=== PATIENT | female | born 1945 | race Caucasian/White ===

== ENCOUNTER → 2016-06-28 | Outpatient (CLI) | payer OTHER ==
[~2016-06-28] MED LIST: ASPI-482 PO; BENA20TA2 PO; CHLO1CAP50 PO; CRESTOR40 MG PO; DEXL60CA PO; METO25TA9 PO; RANI150T6 PO
--- NOTE | 2016-06-28 14:16 | CARD ---
APPROVED REPORT EXAM: Two-dimensional and M-mode echocardiogram with Doppler and color Doppler. Other Information Quality : Good INDICATION Aortic Valve Disease Dyspnea Hypertension/HCVD Murmur 2D DIMENSIONS RVDd3.1 (2.9-3.5cm)Left Atrium(2D)3.7 (1.6-4.0cm) IVSd1.1 (0.7-1.1cm)Aortic Root(2D)3.0 (2.0-3.7cm) LVDd4.4 (3.9-5.9cm)LVOT Diameter2.2 (1.8-2.4cm) PWd1.1 (0.7-1.1cm)LVDs2.8 (2.5-4.0cm) FS (%) 30.0 %SV59.7 ml LVEF(%)60.0 (>50%) M-Mode DIMENSIONS Aortic Cusp Exc1.03 (1.5-2.0cm) Aortic Valve AoV Peak Aubrey.278.8cm/sAoV VTI77.9cm AO Peak GR.31.1mmHgLVOT Peak Aubrey.82.1cm/s LVOT VTI 23.23cmAO Mean GR.17mmHg ELI (VMAX)1.67xc9MNK (VTI)1.16cm2 AI P 1/2 Vfwa925wc Mitral Valve MV E Ahuubywp741.7cm/sMV DECEL OSYY923ww MV A Auylhldh57.1cm/sMV FQL30fw E/A Ratio1.2MVA (PHT)4.08cm2 TDI E/Lateral E'11.9E/Medial E'12.0 Tricuspid Valve TR P. Cqupsoox163pc/sRAP ZUEGGHIG3mpSo TR Peak Gr.01auIcBZIF28gwVp Pulmonary Vein S1 Aiphhkft50.0cm/sD2 Rkjdsmiu27.8cm/s LEFT VENTRICLE The left ventricle is normal size. There is mild concentric left ventricular hypertrophy present The left ventricular systolic function is normal and the ejection fraction is within normal range. The Ej ection Fraction is 60%. There is normal LV segmental wall motion. RIGHT VENTRICLE The right ventricle is normal size. The right ventricular systolic function is normal. ATRIA The left atrium size is mildly dilated The right atrium size is normal. The interatrial septum is int act with no evidence for an atrial septal defect or patent foramen ovale as noted on 2-D or Doppler i maging. AORTIC VALVE The aortic valve is calcified and displays decreased opening. Doppler and Color Flow revealed mild to moderate aortic regurgitation. Calculated aortic valve area is 1.1 cm2 with maximum pressure gradien t of 33 mmHg and mean pressure gradient of 18 mmHg. Doppler and color-flow analysis revealed moderate aortic stenosis. MITRAL VALVE The mitral valve is normal in structure There is no evidence of mitral valve prolapse. There is no mi tral valve stenosis. Doppler and Color-flow revealed mild mitral regurgitation. TRICUSPID VALVE The tricuspid valve is normal in structure Doppler and Color Flow revealed physiological tricuspid re gurgitation. The PA pressure was estimated at 21 mmHg. There is no tricuspid valve stenosis. PULMONIC VALVE The pulmonary valve is normal in structure Doppler and Color Flow revealed trace to mild pulmonic katherine vular regurgitation. There is no pulmonic valvular stenosis. GREAT VESSELS The aortic root is normal in size. The ascending aorta is normal in size. The IVC is normal in size a nd collapses >50% with inspiration. PERICARDIAL EFFUSION There is no evidence of significant pericardial effusion. Critical Notification Critical Value: No <Conclusion> The left ventricular systolic function is normal and the ejection fraction is within normal range. The Ejection Fraction is 60%. There is mild concentric left ventricular hypertrophy present The left atrium size is mildly dilated The right atrium size is normal. The aortic valve is calcified and displays decreased opening. Doppler and Color Flow revealed mild to moderate aortic regurgitation. Calculated aortic valve area is 1.1 cm2 with maximum pressure gradient of 33 mmHg and mean pressure g radient of 18 mmHg. Doppler and color-flow analysis revealed moderate aortic stenosis. Doppler and Color-flow revealed mild mitral regurgitation. Doppler and Color Flow revealed physiological tricuspid regurgitation. The PA pressure was estimated at 21 mmHg. Doppler and Color Flow revealed trace to mild pulmonic valvular regurgitation. There is no evidence of significant pericardial effusion.
== END | disposition home or self-care (01) ==
LOC: ECHO 09:31
PROVIDERS: ATTEND Internal Medicine Cardiovascular Disease
DX: I08.3 Combined rheumatic disorders of mitral, aortic and tricuspid valves (principal); R06.02 Shortness of breath; R01.1 Cardiac murmur, unspecified
CPT/HCPCS: 93306

== ENCOUNTER 2016-08-24 08:13 | Emergency (ER) | payer OTHER ==
[~2016-08-24] VITALS: Ht 162.6 cm; Wt 67.6 kg
[~2016-08-24 08:13] MED LIST changes: -DEXL60CA PO; +DEXL60CA2 PO
--- NOTE | 2016-08-24 08:21 | PHYS DOC ---
Adult General Chief Complaint Chief Complaint: ABDOMINAL PAIN HPI HPI Patient is a 70 year old female presenting to the emergency department for evaluation of nausea vomiting. Symptoms started last night after eating some blueberries and she is concerned that she set off her diverticulitis although she denies any abdominal pain to me that she says that she has had no abdominal pain with prior flares of her diverticulitis. Patient denies any fevers chills chest pain shortness of breath diarrhea dysuria or hematuria. It appears that her emesis is nonbloody nonbilious and looks like some chunks of chicken. Review of Systems Review of Systems Constitutional: Denies fever or chills [] Eyes: Denies change in visual acuity, redness, or eye pain [] HENT: Denies nasal congestion or sore throat [] Respiratory: Denies cough or shortness of breath [] Cardiovascular: No additional information not addressed in HPI [] GI: Denies abdominal pain. + nausea, vomiting. No diarrhea [] : Denies dysuria or hematuria [] Musculoskeletal: Denies back pain or joint pain [] Integument: Denies rash or skin lesions [] Neurologic: Denies headache, focal weakness or sensory changes [] Current Medications Current Medications Current Medications Medications (Trade) Dose Ordered Sig/[place] Start Time Stop Time Status Last Admin Dose Admin Famotidine (Pepcid) 20 mg 1X ONCE 08/24/16 08:45 08/24/16 08:46 DC 08/24/16 08:52 20 MG Fentanyl Citrate (Fentanyl 2ml Vial) 50 mcg 1X ONCE 08/24/16 08:30 08/24/16 08:31 DC Iohexol (Omnipaque 300 Mg/ml) 75 ml 1X ONCE 08/24/16 09:15 08/24/16 09:16 DC 08/24/16 09:53 75 ML Multi-Ingredient Mouthwash/Gargle (Gi Cocktail Single Dose) 15 ml 1X ONCE 08/24/16 08:45 08/24/16 08:46 DC 08/24/16 08:52 15 ML Ondansetron HCl (Zofran) 8 mg 1X ONCE 08/24/16 08:30 08/24/16 08:31 DC Sodium Chloride 1,000 ml @ 1,000 mls/hr 1X ONCE 08/24/16 08:30 08/24/16 09:29 DC 08/24/16 08:31 1,000 MLS/HR Allergies Allergies Allergies Coded Allergies Type Severity Reaction Last Updated Verified ciprofloxacin Adverse Reaction Intermediate Nausea 04/27/15 Yes codeine Adverse Reaction Intermediate Nausea 04/27/15 Yes sulfamethoxazole Adverse Reaction Intermediate Nausea 04/27/15 Yes trimethoprim Adverse Reaction Intermediate Nausea 04/27/15 Yes ondansetron Adverse Reaction Unknown nausea, vomiting 08/24/16 Yes promethazine Adverse Reaction Unknown nausea, vomiting 08/24/16 Yes Physical Exam Physical Exam Constitutional: Well developed, well nourished, no acute distress, non-toxic appearance. [] HENT: Normocephalic, atraumatic, bilateral external ears normal, oropharynx moist, no oral exudates, nose normal. [] Eyes: PERRLA, EOMI, conjunctiva normal, no discharge. [] Neck: Normal range of motion, no tenderness, supple, no stridor. [] Cardiovascular:Heart rate regular rhythm, no murmur [] Lungs & Thorax: Bilateral breath sounds clear to auscultation [] Abdomen: Bowel sounds normal, soft, no tenderness, no masses, no pulsatile masses. [] Skin: Warm, dry, no erythema, no rash. [] Back: No tenderness, no CVA tenderness. [] Extremities: No tenderness, no cyanosis, no clubbing, ROM intact, no edema. [] Neurologic: Alert and oriented X 3, normal motor function, normal sensory function, no focal deficits noted. [] Current Patient Data Vital Signs Vital Signs Date Time Temp Pulse Resp B/P (MAP) Pulse Ox O2 Delivery O2 Flow Rate FiO2 08/24/16 10:37 100 33 172/73 (106) 95 08/24/16 08:19 98.4 Room Air 98.4 Lab Values Laboratory Tests Test 08/24/16 09:00 08/24/16 09:10 White Blood Count 7.0 x10^3/uL (4.0-11.0) Red Blood Count 4.73 x10^6/uL (3.50-5.40) Hemoglobin 12.3 g/dL (12.0-15.5) Hematocrit 37.1 % (36.0-47.0) Mean Corpuscular Volume 78 fL (79-100) L Mean Corpuscular Hemoglobin 26 pg (25-35) Mean Corpuscular Hemoglobin Concent 33 g/dL (31-37) Red Cell Distribution Width 15.2 % (11.5-14.5) H Platelet Count 126 x10^3/uL (140-400) L Neutrophils (%) (Auto) 88 % (31-73) H Lymphocytes (%) (Auto) 7 % (24-48) L Monocytes (%) (Auto) 5 % (0-9) Eosinophils (%) (Auto) 0 % (0-3) Basophils (%) (Auto) 0 % (0-3) Neutrophils # (Auto) 6.2 x10^3uL (1.8-7.7) Lymphocytes # (Auto) 0.5 x10^3/uL (1.0-4.8) L Monocytes # (Auto) 0.3 x10^3/uL (0.0-1.1) Eosinophils # (Auto) 0.0 x10^3/uL (0.0-0.7) Basophils # (Auto) 0.0 x10^3/uL (0.0-0.2) Prothrombin Time 13.2 SEC (11.7-14.0) Prothrombin Time INR 1.1 (0.8-1.1) PTT 22 SEC (24-38) L Sodium Level 144 mmol/L (136-145) Potassium Level 4.1 mmol/L (3.5-5.1) Chloride Level 107 mmol/L (98-107) Carbon Dioxide Level 28 mmol/L (21-32) Anion Gap 9 (6-14) Blood Urea Nitrogen 20 mg/dL (7-20) Creatinine 0.7 mg/dL (0.6-1.0) Estimated GFR (Cockcroft-Gault) 82.3 BUN/Creatinine Ratio 29 (6-20) H Glucose Level 140 mg/dL (70-99) H Calcium Level 8.1 mg/dL (8.5-10.1) L Magnesium Level 1.8 mg/dL (1.8-2.4) Total Bilirubin 0.9 mg/dL (0.2-1.0) Aspartate Amino Transferase (AST) 19 U/L (15-37) Alanine Aminotransferase (ALT) 19 U/L (14-59) Alkaline Phosphatase 95 U/L (46-116) Creatine Kinase 112 U/L (26-192) Troponin I Quantitative < 0.017 ng/mL (0.000-0.055) Total Protein 6.6 g/dL (6.4-8.2) Albumin 3.6 g/dL (3.4-5.0) Albumin/Globulin Ratio 1.2 (1.0-1.7) Lipase 127 U/L (73-393) Urine Collection Type Unknown Urine Color Yellow Urine Clarity Clear Urine pH 7.5 Urine Specific [place] 1.015 Urine Protein Negative mg/dL (NEG-TRACE) Urine Glucose (UA) Negative mg/dL (NEG) Urine Ketones (Stick) Negative mg/dL (NEG) Urine Blood Negative (NEG) Urine Nitrite Negative (NEG) Urine Bilirubin Negative (NEG) Urine Urobilinogen Dipstick 1.0 mg/dL (0.2 mg/dL) Urine Leukocyte Esterase Negative (NEG) Urine RBC 0 /HPF (0-2) Urine WBC 0 /HPF (0-4) Urine Squamous Epithelial Cells Few /LPF Urine Bacteria 0 /HPF (0-FEW) Laboratory Tests 08/24/16 09:00 Laboratory Tests 08/24/16 09:00 EKG EKG Normal sinus rhythm at 87 bpm with normal axis no obvious ST elevation or depression and normal T waves. Radiology/Procedures Radiology/Procedures Examination: CT of the abdomen pelvis without contrast History: History of nausea, vomiting, lower abdominal pain Comparison: None available Technique: Axial CT images of the abdomen pelvis were performed without contrast. Coronal and sagittal reformats are performed PQRS Compliance Statement: One or more of the following individualized dose reduction techniques were utilized for this examination: 1. Automated exposure control 2. Adjustment of the mA and/or kV according to patient size 3. Use of iterative reconstruction technique reduction Findings: Linear patchy airspace opacities identified in the right middle lobe the lung likely pneumonia or atelectasis. No evidence of free air identified in the abdomen. The evaluation of solid organs is limited due to lack of IV contrast. The evaluation of the bowel is limited due to lack of oral contrast. The visualized noncontrasted liver, spleen, adrenals grossly appears unremarkable. The gallbladder is not identified likely prior cholecystectomy changes. The common bile duct appears prominent measuring 1.6 cm likely postcholecystectomy changes. The visualized pancreas grossly unremarkable. Small hiatal hernia. The stomach is mildly distended. The small bowel is nondilated. The appendix is not identified. Feces and gas noted in the colon. Multiple sigmoid colon diverticulosis identified. The transverse colon, descending colon are collapsed. The urinary bladder is mildly distended. Tiny 2 mm cortical calcification or hyperdense cyst identified in the right kidney. No evidence of hydronephrosis. Moderate aortic atherosclerosis. Mild degenerative changes lumbar spine. Impression: 1. No acute intra-abdominal findings. 2. Sigmoid colon diverticulosis. 3. Patchy airspace opacities identified in the right middle lobe of the lung likely pneumonia or atelectasis. DICTATED and SIGNED BY: KIMMY MATHIAS MD DATE: 08/24/16 1016 Course & Med Decision Making Course & Med Decision Making Patient refused basically every medication I offered and ordered including Zofran and fentanyl GI cocktail and Pepcid. She was willing to have IV fluids and after 2 hours of observation the emergency department she is feeling asymptomatic and was drinking several glasses of water with no difficulty. Her repeat abdominal exam is benign and her repeat vital signs are normal as well so she'll be discharged in stable condition with instructions to follow with her primary care provider and come back to the ER sooner with any worsening pain fevers vomiting or other general concerns. Dragon Disclaimer Dragon Disclaimer This electronic medical record was generated, in whole or in part, using a voice recognition dictation system. Departure Departure Impression: Primary Impression: Nausea & vomiting Disposition: 01 HOME, SELF-CARE Condition: GOOD Referrals: CURTIS BARNES MD (PCP) Patient Instructions: Gastritis, Adult Problem Qualifiers Primary Impression: Nausea & vomiting Vomiting type: unspecified Vomiting Intractability: intractable Qualified Codes: R11.2 - Nausea with vomiting, unspecified FLY CASTILLO DO Aug 24, 2016 08:21
[2016-08-24] MEDS ORDERED: ONDANSETRON PF 4 MG/2 ML VIAL. ONE (08:26)
[2016-08-24] MEDS: ONDANSETRON PF 4 MG/2 ML VIAL. IV ONE ×2 (08:30→08:31)
[2016-08-24] MEDS ORDERED: fentaNYL PF VIAL 100 MCG/2 ML VIAL IV ONE (08:30)
[2016-08-24] MEDS ORDERED: IV NORMAL SALINE 1000ML BAG 1,000 ML IV ONE (08:30)
[2016-08-24] MEDS ORDERED: LIDO:MAALOX:DONNATAL 1:1:1 15 ML SINGLE DOSE SWSW ONE (08:45)
[2016-08-24] MEDS ORDERED: FAMOTIDINE 20 MG TABLET. PO ONE (08:45)
[2016-08-24] MEDS ORDERED: IOHEXOL 300 MG/ML 75 ML VIAL IV ONE (09:15)
[2016-08-24 09:25] LABS: BASO % 0 % (0-3); EOS % 0 % (0-3); HEMATOCRIT 37.1 % (36.0-47.0); HEMOGLOBIN 12.3 g/dL (12.0-15.5); LYMPH # 0.5 x10^3/uL (1.0-4.8); LYMPH % 7 % (24-48); MEAN CORPUSCULAR HEMOGLOBIN 26 pg (25-35); MEAN CORPUSCULAR HGB CONC 33 g/dL (31-37); MEAN CORPUSCULAR VOLUME 78 fL (79-100); MONO % 5 % (0-9); NEUT % 88 % (31-73); PLATELET COUNT 126 x10^3/uL (140-400); RED BLOOD COUNT 4.73 x10^6/uL (3.50-5.40); RED CELL DISTRIBUTION WIDTH 15.2 % (11.5-14.5)
[2016-08-24 09:36] LABS: BILIRUBIN,URINE NEGATIVE (NEG); GLUCOSE,URINE NEGATIVE (NEG); NITRITE,URINE NEGATIVE (NEG); PH,URINE 7.5; PROTEIN,URINE NEGATIVE (NEG-TRACE)
[2016-08-24 09:39] LABS: CALCIUM 8.1 mg/dL (8.5-10.1); CREATININE 0.7 mg/dL (0.6-1.0); GFR 82.3; POTASSIUM 4.1 mmol/L (3.5-5.1)
[2016-08-24 09:42] LABS: INR 1.1 (0.8-1.1); PROTHROMBIN TIME PATIENT 13.2 SEC (11.7-14.0)
[2016-08-24 09:45] LABS: ALBUMIN 3.6 g/dL (3.4-5.0); ALBUMIN/GLOBULIN RATIO 1.2 (1.0-1.7); MAGNESIUM 1.8 mg/dL (1.8-2.4); TOTAL BILIRUBIN 0.9 mg/dL (0.2-1.0); TOTAL PROTEIN 6.6 g/dL (6.4-8.2)
[2016-08-24 09:49] LABS: BACTERIA,URINE 0 /HPF (0-FEW); RBC,URINE 0 /HPF (0-2); SQUAMOUS EPITHELIAL CELL,UR FEW /LPF; WBC,URINE 0 /HPF (0-4)
--- NOTE | 2016-08-24 10:26 | RAD ---
Examination: CT of the abdomen pelvis without contrast History: History of nausea, vomiting, lower abdominal pain Comparison: None available Technique: Axial CT images of the abdomen pelvis were performed without contrast. Coronal and sagittal reformats are performed RS Compliance Statement: One or more of the following individualized dose reduction techniques were utilized for this examination: 1. Automated exposure control 2. Adjustment of the mA and/or kV according to patient size 3. Use of iterative reconstruction technique reduction Findings: Linear patchy airspace opacities identified in the right middle lobe the lung likely pneumonia or atelectasis. No evidence of free air identified in the abdomen. The evaluation of solid organs is limited due to lack of IV contrast. The evaluation of the bowel is limited due to lack of oral contrast. The visualized noncontrasted liver, spleen, adrenals grossly appears unremarkable. The gallbladder is not identified likely prior cholecystectomy changes. The common bile duct appears prominent measuring 1.6 cm likely postcholecystectomy changes. The visualized pancreas grossly unremarkable. Small hiatal hernia. The stomach is mildly distended. The small bowel is nondilated. The appendix is not identified. Feces and gas noted in the colon. Multiple sigmoid colon diverticulosis identified. The transverse colon, descending colon are collapsed. The urinary bladder is mildly distended. Tiny 2 mm cortical calcification or hyperdense cyst identified in the right kidney. No evidence of hydronephrosis. Moderate aortic atherosclerosis. Mild degenerative changes lumbar spine. Impression: 1. No acute intra-abdominal findings. 2. Sigmoid colon diverticulosis. 3. Patchy airspace opacities identified in the right middle lobe of the lung likely pneumonia or atelectasis.
[2016-08-24 10:37] VITALS: BP 172/73
--- NOTE | 2016-08-24 11:55 | EKG ---
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
== END 2016-08-24 10:58 | disposition home or self-care (01) ==
LOC: ER 08:13
DX: R11.2 Nausea with vomiting, unspecified (principal); Z88.1 Allergy status to other antibiotic agents; Z88.5 Allergy status to narcotic agent; Z88.2 Allergy status to sulfonamides; Z88.8 Allergy status to other drugs, medicaments and biological substances
CPT/HCPCS: 36415; 74177; 80053; 81001; 82550; 83690; 83735; 84484; 85027; 85610; 85730; 93005; 96360; 99285; J7030; Q9967; J2405

== ENCOUNTER → 2018-03-09 | Outpatient (CLI) | payer BC, MEDICARE ==
[2018-02-01 09:20] VITALS: BP 146/69
[~2018-03-09] MED LIST changes: +AMLO5TAB7 PO; +APIX5TAB PO; +ASPI81TA50 PO; -BENA20TA2 PO; +BENA20TA4 PO; +CHOL500016 PO; +DILTIAZEM HCL PO; +HYOS0.1264 PO; +METO-239 PO; -METO25TA9 PO; +RANI150T21 PO; -RANI150T6 PO; +REGADENOSON 0.4 MG/5 ML DISP.SYRIN. IV ONE
--- NOTE | 2018-03-09 13:14 | RAD ---
MR#: [id number] Date of Study: 03/09/2018 Ordering Physician: CHRISTOPHER MARCELINO, Referring Physician: JUNO BOYKIN Tech: RT Sariah (R) (N) APPROVED REPORT Test Type: Pharmacological Stress Nurse/Tech: Savannah Vann RN Test Indications: A. Fib Cardiac History: A.fib, , Hypertension, stroke (1 yr ago), on blood thiner (Eliquis) Medications: See Electronic Medical Record, See Electronic Medical Record Medical History: See Electronic Medical Record Resting ECG: SR, mild PAC on Lead V 4 to V6 and lead II Resting Heart Rate: 68 bpm Resting Blood Pressure: 158/63mmHg Pretest Chest Pain: None Nurse/Tech Notes Murmur, clear LS Consent: The procedure was explained to the patient in lay terms. Informed consent was witnessed. Bryce eout was entered into [employer]. History and Stress Test performed by Savannah Vann RN Pharm. Details Pharmacologic stress testing was performed using 0.4mg per 5ml of regadenoson given intravenously ove r 7-10 seconds. Stress Symptoms Flushing, Nausea POST EXERCISE Reason for Termination: Infusion complete Max HR: 106 bpm Max Blood Pressure: 156/67mmHg Chest Pain: No. Arrhythmia: Yes. Occasional Arrythmia on lead II, PAC, PVCS ST Change: No. INTERPRETATION Stress EKG Conclusion: No evidence of stress induced ischemic changes. Imaging Protocol IMAGE PROTOCOL: Rest Tc-99m/stress Tc-99m 1 day Rest: Stress: Viability: Radiopharm.Tc99m JiayawonlZt32v Sestamibi Dose10.6mCi 33mCi Duration 13min. 13min. Img Date 03/09/2018 03/09/2018 Inj-Img Lqgp66pup. 60min. Rest Admin Site:IV - Right AntecubitalAdministrator:ERICKA Ratliff Stress Admin Site: IV - Right AntecubitalAdministrator: ERICKA Ratliff STRESS DATA End Diast. Vol.76.0mlLVEDV index BSA42.0ml End Syst. Vol.27.0mlLVESV index BSA15.0ml Myocardial Wbuq271.0gEject. Vuafqfob33.0% Stress Scores Regional WT1.00Summed WT7.00 Regional WM0.00Summed WM6.00 The rest and stress images show normal perfusion, normal contraction and thickening. LV Perf. Quant 17 Seg. SSS0.00 17 Seg. SRS3.00 17 Seg. SDS0.00 Stress Defect Extent (% LAD)0.00Rest Defect Extent (% LAD)3.80Rev. Defect Extent (% LAD)0.00 Stress Defect Extent (% LCX) 0.00Rest Defect Extent (% LCX)0.00Rev. Defect Extent (% LCX)0.00 Stress Defect Extent (% RCA)0.00Rest Defect Extent (% RCA)28.90Rev. Defect Extent (% RCA)0.00 Stress Defect Extent (% ANKIT)0.00Rest Defect Extent (% ANKIT)10.20Rev. Defect Extent (% ANKIT)0.00 Other Information Quality:Good Risk Assessment: Low Risk Conclusion 1. No evidence of EKG changes with stress testing. 2. Normal perfusion at stress/rest. 3. Low risk study. 4. EF > 60%. Signed by : Alex Begum, Electronically Approved : 03/09/2018 13:12:31
== END | disposition home or self-care (01) ==
LOC: NM 09:17
PROVIDERS: ATTEND Internal Medicine Cardiovascular Disease
DX: I48.91 Unspecified atrial fibrillation (principal); I10 Essential (primary) hypertension; Z86.73 Personal history of transient ischemic attack (TIA), and cerebral infarction without residual deficits
CPT/HCPCS: 78452; 93017; 96374; A9500; J2785

== ENCOUNTER → 2018-07-01 | Outpatient (CLI) | payer BC, MEDICARE ==
[2018-02-01 09:20] VITALS: BP 146/69
[~2018-07-01] MED LIST changes: +AMLO5TAB10 PO; -AMLO5TAB7 PO; +RANI-376 PO; -RANI150T21 PO; -REGADENOSON 0.4 MG/5 ML DISP.SYRIN. IV ONE
--- NOTE | 2018-07-01 14:42 | KCIC ---
Three-view right shoulder dated 07/01/2018. No comparison available. Clinical data indication: Pain and decreased range of motion. Findings 3 views right shoulder show normal bony alignment. No displaced fracture. Mild hypertrophic change of the AC joint. No acute osseous or articular abnormality. IMPRESSION: No acute radiographic abnormality. Electronically signed by: Felipe Fulton MD (07/01/2018 2:39 PM) [id number]
== END | disposition home or self-care (01) ==
LOC: KCIC 14:01
PROVIDERS: ATTEND Nurse Practitioner Family
DX: M89.311 Hypertrophy of bone, right shoulder (principal)
CPT/HCPCS: 73030

== ENCOUNTER → 2019-01-04 | Outpatient (CLI) | payer BC ==
[2018-02-01 09:20] VITALS: BP 146/69
[~2019-01-04] MED LIST changes: +DILT240C33 PO; +LACT1CAP6 PO; +LUBI8CAP4 PO; +METO50TA4 PO; +domperidone PO
[2019-01-04 09:34] LABS: BASO # 0.1 x10^3/uL (0.0-0.2); BASO % 1 % (0-3); EOS # 0.1 x10^3/uL (0.0-0.7); EOS % 2 % (0-3); HEMATOCRIT 33.3 % (36.0-47.0); HEMOGLOBIN 10.6 g/dL (12.0-15.5); LYMPH # 0.9 x10^3/uL (1.0-4.8); LYMPH % 13 % (24-48); MEAN CORPUSCULAR HEMOGLOBIN 23 pg (25-35); MEAN CORPUSCULAR HGB CONC 32 g/dL (31-37); MEAN CORPUSCULAR VOLUME 73 fL (79-100); MONO # 0.6 x10^3/uL (0.0-1.1); MONO % 9 % (0-9); NEUT # 5.4 x10^3/uL (1.8-7.7); NEUT % 76 % (31-73); PLATELET COUNT 171 x10^3/uL (140-400); RED BLOOD COUNT 4.59 x10^6/uL (3.50-5.40); RED CELL DISTRIBUTION WIDTH 16.9 % (11.5-14.5); WHITE BLOOD COUNT 7.2 x10^3/uL (4.0-11.0)
[2019-01-04 09:46] LABS: PROTHROMBIN TIME PATIENT 14.8 SEC (11.7-14.0)
[2019-01-04 09:48] LABS: ALBUMIN 3.5 g/dL (3.4-5.0); CALCIUM 9.1 mg/dL (8.5-10.1); CREATININE 0.9 mg/dL (0.6-1.0); POTASSIUM 4.1 mmol/L (3.5-5.1)
[2019-01-04 12:38] LABS: BILIRUBIN,URINE NEGATIVE (NEG); CLARITY,URINE CLEAR; COLOR,URINE YELLOW; NITRITE,URINE NEGATIVE (NEG); PROTEIN,URINE NEGATIVE (NEG-TRACE)
--- NOTE | 2019-01-04 12:42 | EKG ---
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
[2019-01-04 13:01] LABS: SQUAMOUS EPITHELIAL CELL,UR FEW /LPF
[2019-01-04 13:02] LABS: HYALINE CASTS, URINE OCCASIONAL /HPF; RBC,URINE 0 /HPF (0-2)
--- NOTE | 2019-01-04 14:05 | RAD ---
AP and Lateral Views of the Chest 01/04/2019 9:06 AM Indication: Preoperative Comparison: None . Findings: Projects over the left upper lobe. There is no other focal consolidation or infiltrate identified. The cardiomediastinal silhouette is within normal limits. There is no evidence of pneumothorax or pleural effusion. No acute osseous abnormalities are identified. Impression: No evidence of acute cardiopulmonary process. Electronically signed by: Hansel Hooks MD (01/04/2019 2:01 PM) [id number]
[2019-01-04 15:53] LABS: BACTERIA,URINE FEW /HPF (0-FEW)
== END | disposition home or self-care (01) ==
LOC: SURGPAT 13:21
PROVIDERS: ATTEND Orthopaedic Surgery
DX: Z01.818 Encounter for other preprocedural examination (principal); M17.12 Unilateral primary osteoarthritis, left knee; Z88.8 Allergy status to other drugs, medicaments and biological substances
CPT/HCPCS: 36415; 71046; 80048; 81001; 82040; 82306; 85025; 85610; 85651; 85730; 87086; 87641; 93005

== ENCOUNTER 2019-01-26 08:20 | Inpatient (IN) | payer BC, MEDICARE ==
[2019-01-26] VITALS (8 sets, daily range): BP systolic 124–143; BP diastolic 62–70
[~2019-01-26] VITALS: Ht 162.6 cm; Wt 80.7 kg
[~2019-01-26 08:20] MED LIST changes: +ACETAMINOPHEN 500 MG TABLET PO PRN; +CLINDAMYCIN 900MG PREMIX 50 ML IV PRN; +IV RINGERS,LACTATED 1000ML 1,000 ML IV SCH; +KETOROLAC 30MG VIAL 30 MG, ROPIVacaine 0.5% PF 60 ML, EPINEPHrine 0.5 MG in IV NORMAL S... INJ ONE; +SCOPOLAMINE 1.5MG PATCH. TD SCH; +TOBRAMYCIN POWDER 1.2 GM VIAL. ONE; +TRANEXAMIC ACID 1,000 MG in IV NS 50ML -- 1ST BAG INJ ONE; +TRANEXAMIC ACID 1,000 MG in IV NS 50ML -- 2ND BAG INJ ONE; +VANCOMYCIN 1 GM VIAL. ONE; +fentaNYL PF VIAL 100 MCG/2 ML VIAL IV PRN
--- NOTE | 2019-01-26 08:28 | PDOC1 ---
History and Physical Date of Admission Date of Admission DATE: 01/26/19 TIME: 08:22 Identification/Chief Complaint Chief Complaint left knee pain Source Source: Chart review, Patient History of Present Illness History of Present Illness Ms. Lu is a 73-year-old woman who presents with chronic bilateral knee pain, here for left total knee arthroplasty. She notes pain "with every step" in her left knee that impacts her daily activities. She has a history of left knee scope with me a long time ago. She has been getting injections periodically which used to help but are not helping enough anymore. History of atrial fibrillation, aortic stenosis, and breast cancer. History of stroke many years ago as well, which she now takes eliquis for. Denies any prior use of narcotics, smoking, or metal/nickel allergy. Severe nausea and vomiting after anesthesia. Past Medical History Past Medical History Heart murmur. Chronic insomnia. Anxiety. IBS. GERD. Hyperlipidemia. Hypertension. Atrial fibrillation. CVA. Breast cancer. Stroke 2015?. 03/27/2015 colonoscopy-Dr. Sykes-internal hemorrhoids and diverticulosis. Cardiovascular: AFIB, HTN Pulmonary: No pertinent hx CENTRAL NERVOUS SYSTEM: TIA GI: Other Heme/Onc: Cancer Hepatobiliary: No pertinent hx Psych: No pertinent hx Rheumatologic: No pertinent hx Infectious disease: No pertinent hx Renal/: No pertinent hx Endocrine: No pertinent hx Past Surgical History Past Surgical History Cholecystectomy Cyst on ovary Bone spur right foot Knee surgery Partial hysterectomy Past Surgical History: Appendectomy, Hysterectomy Family History Family History: No Significant Family History: Other Social History Smoke: No ALCOHOL: none Drugs: None Current Medications Current Medications Current Medications Ketorolac Tromethamine 30 mg/Ropivacaine 60 ml/Epinephrine HCl 0.5 mg/Sodium Chloride 99.5 ml @ 99.5 mls/hr 1X ONCE INJ ; Start 01/26/19 at 06:00; Stop 01/26/19 at 06:59; Status DC Fentanyl Citrate (Fentanyl 2ml Vial) 25 mcg PRN Q5MIN PRN IV MILD PAIN 1-3; Start 01/26/19 at 07:00; Stop 01/27/19 at 06:59 Fentanyl Citrate (Fentanyl 2ml Vial) 50 mcg PRN Q5MIN PRN IV MODERATE TO SEVERE PAIN; Start 01/26/19 at 07:00; Stop 01/27/19 at 06:59 Ringer's Solution 1,000 ml @ 30 mls/hr Q24H IV ; Start 01/26/19 at 07:00; Stop 01/26/19 at 18:59 Scopolamine (Transderm-Scop) 1 patch Q3DAYS TD ; Start 01/26/19 at 07:00 Acetaminophen (Tylenol) 1,000 mg 1X PREOP PRN PO PRIOR TO PROCEDURE; Start 01/26/19 at 06:00; Stop 01/26/19 at 18:00 Clindamycin Phosphate 50 ml @ 100 mls/hr 1X PREOP PRN IV PRIOR TO PROCEDURE; Start 01/26/19 at 06:00; Stop 01/26/19 at 18:00 Tranexamic Acid 1000 mg/Sodium Chloride 60 ml @ 60 mls/hr 1X PERIOP ONCE INJ ; Start 01/26/19 at 06:00; Stop 01/26/19 at 06:59; Status DC Tranexamic Acid 1000 mg/Sodium Chloride 60 ml @ 60 mls/hr 1X PERIOP ONCE INJ ; Start 01/26/19 at 08:00; Stop 01/26/19 at 08:59 Vancomycin HCl (Vancomycin) 1 gm STK-MED ONCE .ROUTE ; Start 01/26/19 at 07:23; Stop 01/26/19 at 07:24; Status DC Tobramycin Sulfate (Tobramycin Powder) 1.2 gm STK-MED ONCE .ROUTE ; Start 01/26/19 at 07:24; Stop 01/26/19 at 07:24; Status DC Vancomycin HCl (Vancomycin) 1 gm STK-MED ONCE .ROUTE ; Start 01/26/19 at 07:24; Stop 01/26/19 at 07:24; Status DC Active Scripts Active Eliquis (Apixaban) 5 Mg Tablet 5 Mg PO BID 30 Days Reported Amitiza (Lubiprostone) 8 Mcg Capsule 8 Mcg PO DAILY Toprol XL (Metoprolol Succinate) 50 Mg Tab.er.24h 25 Mg PO DAILY Probiotic (Lactobacillus Acidophilus) 1 Each Capsule 1 Each PO DAILY [domperidone] 10 Mg PO BID Diltiazem 24Hr Cd (Diltiazem HCl) 240 Mg Cap.er.24h 240 Mg PO DAILY Vitamin D3 (Cholecalciferol (Vitamin D3)) 5,000 Unit Tablet 5,000 Unit PO DAILY Aspir-Low (Aspirin) 81 Mg Tablet.dr 81 Mg PO DAILY Benazepril Hcl 20 Mg Tablet 20 Mg PO DAILY PRN Crestor (Rosuvastatin Calcium) 40 Mg Tablet 20 Mg PO HS Dexilant (Dexlansoprazole) 60 Mg mp 60 Mg PO DAILY Allergies Allergies: Coded Allergies: adhesive tape (Verified Allergy, Severe, BANDAIDS - TEARS OFF SKIN, 01/06/19) adhesive (Verified Adverse Reaction, Severe, 01/06/19) tears off skin amoxicillin (Verified Adverse Reaction, Intermediate, Nausea and Vomiting, 01/06/19) ciprofloxacin (Verified Adverse Reaction, Intermediate, Nausea, 04/27/15) codeine (Verified Adverse Reaction, Intermediate, Nausea, 04/27/15) sulfamethoxazole (Verified Adverse Reaction, Intermediate, Nausea, 04/27/15) trimethoprim (Verified Adverse Reaction, Intermediate, Nausea, 04/27/15) ondansetron (Verified Adverse Reaction, Unknown, nausea, vomiting, 08/24/16) promethazine (Verified Adverse Reaction, Unknown, nausea, vomiting, 08/24/16) ROS Review of System Skin Problems Denies. Night Sweats Denies. Aggitation Denies. Excessive Thirst Denies. Weight or Appetite Change Denies. Edema or Swelling Denies. Chest Pain Denies. Irregular Heart Beats or Palpitations Denies. Shortness of Breath Denies. Frequent Cough Denies. Joint Pain, Swelling, or Stiffness See HPI. Weakness or Fatigue Denies. Abdominal Pain Denies. Nausea or Vomiting Denies. Diarrhea or Constipation Denies. Blood in Stools or Urine Denies. Fever Denies. Problems with Urination Denies. Mood problems Denies. Headaches Denies. Dizziness or Balance Problems Denies. Upper respiratory symptoms Denies. Physical Exam General: Alert, Cooperative HEENT: Atraumatic Heart: RRR Extremities: No clubbing, No cyanosis, Other (The LEFT knee shows a mildly antalgic gait. There is varus alignment. No masses. No detectable effusion. Tenderness on the joint lines. Range of motion is 5-115 degrees. There is crepitus with range of motion, and pain at the extremes of motion. The knee is stable to varus and valgus stress without subluxation or laxity. Muscle strength is slightly weak for the quadriceps 4+/5 which may be due to pain or avoidance, and does not seem neurogenic, and the muscle tone and bulk is slightly decreased. The hamstring strength is 5/5. The skin is normal with no scars, rashes, lesions or ulcers. Light touch sensation is intact. No edema and no varicosities. Dorsalis pedis pulse is intact and capillary refill is normal.) Skin: No significant lesion Neuro: Normal speech, Sensation intact Psych/Mental Status: Mental status NL, Mood NL Images [facility] [address] [place] [address] IMAGING REPORT Signed PATIENT: RADHA LU ACCOUNT: [id number] : 1945 LOCATION: [facility] AGE: 72 SEX: F EXAM STATUS: PRE CLI ORD. PHYSICIAN: ABRIL DIXON MD REASON: PROCEDURE: KNEE BILAT 3V EXAM: Bilateral knees, 3 views. HISTORY: Pain. COMPARISON: None. FINDINGS: 3 views of both knees are obtained. There is bilateral medial compartment joint space narrowing and subchondral sclerosis. There is mild bilateral medial compartment predominant tricompartmental spurring. There is small bilateral knee effusions. There are gastric calcifications. IMPRESSION: 1. Mild to moderate medial compartment and mild lateral and patellofemoral compartment osteoarthritis of both knees. 2. Small bilateral knee effusions. Electronically signed by: Jody Escobedo MD (04/20/2018 10:38 AM) [facility] DICTATED and SIGNED BY: JODY ESCOBEDO MD DATE: 04/20/18 1038 VTE Prophylaxis Ordered VTE Prophylaxis Devices: Yes VTE Pharmacological Prophylaxi: Yes Assessment/Plan Assessment/Plan The patient has osteoarthritis of her left knee. I believe she has used nonoper ative treatment but is no longer sufficient, and I recommended total knee replacement. We discussed the potential risks of infection, neurovascular injury, bleeding, blood clots, malalignment, need for revision surgery, or other potential surgical or anesthetic complications that could result from her history of atrial fibrillation and aortic stenosis. We also discussed postoperative treatment and expectations. I explained that total knee replacement may not completely help with her trouble walking as I also believe that she has some hip pathology. All of her questions were answered and she desires to proceed with surgery. She is here today for elective left total knee arthroplasty, robotic assisted. ABRIL DIXON MD Jan 26, 2019 08:28
[2019-01-26] MEDS ORDERED: fentaNYL PF VIAL 100 MCG/2 ML VIAL ONE ×2 (09:11→11:56)
[2019-01-26] MEDS ORDERED: ROCURONIUM 50 MG/5 ML VIAL. ONE (09:11)
[2019-01-26] MEDS ORDERED: ONDANSETRON PF 4 MG/2 ML VIAL. ONE (09:11)
[2019-01-26] MEDS ORDERED: DEXAMETHASONE SOD PHOS 20 MG/5 ML VIAL. ONE (09:11)
[2019-01-26] MEDS ORDERED: PROPOFOL 20 ML IV ONE (09:11)
[2019-01-26] MEDS ORDERED: LIDOCAINE 2% PF 5 ML VIAL. ONE (09:11)
[2019-01-26] MEDS ORDERED: FAMOTIDINE 20 MG/2 ML VIAL ONE (09:11)
[2019-01-26] MEDS ORDERED: SCOPOLAMINE 1.5MG PATCH. TD ONE ×2 (09:15→09:30)
[2019-01-26] MEDS ORDERED: diphenhydrAMINE 50 MG/ML VIAL ONE (09:53)
[2019-01-26] MEDS ORDERED: PHENYLEPHRINE in 0.9% NACL PF 1 MG/10 ML SYRINGE. IV ONE (09:59)
[2019-01-26] MEDS ORDERED: ePHEDrine PF IN SALINE 50 MG/10 ML SYRINGE. IV ONE (10:12)
[2019-01-26] MEDS ORDERED: GLYCOPYRROLATE 1 MG/5 ML VIAL. ONE (11:25)
[2019-01-26] MEDS ORDERED: DESFLURANE > 120 MINUTES IH ONE (11:25)
[2019-01-26] MEDS ORDERED: NEOSTIGMINE METHYLSULFATE 5 MG/5 ML SYRINGE. ONE (11:25)
[2019-01-26] MEDS ORDERED: fentaNYL PF VIAL 100 MCG/2 ML VIAL IV PRN (12:00)
[2019-01-26] MEDS ORDERED: ZOLPIDEM 5 MG TABLET. PO PRN (12:00)
[2019-01-26] MEDS ORDERED: PROCHLORPERAZINE 5 MG TABLET. PO PRN (12:00)
[2019-01-26] MEDS ORDERED: DEXTROSE 50% 25 GM / 50ML DISP.SYRIN. IV PRN (12:00)
[2019-01-26] MEDS ORDERED: METOCLOPRAMIDE HCL 10 MG/2 ML VIAL. IV PRN (12:00)
[2019-01-26] MEDS ORDERED: MORPHINE SULFATE 2 MG/ML VIAL. IV PRN (12:00)
[2019-01-26] MEDS ORDERED: diphenhydrAMINE 50 MG/ML VIAL IV PRN (12:00)
[2019-01-26] MEDS: MULTIVITAMIN with MINERAL TABLET. PO SCH (12:00)
[2019-01-26] MEDS ORDERED: oxyCODONE/APAP 5/325 1 TAB TABLET PO PRN ×2 (12:00→12:30)
[2019-01-26] MEDS ORDERED: 0.9 % SODIUM CHLORIDE 10 ML DISP.SYRIN. IV PRN (12:00)
--- NOTE | 2019-01-26 12:00 | PDOC4 ---
Operative Note Operative Note Date of Procedure: January 26, 2019 Pre-Op Diagnosis: Unilateral primary osteoarthritis, left knee. M17.12 Post-Op Diagnosis: same Procedure: left total knee arthroplasty with patella resurfacing, robotic assisted, CPT 34714 Surgeon: Abril Vazquez MD Ski Lift Operator: PATRICIO Kirk Anesthesia: General EBL: 100 mL Specimens Obtained: left knee bone and soft tissue Complications: none Drains: Hemovac plus pain catheter Tourniquet time: 69 Minutes Tourniquet Pressure: 300 mm Hg Indications for Procedure: Knee arthritis pain, affecting quality of life, u nrelieved by nonoperative management Findings: Severe osteoarthritis with bone on bone contact medially with full thickness cartilage loss in the patellofemoral and lateral compartments Implants: Buitrago & Nephew Journey II Total Knee System, Size 4 left bicruciate stabilized Journey II BCS cobalt chrome femoral component, size 4 left Journey nonporous tibial baseplate, size 3-4 11 mm left Journey II BCS XLPE articular insert, 32 mm oval Hina II resurfacing patellar component Procedure in Detail: The patient was identified in the preoperative holding area, and the correct left lower extremity was marked by me. The patient was taken to the operating room where the patient was anesthetized by the Department of Anesthesia. Preoperative antibiotics were given intravenously. Tranexamic acid 1 g was given intravenously for intraoperative hemostasis. A "time-out" procedure was perfor med. The patient was positioned supine on the operative table with a tourniquet on the upper left thigh. A lateral thigh brace and heel bump were attached to the operating table for later intraoperative positioning. The left lower limb was thoroughly scrubbed, then sterile Chloraprep solution was applied, and the limb was draped in sterile fashion. An impervious stockinet and an adhesive drape were used such that the skin was entirely covered. The operating team wore personal exhaust-ventilated hoods. The limb was exsanguinated with an Esmarch bandage, and the tourniquet was inflated. A midline skin incision was made with a scalpel using the patella and tibial tubercle as landmarks. Electrocautery was used for hemostasis. My medical claims assistant used rake retractors. A medial parapatellar arthrotomy incision was used with extension into the distal quadriceps tendon. The patella was retracted laterally and Hohmann retractors were now used by my medical claims assistant. Excess synovium, the menisci, and the cruciate ligaments were resected sharply. A periarticular multimodal ropivacaine anesthetic injection was used in the suprapatellar pouch and distal quadriceps muscle. The patella was everted and exposed. The patella thickness was measured with a caliper, and then cut freehand with a saw, using caliper measurements to assess the resection. The lateral retinaculum was partially released from the lateral patella using electrocautery. Rongeurs were used to make sure there were no remaining exposed patellar osteophytes medially or laterally. The patella was sized, and then drilled for an oval three-peg patella component. The tibial tracker array for the NAVIO system was applied to the tibial crest four finger breadths below the tibial tubercle, using percutaneous incisions and bicortical pins. The femoral tracker array was applied through the original incision, using bicortical pins. Checkpoint verification pins were applied to the femur and tibia. Using the point probe, the medial and lateral malleoli were localized and the l ocations were stored. The center of the tibia was noted at the anterior cruciate ligament insertion and stored. The center of the femur was marked at the intersection of Whitesidess line with the transepicondylar axis. The hip center calculation was performed with range of motion of the hip. The femur neutral position was identified, and simulated weightbearing was performed with axial compression on the foot. Range of motion without stress was performed and the data collected. Range of motion with valgus stress, and range of motion with varus stress data collection was also performed. Rotational references include the Whitesidess line, and the trans-epicondylar axis. The femoral articular surface was now mapped in 3 dimensions using the point probe and digital data collected. The tibial condyle articular surfaces and cortical edges were mapped in 3 dimensions using the point probe including the medial and lateral tibial plateau. Implant planning was now performed on-screen with manipulation of the implant sizes, cut thicknesses and gaps, component rotation, component flexion/extension and component varus/valgus until satisfactory ligament balance, alignment and stability of the knee was expected throughout the range of motion. My medical claims assistant held Hohmann retractors and an [facility] retractor to protect the medial and lateral collateral ligaments, the patellar tendon, the skin and the other soft tissues. The point probe was used to confirm the location of the checkpoint verification pins. The distal femoral surface was now prepared using the Anspach nash with footpedal, and the NAVIO handpiece for bone removal to the previously planned distal femoral resection. The crosshairs at the pin locations were marked by using a mallet and the point probe for definitive location. A 5-in-1 Journey II cutting guide was then applied and the position was checked with the virtual joycelyn wing from the NAVIO to ensure proper placement as the pins were applied. The posterior, anterior, and all chamfer cuts were made with the oscillating saw. Excess bone was removed with an osteotome and rongeurs. The tibial cutting guide was applied, positioned using the virtual joycelyn wing, and secured to the upper tibia using three pins at the previously planned location. The virtual joycelyn wing was used to confirm the resection depth, slope and coronal alignment. The upper tibia was cut made with an oscillating saw. My medical claims assistant held Hohmann retractors and a posterior cruciate ligament retractor to protect the medial and lateral collateral ligaments, the patellar tendon, the skin, the peroneal nerve and the other soft tissues. The upper tibia was sized with a trial baseplate. The posterior compartment was cleared of osteophytes and loose bodies. The periarticular anesthetic injection was used in the posterior compartment. The box cut for a posterior stabilized component was made. A preliminary reduction was performed with a trial femur, trial tibial baseplate and trial polyethylene. The NAVIO system was used to confirm range of motion, and postoperative stressed gap assessment. No additional releases were required. The stability was assessed using different thicknesses of tibial articular surface to find satisfactory stability and good range of motion. The rotation of the tibial component was marked on the upper tibia. Final trial reduction was now performed verifying patella tracking and tibiofemoral stability and alignment. The bone pins and tracker arrays were removed, and the checkpoint verification pins were removed. The tibia preparation was completed with a drill, saw, and fin punch at the previously noted rotation. The final implants were verified and opened. Outer gloves were changed by the operating team. Betadine lavage was used. The bone cuts were irrigated with saline using the Atticous InterPulse device and then dried with suction and laparotomy sponges. Two packages of Buitrago + Nephew Rally HV bone cement were mixed in powdered form with Vancomycin 1gm and Tobramycin 1.2 gm, and then vacuum-mixed with the monomer, and placed into a cement gun. The cut surfaces of the bone were thoroughly dried with suction and with laparotomy sponges for cement i nterdigitation. The final components were cemented into place. The knee was kept at full extension while the cement hardened, and excess cement was removed. A Betadine lavage was used throughout the surgical exposure, and allowed to sit in contact with the exposed joint surfaces for three minutes while the cement hardened. Tranexamic acid 1 g was redosed intravenously for additional intraoperative hemostasis. The tourniquet was released, and electrocautery was used for hemostasis. A final periarticular anesthetic injection was used for pain relief. The bone pin sites on the tibial crest were closed with #3-0 Nylon sutures. A final check of [id number] and stability was made, and the polyethylene implant final size was chosen. The polyethylene implant was secured to the tibial baseplate, and the knee was reduced a final time and range of motion and stability was confirmed. Thorough irrigation was used. A pain catheter, and a 15 Fr Hemovac were inserted. Topical Vancomycin 1 gm was used during the closure. The arthrotomy was closed with interrupted [id number] #1 PDS suture. The arthrotomy incision was then run with #1 STRATAFIX Symmetric PDS Plus Knotless suture. The subcutaneous tissues were approximated initially with 2-0 PDS inverted interrupted sutures by my medical claims assistant. Next the subcuticular layer was approximated in a running fashion with #3-0 STRATAFIX suture by my medical claims assistant. The skin incision was then covered and reinforced by my medical claims assistant with Acticoat, followed by a GIFTY single use negative pressure wound therapy dressing Soft roll and an Donald wrap were applied. Needle and sponge counts were correct. There were no apparent complications. The patient returned to the recovery room in stable condition. ABRIL VAZQUEZ MD Jan 26, 2019 12:00
[2019-01-26] MEDS ORDERED: CLINDAMYCIN 900MG PREMIX 50 ML IV SCH (12:15)
[2019-01-26] MEDS: CHOLECALCIFEROL (VITAMIN D3) 5,000 UNIT CAPSULE PO SCH (13:00)
[2019-01-26] MEDS: LACTOBACILLUS RHAMNOSUS GG 1 CAPSULE. PO SCH (13:00)
[2019-01-26] MEDS: SENNOSIDES/DOCUSATE 8.6/50MG TABLET. PO SCH (13:00)
[2019-01-26] MEDS: METOPROLOL SUCC 24HR ER 50 MG TAB.ER.24H. PO SCH (13:00)
--- NOTE | 2019-01-26 13:17 | RAD ---
2 view left knee study Clinical indications: Postoperative exam FINDINGS: Total left knee arthroplasty is evident which is well aligned. No acute fracture or lytic process is seen. IMPRESSION: Total left knee arthroplasty. Electronically signed by: Moris Brown MD (01/26/2019 1:14 PM) [facility] [place]
--- NOTE | 2019-01-26 14:36 | NUR ---
arrived to the floor at 1330. Eddi at bedside. she is denying pain and nausea. both states that she is unable to take pain pills. because of gastroparesis; they do not work. it is not unusual for her throw them up 8-12 hrs later. reviewed and consulted Elissa our window framer regarding this. will try elixir to see if this works at this time
[2019-01-26] MEDS ORDERED: ANTI-COAG MONITOR BY PHARMACY. MC PRN (14:45)
[2019-01-26] MEDS: LISINOPRIL 20 MG TABLET PO SCH (15:01)
[2019-01-26] MEDS: CALCIUM CARBONATE 500 MG TAB.CHEW PO PRN (15:06)
[2019-01-26] MEDS: PANTOPRAZOLE 40 MG TABLET.DR. PO SCH (16:49)
[2019-01-26] MEDS: CLINDAMYCIN 900MG PREMIX 50 ML IV SCH ×2 (16:50→21:59)
[2019-01-26] MEDS: KETOROLAC 30MG VIAL 30 MG, BUPIVACAINE MPF 0.25% 20 ML, EPINEPHrine 0.5 MG in TOTAL VOL... INT ART SCH (18:24)
[2019-01-26] MEDS: IV NORMAL SALINE 1000ML BAG 1,000 ML IV SCH (18:25)
[2019-01-26] MEDS ORDERED: SALIVA STIMULANT AGENT 44ML SPRAY BOTTLE. PO PRN (18:30)
[2019-01-26] MEDS: ATORVASTATIN CALCIUM 40 MG TABLET. PO SCH (21:00)
[2019-01-27 03:00] VITALS: BP 141/73
[2019-01-27] MEDS: CLINDAMYCIN 900MG PREMIX 50 ML IV SCH (04:31)
[2019-01-27 05:08] LABS: HEMATOCRIT 28.8 % (36.0-47.0); HEMOGLOBIN 8.9 g/dL (12.0-15.5); RED CELL DISTRIBUTION WIDTH 18.3 % (11.5-14.5); WHITE BLOOD COUNT 12.2 x10^3/uL (4.0-11.0)
--- NOTE | 2019-01-27 05:24 | NUR ---
Voids frequently. Brief on. No c/o pain related to surgery.
[2019-01-27] MEDS ORDERED: MAGNESIUM HYDROXIDE 2,400 MG/30 ML ORAL.SUSP. PO PRN (06:00)
[2019-01-27] MEDS: KETOROLAC 30MG VIAL 30 MG, BUPIVACAINE MPF 0.25% 20 ML, EPINEPHrine 0.5 MG in TOTAL VOL... INT ART SCH (06:00)
[2019-01-27 07:08] VITALS: BP 132/64
--- NOTE | 2019-01-27 07:10 | NUR ---
IAC occluded. No c/o knee pain. C/o "sore throat"- popsicle given.
--- NOTE | 2019-01-27 07:50 | PDOC ---
ORTHO PROGRESS NOTES Subjective Patient states pain is mild at this time with no new complaints. Post-op Day: 1 Procedure L TKA Vitals Vital Signs Date Time Temp Pulse Resp B/P (MAP) Pulse Ox O2 Delivery O2 Flow Rate FiO2 01/27/19 07:08 98.5 87 20 132/64 (86) 94 Room Air 98.5 01/26/19 12:35 10 Labs Laboratory Tests Test 01/27/19 04:05 White Blood Count 12.2 x10^3/uL (4.0-11.0) Red Blood Count 4.00 x10^6/uL (3.50-5.40) Hemoglobin 8.9 g/dL (12.0-15.5) Hematocrit 28.8 % (36.0-47.0) Mean Corpuscular Volume 72 fL (79-100) Mean Corpuscular Hemoglobin 22 pg (25-35) Mean Corpuscular Hemoglobin Concent 31 g/dL (31-37) Red Cell Distribution Width 18.3 % (11.5-14.5) Platelet Count 171 x10^3/uL (140-400) Laboratory Tests Test 01/27/19 04:05 White Blood Count 12.2 x10^3/uL (4.0-11.0) Red Blood Count 4.00 x10^6/uL (3.50-5.40) Hemoglobin 8.9 g/dL (12.0-15.5) Hematocrit 28.8 % (36.0-47.0) Mean Corpuscular Volume 72 fL (79-100) Mean Corpuscular Hemoglobin 22 pg (25-35) Mean Corpuscular Hemoglobin Concent 31 g/dL (31-37) Red Cell Distribution Width 18.3 % (11.5-14.5) Platelet Count 171 x10^3/uL (140-400) Notes Awake and alert sitting up in chair at bedside eating breakfast. Assessment and Plan POD 3 1 S/P L TKA motor and sensation intact distally dressing dry and intact Patient accidentally pullled drain when getting out of bed. IAC not patent PT/OT today RYAN JULIAN APRN Jan 27, 2019 07:50
[2019-01-27] MEDS: LUBIPROSTONE 24 MCG CAPSULE PO SCH (08:30)
[2019-01-27] MEDS: CHOLECALCIFEROL (VITAMIN D3) 5,000 UNIT CAPSULE PO SCH (08:31)
[2019-01-27] MEDS: LACTOBACILLUS RHAMNOSUS GG 1 CAPSULE. PO SCH (08:31)
[2019-01-27] MEDS: SENNOSIDES/DOCUSATE 8.6/50MG TABLET. PO SCH (08:32)
[2019-01-27] MEDS: MULTIVITAMIN with MINERAL TABLET. PO SCH (08:32)
[2019-01-27] MEDS: ASPIRIN ENTERIC COATED 81 MG TABLET.DR. PO SCH (08:33)
[2019-01-27] MEDS: PANTOPRAZOLE 40 MG TABLET.DR. PO SCH ×2 (08:33→19:27)
[2019-01-27] MEDS: METOPROLOL SUCC 24HR ER 50 MG TAB.ER.24H. PO SCH (08:37)
[2019-01-27] MEDS: LISINOPRIL 20 MG TABLET PO SCH (08:38)
[2019-01-27] MEDS ORDERED: MELOXICAM 7.5 MG TABLET PO SCH (09:00)
[2019-01-27] MEDS: CALCIUM CARBONATE 500 MG TAB.CHEW PO PRN (09:30)
[2019-01-27] MEDS: IV NORMAL SALINE 1000ML BAG 1,000 ML IV SCH (10:59)
[2019-01-27] MEDS ORDERED: BISACODYL 10 MG SUPP.RECT. PR PRN (16:00)
[2019-01-27] MEDS ORDERED: ACETAMINOPHEN 500 MG TABLET PO PRN (16:00)
[2019-01-27 18:20] VITALS: BP 132/63
--- NOTE | 2019-01-27 18:35 | PDOC ---
PROGRESS NOTES Subjective Subjective Pain controlled. No major complaints. Objective Vital Signs Vital Signs Date Time Temp Pulse Resp B/P (MAP) Pulse Ox O2 Delivery O2 Flow Rate FiO2 01/27/19 18:20 98.0 73 18 132/63 (86) 98 Room Air 98.0 01/26/19 12:35 10 Physical Exam GIFTY dressing intact. Pain catheter and drain have been removed. Calf soft and nontender. Good AROM of ankle. Minimal erythema/warmth. Labs Laboratory Tests Test 01/27/19 04:05 White Blood Count 12.2 x10^3/uL (4.0-11.0) Red Blood Count 4.00 x10^6/uL (3.50-5.40) Hemoglobin 8.9 g/dL (12.0-15.5) Hematocrit 28.8 % (36.0-47.0) Mean Corpuscular Volume 72 fL (79-100) Mean Corpuscular Hemoglobin 22 pg (25-35) Mean Corpuscular Hemoglobin Concent 31 g/dL (31-37) Red Cell Distribution Width 18.3 % (11.5-14.5) Platelet Count 171 x10^3/uL (140-400) Laboratory Tests Test 01/27/19 04:05 White Blood Count 12.2 x10^3/uL (4.0-11.0) Red Blood Count 4.00 x10^6/uL (3.50-5.40) Hemoglobin 8.9 g/dL (12.0-15.5) Hematocrit 28.8 % (36.0-47.0) Mean Corpuscular Volume 72 fL (79-100) Mean Corpuscular Hemoglobin 22 pg (25-35) Mean Corpuscular Hemoglobin Concent 31 g/dL (31-37) Red Cell Distribution Width 18.3 % (11.5-14.5) Platelet Count 171 x10^3/uL (140-400) Imaging Postoperative x-rays and report reviewed by me and show satisfactory alignment and no apparent complications. Assessment Assessment POD 1 TKA Plan Plan of Care Continue POC ABRIL DIXON MD Jan 27, 2019 18:35
[2019-01-27] MEDS: HYDROcodon/APAP 7.5/325MG ORAL 15 ML SOLUTION PO PRN (19:27)
[2019-01-27] MEDS: ATORVASTATIN CALCIUM 40 MG TABLET. PO SCH (21:02)
[2019-01-27] MEDS: APIXABAN 5 MG TABLET. PO SCH (21:02)
[2019-01-28] MEDS: HYDROcodon/APAP 7.5/325MG ORAL 15 ML SOLUTION PO PRN ×6 (01:37→20:57)
[2019-01-28 05:32] LABS: HEMATOCRIT 27.8 % (36.0-47.0); HEMOGLOBIN 8.7 g/dL (12.0-15.5)
[2019-01-28 06:00] VITALS: BP 106/57
[2019-01-28 06:06] LABS: CREATININE 0.8 mg/dL (0.6-1.0); GFR 69.9
--- NOTE | 2019-01-28 06:36 | NUR ---
MOM given last noc w/ no results yet. Taking Lortab elixir w/ good results. Has ambulated in the hallway x 2.
[2019-01-28] MEDS: PANTOPRAZOLE 40 MG TABLET.DR. PO SCH ×2 (07:09→07:59)
[2019-01-28] MEDS: ASPIRIN ENTERIC COATED 81 MG TABLET.DR. PO SCH (07:56)
[2019-01-28] MEDS: MULTIVITAMIN with MINERAL TABLET. PO SCH (07:56)
[2019-01-28] MEDS: CHOLECALCIFEROL (VITAMIN D3) 5,000 UNIT CAPSULE PO SCH (07:56)
[2019-01-28] MEDS: LUBIPROSTONE 24 MCG CAPSULE PO SCH (07:56)
[2019-01-28] MEDS: LACTOBACILLUS RHAMNOSUS GG 1 CAPSULE. PO SCH (07:59)
[2019-01-28] MEDS: APIXABAN 5 MG TABLET. PO SCH ×2 (07:59→20:56)
[2019-01-28] MEDS: SENNOSIDES/DOCUSATE 8.6/50MG TABLET. PO SCH (07:59)
[2019-01-28] MEDS: LISINOPRIL 20 MG TABLET PO SCH (08:03)
[2019-01-28] MEDS: METOPROLOL SUCC 24HR ER 50 MG TAB.ER.24H. PO SCH (08:04)
[2019-01-28] MEDS ORDERED: KETOROLAC 30 MG/ML VIAL. IVP ONE (09:00)
--- NOTE | 2019-01-28 09:26 | NUR ---
Patient is refusing her IV toradol at this time. States she does not know why she needs more medicine for pain/inflammation. Education given on what the medication is used for and why it was ordered. Patient stated she felt nauseated and DID NOT want anything else. Told the patient is was ordered to be given IV incase she was nauseated and she still refused. Will continue to monitor.
--- NOTE | 2019-01-28 13:00 | PDOC ---
ORTHO PROGRESS NOTES Subjective LEFT knee pain increased, patient reports rough night with pain. Tells me she accidentally pulled her drain out yesterday. Tearful. Post-op Day: 2 Procedure LEFT knee TKA Vitals Vital Signs Date Time Temp Pulse Resp B/P (MAP) Pulse Ox O2 Delivery O2 Flow Rate FiO2 01/28/19 12:05 95 Room Air 01/28/19 08:04 78 157/81 01/28/19 07:09 20 01/28/19 06:00 97.9 97.9 Labs Laboratory Tests Test 01/27/19 04:05 01/28/19 05:01 White Blood Count 12.2 x10^3/uL (4.0-11.0) Red Blood Count 4.00 x10^6/uL (3.50-5.40) Hemoglobin 8.9 g/dL (12.0-15.5) 8.7 g/dL (12.0-15.5) Hematocrit 28.8 % (36.0-47.0) 27.8 % (36.0-47.0) Mean Corpuscular Volume 72 fL (79-100) Mean Corpuscular Hemoglobin 22 pg (25-35) Mean Corpuscular Hemoglobin Concent 31 g/dL (31-37) 31 g/dL (31-37) Red Cell Distribution Width 18.3 % (11.5-14.5) Platelet Count 171 x10^3/uL (140-400) Creatinine 0.8 mg/dL (0.6-1.0) Estimated GFR (Cockcroft-Gault) 69.9 Laboratory Tests Test 01/28/19 05:01 Hemoglobin 8.7 g/dL (12.0-15.5) Hematocrit 27.8 % (36.0-47.0) Mean Corpuscular Hemoglobin Concent 31 g/dL (31-37) Creatinine 0.8 mg/dL (0.6-1.0) Estimated GFR (Cockcroft-Gault) 69.9 Notes Patient sitting, finished eating. Tearful, indicates no change in her knee since yesterday but continued pain. States no pain walking, just sitting or at rest. Breathing comfortably, no calf tenderness bilaterally, minimal knee tenderness. Dressing appropriate, not saturated or leaking. Neg Nino's bilaterally. A&O x 3. Problems: (1) S/P total knee arthroplasty (2) Aftercare following left knee joint replacement surgery Assessment and Plan POD 2 1 S/P L TKA motor and sensation intact distally dressing dry and intact IAC not patent PT/OT today Problem Qualifiers (1) S/P total knee arthroplasty: Laterality: left Qualified Codes: Z96.652 - Presence of left artificial knee joint RYAN WALLER Jr. PAC Jan 28, 2019 12:59 pm
--- NOTE | 2019-01-28 16:06 | PATHOLOGY ---
[facility] Accession Number: [id number] . 01 Material submitted: . knee - LEFT KNEE BONE AND TISSUE. Modifiers: left . 01 Clinical history: . None provided . 02 Diagnosis: "Left knee bone and tissue", removal: - Degenerative osteoarthritis. 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 02 Electronically signed: . Chandu Encarnacion MD, Pathologist NPI- [id number] . 01 Gross description: . Received in formalin labeled "Peg Lu, left knee bone and tissue," are multiple segments of bone, including tibial plateau, measuring 13.8 x 10.3 x 2.3 cm in aggregate dimensions. Soft tissue and meniscus are present. The specimen displays focal eburnation of the articular surfaces. 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 (DAC; 01/27/2019) XDC/XDC 01/27/2019 0757 Local . 02 Pathologist provided ICD-10: M17.12 . 02 CPT . 142549, [id number] Specimen Comment: A courtesy copy of this report has been sent to [phone] Specimen Comment: Report sent to Performed at: 01 [facility] [address], [place], [place] [id number] MD Jimmy Neville MD Phone: [phone] Performed at: 02 [facility] [address] [place], [place] [id number] MD Supa Arriola MD Phone: [phone]
[2019-01-28 18:28] VITALS: BP 129/50
[2019-01-28] MEDS: ATORVASTATIN CALCIUM 40 MG TABLET. PO SCH (20:56)
[2019-01-29] MEDS: PANTOPRAZOLE 40 MG TABLET.DR. PO SCH (05:55)
[2019-01-29] MEDS: HYDROcodon/APAP 7.5/325MG ORAL 15 ML SOLUTION PO PRN ×3 (05:56→14:15)
[2019-01-29 06:03] VITALS: BP 144/77
[2019-01-29 07:08] LABS: HEMATOCRIT 31.1 % (36.0-47.0); HEMOGLOBIN 9.7 g/dL (12.0-15.5)
[2019-01-29] MEDS: APIXABAN 5 MG TABLET. PO SCH (08:09)
[2019-01-29] MEDS: METOPROLOL SUCC 24HR ER 50 MG TAB.ER.24H. PO SCH (08:09)
[2019-01-29] MEDS: SENNOSIDES/DOCUSATE 8.6/50MG TABLET. PO SCH (08:10)
[2019-01-29] MEDS: ASPIRIN ENTERIC COATED 81 MG TABLET.DR. PO SCH (08:10)
[2019-01-29] MEDS: CHOLECALCIFEROL (VITAMIN D3) 5,000 UNIT CAPSULE PO SCH (08:10)
[2019-01-29] MEDS: LACTOBACILLUS RHAMNOSUS GG 1 CAPSULE. PO SCH (08:10)
[2019-01-29] MEDS: LISINOPRIL 20 MG TABLET PO SCH (08:10)
[2019-01-29] MEDS: MULTIVITAMIN with MINERAL TABLET. PO SCH (08:10)
[2019-01-29 08:11] VITALS: BP 144/77
[2019-01-29] MEDS: LUBIPROSTONE 24 MCG CAPSULE PO SCH (08:11)
--- NOTE | 2019-01-29 16:37 | PDOC ---
PROGRESS NOTES Subjective Subjective No complaints. Planning on discharge today to home. Objective Vital Signs Vital Signs Date Time Temp Pulse Resp B/P (MAP) Pulse Ox O2 Delivery O2 Flow Rate FiO2 01/29/19 15:15 97 Room Air 01/29/19 10:06 10.0 01/29/19 08:11 81 144/77 01/29/19 06:03 98.8 20 98.8 Physical Exam GIFTY intact and dry. Good AROM ankle. Calf soft and nontender. Minimal warmth or erythema. Labs Laboratory Tests Test 01/28/19 05:01 01/29/19 06:06 Hemoglobin 8.7 g/dL (12.0-15.5) 9.7 g/dL (12.0-15.5) Hematocrit 27.8 % (36.0-47.0) 31.1 % (36.0-47.0) Mean Corpuscular Hemoglobin Concent 31 g/dL (31-37) 31 g/dL (31-37) Creatinine 0.8 mg/dL (0.6-1.0) Estimated GFR (Cockcroft-Gault) 69.9 Laboratory Tests Test 01/29/19 06:06 Hemoglobin 9.7 g/dL (12.0-15.5) Hematocrit 31.1 % (36.0-47.0) Mean Corpuscular Hemoglobin Concent 31 g/dL (31-37) Assessment Assessment POD #3 TKA Plan Plan of Care Discharge planning for today. Continue PT and DVT prophylaxis. F/U 10-14 days in office. ABRIL DIXON MD Jan 29, 2019 16:37
[2019-01-29] MEDS ORDERED: HYDR15SO6 PO (16:42)
--- NOTE | 2019-01-29 16:43 | PDOC3 ---
Discharge Summary Visit Information Date of Admission: Jan 26, 2019 Date of Discharge: Jan 29, 2019 Admitting Diagnosis: osteoarthritis left knee. Aftercare L TKA Brief Hospital Course Allergies Allergies Coded Allergies Type Severity Reaction Last Updated Verified adhesive tape Allergy Severe BANDAIDS - TEARS OFF SKIN 01/26/19 Yes adhesive Adverse Reaction Severe 01/26/19 Yes amoxicillin Adverse Reaction Intermediate Nausea and Vomiting 01/26/19 Yes ciprofloxacin Adverse Reaction Intermediate Nausea 01/26/19 Yes codeine Adverse Reaction Intermediate Nausea 01/26/19 Yes sulfamethoxazole Adverse Reaction Intermediate Nausea 01/26/19 Yes trimethoprim Adverse Reaction Intermediate Nausea 01/26/19 Yes ondansetron Adverse Reaction Mild nausea, vomiting 01/26/19 Yes promethazine Adverse Reaction Mild nausea, vomiting 01/26/19 Yes Vital Signs Vital Signs Date Time Temp Pulse Resp B/P (MAP) Pulse Ox O2 Delivery O2 Flow Rate FiO2 01/29/19 15:15 97 Room Air 01/29/19 10:06 10.0 01/29/19 08:11 81 144/77 01/29/19 06:03 98.8 20 98.8 Lab Results Laboratory Tests Test 01/28/19 05:01 01/29/19 06:06 Hemoglobin 8.7 g/dL (12.0-15.5) 9.7 g/dL (12.0-15.5) Hematocrit 27.8 % (36.0-47.0) 31.1 % (36.0-47.0) Mean Corpuscular Hemoglobin Concent 31 g/dL (31-37) 31 g/dL (31-37) Creatinine 0.8 mg/dL (0.6-1.0) Estimated GFR (Cockcroft-Gault) 69.9 Laboratory Tests Test 01/29/19 06:06 Hemoglobin 9.7 g/dL (12.0-15.5) Hematocrit 31.1 % (36.0-47.0) Mean Corpuscular Hemoglobin Concent 31 g/dL (31-37) Brief Hospital Course 73 year old who presented with knee osteoarthritis, for elective total knee arthroplasty. The patient underwent total knee arthroplasty under general anesthesia the day of admission. Perioperative antibiotics and DVT prophylaxis were used. Postoperatively physical therapy and case management were consulted. The patient progressed and is stable for discharge. Discharge Information Condition at Discharge: Stable Disposition/Orders: D/C to Home w/ HH Scheduled Apixaban (Eliquis), 5 MG PO BID Aspirin (Aspir-Low), 81 MG PO DAILY, (Reported) Cholecalciferol (Vitamin D3) (Vitamin D3), 5,000 UNIT PO DAILY, (Reported) Dexlansoprazole (Dexilant), 60 MG PO DAILY, (Reported) Diltiazem HCl (Diltiazem 24Hr Cd), 240 MG PO DAILY, (Reported) Lactobacillus Acidophilus (Probiotic), 1 EACH PO DAILY, (Reported) Lubiprostone (Amitiza), 8 MCG PO DAILY, (Reported) Metoprolol Succinate (Toprol XL), 25 MG PO DAILY, (Reported) Rosuvastatin Calcium (Crestor), 20 MG PO HS, (Reported) [domperidone], 10 MG PO BID, (Reported) Scheduled PRN Benazepril Hcl (Benazepril Hcl), 20 MG PO DAILY PRN for HTN, (Reported) Hydrocodone Bit/Acetaminophen (Hydrocodone-Apap 7.5-325/15 Soln ), 30 ML PO PRN Q4HRS PRN for PAIN Patient Instructions Patient Instructions Continue to weight bearing as tolerated with walker. Keep GIFTY dressing intact and dry. Cut off GIFTY "tail" and throw away battery pack on the 7th day after surgery. Tape down GIFTY tail Leave GIFTY dressing intact otherwise. Follow up with Dr. Vazquez's office in 10-14 days. Call for appointment unless already scheduled. Continue enteric coated aspirin 325 mg by mouth twice a day for 30 days to prevent blood clots. ABRIL VAZQUEZ MD Jan 29, 2019 16:43
--- NOTE | 2019-01-29 16:46 | SNU/HH DC ---
DISCHARGE WITH HOME HEALTH DISCHARGE INFORMATION: Discharge Date: Jan 29, 2019 Final Diagnosis: osteoarthritis left knee. aftercare after left total knee arthroplasty Condition on Discharge: Stable HOME HEALTH: Face to Face: I certify this patient is under my care and that I, or a nurse practitioner or physician's office assistant working with me, had a face to face encounter that meets the physician face to face encounter requirements with this patient on 01/29/2019 Medical Complications: S/P Joint Replacement RN For Eval/Treatment: No Physical Therapy For: Evalulation/Treatment Occupational Therapy For: Evaluation/Treatment Pt Meets Homebound Status: Poor coordination w/ amb., Limited distance walking POST DISCHARGE ORDERS: Activity Instructions for Disc: Activity as tolerated, Avoid exertion Weight Bearing Status after Di: Full weight bearing, As tolerated Bathing Instructions: Shower-keep dressing dry, No Tub Bath until see Wound/Incision Care: Ice to area for comfort, Keep wound/cast CDI, Do not change dressing Other wound/incision instructi: DO NOT change GIFTY dressing. It is to remain in place for two weeks. FOLLOW-UP: Follow Up With: Dr Vazquez in 2 weeks Additional Instructions: Continue to weight bearing as tolerated with walker. Keep GIFTY dressing intact and dry. Cut off GIFTY "tail" and throw away battery pack on the 7th day after surgery. Tape down GIFTY tail Leave GIFTY dressing intact otherwise. Follow up with Dr. Vazquez's office in 10-14 days. Call for appointment unless already scheduled. TREATMENT/EQUIPMENT ORDERS: Adaptive Equipment Issued: None, Front wheeled walker CERTIFICATION STATEMENT: Certification Statement: Certification Statement: Based on the above finding, I certify that this patient is confined to the home and needs intermittent fci care, physical therapy and/or speech therapy, or continues to need occupational therapy.~ This patient is under my care, and I have initiated the establishment of the plan of care.~ This patient will be followed by myself or a community physician who will periodically review the plan of care. Home Meds Active Scripts Hydrocodone Bit/Acetaminophen (HYDROCODONE-APAP 7.5-325/15 SOLN ) 15 Ml Solution, 30 ML PO PRN Q4HRS PRN for PAIN for 14 Days, #946 ML Take 15-30 mL by mouth every 4 hours as needed for pain. Prov:ABRIL VAZQUEZ MD 01/29/19 Apixaban (ELIQUIS) 5 Mg Tablet, 5 MG PO BID for Atrial fibrillation for 30 Days, #60 TAB 11 Refills Prov:MELVA ZUNIGA MD 02/01/18 Reported Medications Lubiprostone (AMITIZA) 8 Mcg Capsule, 8 MCG PO DAILY for treat constipation, CAP 01/06/19 Metoprolol Succinate (Toprol XL) 50 Mg Tab.er.24h, 25 MG PO DAILY for FOR HYPERTENSION, TAB.SR 01/06/19 Lactobacillus Acidophilus (PROBIOTIC) 1 Each Capsule, 1 EACH PO DAILY for colon health, CAP 01/06/19 [domperidone] No Conflict Check, 10 MG PO BID for nausea/stomach upset 01/06/19 Diltiazem HCl (Diltiazem 24Hr Cd) 240 Mg Cap.er.24h, 240 MG PO DAILY for blood pressure control, CAP.SR 01/06/19 Cholecalciferol (Vitamin D3) (VITAMIN D3) 5,000 Unit Tablet, 5000 UNIT PO DAILY for low vit D level, TAB 01/30/18 Aspirin (ASPIR-LOW) 81 Mg Tablet.dr, 81 MG PO DAILY for TIA 01/26/18 Benazepril Hcl (BENAZEPRIL HCL) 20 Mg Tablet, 20 MG PO DAILY PRN for HTN 01/26/18 Rosuvastatin Calcium (CRESTOR) 40 Mg Tablet, 20 MG PO HS for HLD 04/27/15 Dexlansoprazole (DEXILANT) 60 Mg Cap.mp, 60 MG PO DAILY for Gerd 04/27/15 ABRIL VAZQUEZ MD Jan 29, 2019 16:46
--- NOTE | 2019-01-29 17:30 | NUR ---
Patient discharged with her around 1710. IV discontinued. Discharge instructions given by this nurse, therapy, and her doctor prior to dismissal. GIFTY dressing instructions addressed prior to discharge. She was instructed to take only 81mg aspirin along with her eliquis and not to increase it to the 325mg. Script given for lortab solution to patient. No concerns noted upon discharge.
== END 2019-01-29 17:40 | disposition home health service (06) | DRG 470 ==
LOC: OPSVCIP 08:20 → 4 SOUTHEST 13:30
PROVIDERS: ADMIT Orthopaedic Surgery; ATTEND Orthopaedic Surgery
PROC: 8E0Y0CZ Robotic Assisted Procedure of Lower Extremity, Open Approach (ICD-10-PCS; 2019-01-26)
PROC: 0SRD0J9 Replacement of Left Knee Joint with Synthetic Substitute, Cemented, Open Approach (ICD-10-PCS; principal; 2019-01-26 10:00)
DX: M17.0 Bilateral primary osteoarthritis of knee (principal); E78.5 Hyperlipidemia, unspecified; G89.29 Other chronic pain; I10 Essential (primary) hypertension; I48.91 Unspecified atrial fibrillation; Z79.82 Long term (current) use of aspirin; Z85.3 Personal history of malignant neoplasm of breast; Z86.73 Personal history of transient ischemic attack (TIA), and cerebral infarction without residual deficits; Z90.711 Acquired absence of uterus with remaining cervical stump; F41.9 Anxiety disorder, unspecified; K21.9 Gastro-esophageal reflux disease without esophagitis; K57.90 Diverticulosis of intestine, part unspecified, without perforation or abscess without bleeding; Z88.2 Allergy status to sulfonamides; Z88.8 Allergy status to other drugs, medicaments and biological substances
CPT/HCPCS: 36415; 73560; 82565; 85014; 85018; 85027; 86850; 86900; 86901; 88304; 88311; A7015; C1713; J0171; J1100; J1200; J1885; J2001; J2370; J2405; J2704; J2710; J2795; J3010; J3260; J3370; J3490; J7030; J7120; Q0164; 97116; 97150; 97530; 97535; A4461; C1769; G0378

== ENCOUNTER → 2019-11-15 | Outpatient (CLI) | payer BC, MEDICARE ==
[~2019-11-15] MED LIST changes: -ACETAMINOPHEN 500 MG TABLET PO PRN; +BARIUM SULFATE 340 GM SUSPENSION. PO ONE; +BARIUM SULFATE 60% 355 ML SUSP PO ONE; -CLINDAMYCIN 900MG PREMIX 50 ML IV PRN; +HYDR15SO6 PO; -IV RINGERS,LACTATED 1000ML 1,000 ML IV SCH; -KETOROLAC 30MG VIAL 30 MG, ROPIVacaine 0.5% PF 60 ML, EPINEPHrine 0.5 MG in IV NORMAL S... INJ ONE; -SCOPOLAMINE 1.5MG PATCH. TD SCH; -TOBRAMYCIN POWDER 1.2 GM VIAL. ONE; -TRANEXAMIC ACID 1,000 MG in IV NS 50ML -- 1ST BAG INJ ONE; -TRANEXAMIC ACID 1,000 MG in IV NS 50ML -- 2ND BAG INJ ONE; -VANCOMYCIN 1 GM VIAL. ONE; -fentaNYL PF VIAL 100 MCG/2 ML VIAL IV PRN
--- NOTE | 2019-11-15 18:40 | KCIC ---
Double contrast upper GI study 11/15/2019 CLINICAL HISTORY: Abdominal pain. Heartburn. TECHNIQUE: A double contrast upper GI study was performed under fluoroscopic control. The total fluoroscopic time is 2 minutes 33 seconds. 14 digital spot radiographs were obtained. FINDINGS: The mucosal pattern of the esophagus, stomach and duodenum is within normal limits. No area of ulceration is seen. Tertiary contractions of the esophagus are seen consistent with mild esophageal dysmotility. There is a small sliding hiatal hernia. Severe gastroesophageal reflux to the upper thoracic esophagus is noted. IMPRESSION: 1. Mild esophageal dysmotility. 2. Small hiatal hernia. Severe gastroesophageal reflux. Electronically signed by: Manuelito Pepper MD (11/15/2019 6:37 PM) [id number]
== END | disposition home or self-care (01) ==
LOC: KCIC 07:52
PROVIDERS: ATTEND Internal Medicine Gastroenterology
DX: K44.9 Diaphragmatic hernia without obstruction or gangrene (principal); K21.9 Gastro-esophageal reflux disease without esophagitis; R12 Heartburn
CPT/HCPCS: 74240

== ENCOUNTER 2019-11-27 14:24 | Emergency (ER) | payer BC, MEDICARE ==
[~2019-11-27] VITALS: Ht 162.6 cm; Wt 75.0 kg
[~2019-11-27 14:24] MED LIST changes: +AMLO-186 PO; -AMLO5TAB10 PO; -BARIUM SULFATE 340 GM SUSPENSION. PO ONE; -BARIUM SULFATE 60% 355 ML SUSP PO ONE
[2019-11-27] MEDS ORDERED: IBUPROFEN 200 MG TABLET. PO ONE (15:00)
--- NOTE | 2019-11-27 15:02 | PHYS DOC ---
Past Medical History Past Medical History: Cancer, CVA, Diverticulitis, Diverticulosis, GERD, High Cholesterol, Hypertension, Other Additional Past Medical Histor: BREAST & EAR CA, AORTIC STENOSIS Past Surgical History: Appendectomy, Cancer Surgery, Cholecystectomy, Hysterectomy, Other Additional Past Surgical Histo: BREAST LUMPECTOMY, EAR CA REMOVAL, EXP LAP, LEFT KNEE AND LEFT FOOT REPAIR Smoking Status: Never Smoker Alcohol Use: None Drug Use: None General Adult EDM: Chief Complaint: LOWER EXT PAIN HPI: HPI: History obtained with the patient and daughter. Patient is a 74-year-old female past medical history notable for atrial fibrillation, aortic stenosis, high cholesterol, chronic knee pain who presents with chief complaint of right knee pain. Patient states she has been evaluated to have her right knee replaced. She notes a history of left knee replacement. She states her knee has been hurting since yesterday. States the pain is aching in nature. States the pain seems to start in her knee and radiates down the anterior portion of her right lower leg and posterior portion. She also notes the pain seems to radiate slightly upwards to her thigh. Nuys any increased swelling. Denies any increased warmth. Is able to ambulate although it makes the pain more sign ificant. Did try Tylenol at home with minimal relief. Denies any falls or trauma. States she was on her feet all day yesterday working in the yard, but states this is not unusual for her. Denies history of blood clots. Takes Eliquis daily for atrial fibrillation. Has not missed any doses. No other complaints. Review of Systems: Review of Systems: Constitutional: Denies fever or chills. [] Eyes: Denies change in visual acuity. [] HENT: Denies nasal congestion or sore throat. [] Respiratory: Denies cough or shortness of breath. [] Cardiovascular: Denies chest pain or edema. [] GI: Denies abdominal pain, nausea, vomiting, bloody stools or diarrhea. [] : Denies dysuria. [] Musculoskeletal: Positive for knee pain Integument: Denies rash. [] Neurologic: Denies headache, focal weakness or sensory changes. [] Endocrine: Denies polyuria or polydipsia. [] Lymphatic: Denies swollen glands. [] Psychiatric: Denies depression or anxiety. [] Heart Score: Risk Factors: Risk Factors: DM, Current or recent (<one month) smoker, HTN, HLP, family history of CAD, obesity. Risk Scores: Score 0 - 3: 2.5% MACE over next 6 weeks - Discharge Home Score 4 - 6: 20.3% MACE over next 6 weeks - Admit for Clinical Observation Score 7 - 10: 72.7% MACE over next 6 weeks - Early Invasive Strategies Allergies: Allergies: Allergies Coded Allergies Type Severity Reaction Last Updated Verified adhesive tape Allergy Severe BANDAIDS - TEARS OFF SKIN 01/26/19 Yes adhesive Adverse Reaction Severe 01/26/19 Yes amoxicillin Adverse Reaction Intermediate Nausea and Vomiting 01/26/19 Yes ciprofloxacin Adverse Reaction Intermediate Nausea 01/26/19 Yes codeine Adverse Reaction Intermediate Nausea 01/26/19 Yes sulfamethoxazole Adverse Reaction Intermediate Nausea 01/26/19 Yes trimethoprim Adverse Reaction Intermediate Nausea 01/26/19 Yes ondansetron Adverse Reaction Mild nausea, vomiting 01/26/19 Yes promethazine Adverse Reaction Mild nausea, vomiting 01/26/19 Yes Physical Exam: PE: Constitutional: Well developed, well nourished, no acute distress, non-toxic appearance. [] HENT: Normocephalic, atraumatic, bilateral external ears normal, oropharynx moist, no oral exudates, nose normal. [] Eyes: PERRLA, EOMI, conjunctiva normal, no discharge. [] Neck: Normal range of motion, no tenderness, supple, no stridor. [] Cardiovascular:Heart rate regular rhythm, no murmur. +2/4 DP pulses bilaterally. [] Lungs & Thorax: Bilateral breath sounds clear to auscultation [] Abdomen: soft, no tenderness, no masses, no pulsatile masses. [] Skin: Warm, dry, no erythema, no rash. [] Back: No tenderness, no CVA tenderness. [] Extremities: R Knee Erythema not present. Warmth not present. Effusion not present. Anterior drawer is intact. Posterior drawer is intact. Varus testing is intact. Valgus testing is intact. Knee extension is intact. DNVI (DP pulse 2+, plantar and dorsiflexion intact, light touch intact. Compartments soft. Neurologic: Alert and oriented X 3, normal motor function, normal sensory function, no focal deficits noted. [] Psychologic: Affect normal, judgement normal, mood normal. [] Current Patient Data: Labs: Laboratory Tests Test 11/27/19 15:31 Creatine Kinase 123 U/L Current Medications Medications (Trade) Dose Ordered Sig/Syd[place] Route PRN Reason Start Time Stop Time Status Last Admin Dose Admin Ibuprofen (Motrin) 600 mg 1X ONCE PO 11/27/19 15:00 11/27/19 15:01 DC 11/27/19 15:45 Vital Signs: Vital Signs Date Time Temp Pulse Resp B/P (MAP) Pulse Ox O2 Delivery O2 Flow Rate FiO2 11/27/19 14:30 98.4 72 16 180/79 (112) 100 Room Air 98.4 EKG: EKG: EKG consistent with sinus rhythm. Ventricular rate of 67 bpm. Left axis noted. Intervals normal. No acute ischemic changes noted. [] Radiology/Procedures: Radiology/Procedures: [address] [address] IMAGING REPORT Signed PATIENT: RADHA BATES ACCOUNT: [id number] : 1945 LOCATION: ER AGE: 74 SEX: F EXAM STATUS: REG ER ORD. PHYSICIAN: TRISHA ALLEN DO REASON: R knee pain PROCEDURE: KNEE RIGHT 3V Exam: Right knee 3 views INDICATION: Right knee pain TECHNIQUE: Frontal, lateral and oblique views of the right knee Comparisons: None FINDINGS: Bone mineralization is normal. No acute or healed fractures. Small suprapatellar effusion. Joint spaces are well-maintained. IMPRESSION: Small suprapatellar effusion without underlying osseous abnormality identified. Electronically signed by: Lidia Villarreal MD (11/27/2019 4:20 PM) [id number] DICTATED and SIGNED BY: LIDIA VILLARREAL MD DATE: 11/27/[address] [address] IMAGING REPORT Signed PATIENT: RADHA BATES ACCOUNT: [id number] : 1945 LOCATION: ER AGE: 74 SEX: F EXAM STATUS: REG ER ORD. PHYSICIAN: TRISHA ALLEN DO REASON: RLE pain PROCEDURE: VENOUS LOWER EXTREMITY RIGHT Exam: VENOUS LOWER EXTREMITY RIGHT Indication: Reason: RLE pain / Spl. Instructions: / History: Technique: Color-flow and pulsed wave duplex ultrasound with compression of venous structures of the right lower extremity. Comparison: None Available. Findings: Duplex ultrasound with compression of the deep venous structures of the right lower extremity from the common femoral vein through the popliteal vein is negative for DVT. The posterior tibial and peroneal veins are segmentally visualized and patent where seen. Normal venous waveforms and augmentation are noted throughout. Impression: No evidence for DVT in the right lower extremity. Electronically signed by: Paola Pierre MD (11/27/2019 4:01 PM) [id number] DICTATED and SIGNED BY: PAOLA PIERRE MD DATE: 11/27/191600 [] Course & Med Decision Making: Course & Med Decision Making Pertinent Labs and Imaging studies reviewed. (See chart for details) [] Patient is a very pleasant 74-year-old female presents with chief complaint of acute on chronic right knee pain that began yesterday. Denies trauma or injury. Exam overall reassuring. Lower extremity Doppler negative for DVT. Plain film imaging reveals no acute osseous abnormality. CK not elevated. Plain film imaging did reveal a slight suprapatellar effusion. No signs of clinical septic arthritis. She may be experiencing some bursitis. Overall her pain was well controlled with ibuprofen. Patient is requesting discharge home. I do feel this is renal. She does have follow-up with orthopedic surgery in 2 days. Return precautions discussed and understood. Stable for discharge home. She was able to ambulate with the assistance of a cane prior to discharge. Dragon Disclaimer: Morales Disclaimer: This electronic medical record was generated, in whole or in part, using a voice recognition dictation system. Departure Departure Impression: Primary Impression: Right knee pain Qualified Codes: M25.561 - Pain in right knee; G89.29 - Other chronic pain Disposition: 01 DC HOME SELF CARE/HOMELESS Condition: STABLE Referrals: ADÁN MCMAHON APRN (PCP) ABRIL DIXON MD Patient Instructions: Knee Pain Additional Instructions: Please follow-up with your orthopedic surgeon in the next 2 days. Scripts Ibuprofen (IBUPROFEN) 600 Mg Tablet 600 MG PO PRN Q6HRS PRN for PAIN, #12 TAB take with food or milk Prov: TRISHA ALLEN DO 11/27/19 TRISHA ALLEN DO Nov 27, 2019 15:02
--- NOTE | 2019-11-27 16:04 | RAD ---
Exam: VENOUS LOWER EXTREMITY RIGHT Indication: Reason: RLE pain / Spl. Instructions: / History: Technique: Color-flow and pulsed wave duplex ultrasound with compression of venous structures of the right lower extremity. Comparison: None Available. Findings: Duplex ultrasound with compression of the deep venous structures of the right lower extremity from the common femoral vein through the popliteal vein is negative for DVT. The posterior tibial and peroneal veins are segmentally visualized and patent where seen. Normal venous waveforms and augmentation are noted throughout. Impression: No evidence for DVT in the right lower extremity. Electronically signed by: Avery Pierre MD (11/27/2019 4:01 PM) [id number]
--- NOTE | 2019-11-27 16:23 | RAD ---
Exam: Right knee 3 views INDICATION: Right knee pain TECHNIQUE: Frontal, lateral and oblique views of the right knee Comparisons: None FINDINGS: Bone mineralization is normal. No acute or healed fractures. Small suprapatellar effusion. Joint spaces are well-maintained. IMPRESSION: Small suprapatellar effusion without underlying osseous abnormality identified. Electronically signed by: Lidia Machuca MD (11/27/2019 4:20 PM) [id number]
[2019-11-27] MEDS ORDERED: IBUP-1007 PO (16:42)
[2019-11-27 17:02] VITALS: BP 149/67
== END 2019-11-27 17:06 | disposition home or self-care (01) ==
LOC: ER 14:24
DX: G89.29 Other chronic pain (principal); M25.561 Pain in right knee; R60.0 Localized edema; I48.20 Chronic atrial fibrillation, unspecified; E78.00 Pure hypercholesterolemia, unspecified; K21.9 Gastro-esophageal reflux disease without esophagitis; I10 Essential (primary) hypertension; Z90.89 Acquired absence of other organs; Z90.710 Acquired absence of both cervix and uterus; Z98.890 Other specified postprocedural states; Z90.49 Acquired absence of other specified parts of digestive tract; Z86.73 Personal history of transient ischemic attack (TIA), and cerebral infarction without residual deficits
CPT/HCPCS: 36415; 73562; 82550; 93971; 99285

== ENCOUNTER → 2020-01-10 | Outpatient (CLI) | payer BC, MEDICARE ==
[~2020-01-10] MED LIST changes: +IBUP-1007 PO
[2020-01-10 11:12] LABS: ALBUMIN 3.5 g/dL (3.4-5.0); C-REACTIVE PROTEIN 1.3 mg/L (0-3.3); CALCIUM 8.9 mg/dL (8.5-10.1); CREATININE 0.7 mg/dL (0.6-1.0); GFR 81.4; POTASSIUM 4.1 mmol/L (3.5-5.1)
[2020-01-10 11:19] LABS: BASO % 1 % (0-3); EOS # 0.1 x10^3/uL (0.0-0.7); EOS % 2 % (0-3); HEMATOCRIT 31.3 % (36.0-47.0); HEMOGLOBIN 9.7 g/dL (12.0-15.5); LYMPH # 1.1 x10^3/uL (1.0-4.8); LYMPH % 14 % (24-48); MEAN CORPUSCULAR HEMOGLOBIN 20 pg (25-35); MEAN CORPUSCULAR HGB CONC 31 g/dL (31-37); MEAN CORPUSCULAR VOLUME 65 fL (79-100); MONO # 0.6 x10^3/uL (0.0-1.1); MONO % 9 % (0-9); NEUT # 5.5 x10^3/uL (1.8-7.7); NEUT % 75 % (31-73); PLATELET COUNT 181 x10^3/uL (140-400); RED BLOOD COUNT 4.79 x10^6/uL (3.50-5.40); RED CELL DISTRIBUTION WIDTH 18.2 % (11.5-14.5); WHITE BLOOD COUNT 7.4 x10^3/uL (4.0-11.0)
--- NOTE | 2020-01-10 11:35 | EKG ---
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
[2020-01-10 11:42] LABS: PROTHROMBIN TIME PATIENT 13.5 SEC (11.7-14.0)
[2020-01-10 13:04] LABS: PLT ESTIMATE ADEQUATE (ADEQUATE)
[2020-01-10 13:05] LABS: ANISOCYTOSIS SLIGHT; HYPOCHROMIA MOD; MICROCYTOSIS MOD; OVALOCYTES PRESENT
--- NOTE | 2020-01-10 16:36 | RAD ---
CHEST PA LATERAL INDICATION: PRE OP KNEE REPLACEMENT 01/30 / Spl. Instructions: / History: . COMPARISON STUDY: None. FINDINGS: Lungs: Normal lung volume. No pulmonary mass or consolidation. The tracheobronchial tree and hilar structures are normal. Pleura: No pleural effusion or pneumothorax. Heart and Mediastinum: The cardiomediastinal silhouette is normal. Atherosclerosis of the thoracic aorta. Bones and Soft Tissues: Degenerative changes of the spine. IMPRESSION: No acute cardiopulmonary process. Electronically signed by: Avery Pierre MD (01/10/2020 4:32 PM) [id number]
[2020-01-11 01:09] LABS: HEMOGLOBIN A1C 5.8 % (4.8-5.6)
== END ==
LOC: SURGPAT 10:06
PROVIDERS: ATTEND Orthopaedic Surgery
DX: Z01.818 Encounter for other preprocedural examination (principal); I35.0 Nonrheumatic aortic (valve) stenosis; I70.0 Atherosclerosis of aorta; M47.819 Spondylosis without myelopathy or radiculopathy, site unspecified
CPT/HCPCS: 36415; 71046; 80048; 82040; 82306; 83036; 85025; 85610; 85730; 86140; 87641; 93005

== ENCOUNTER → 2020-01-12 | Outpatient (CLI) | payer BC, MEDICARE ==
--- NOTE | 2020-01-12 14:26 | CARD ---
MR#: [id number] Date of Study: 01/12/2020 Ordering Physician: CHRISTOPHER MARCELINO, Referring Physician: CHRISTOPHER MARCELINO, Tech: Yancy Whatley RE APPROVED REPORT EXAM: Two-dimensional and M-mode echocardiogram with Doppler and color Doppler. Other Information Quality : GoodHR: 75bpm Rhythm : NSR INDICATION Aortic Stenosis. Hx: Afib, Stroke, HTN, HLP, CA. 2D DIMENSIONS RVDd3.4 (2.9-3.5cm)IVSd1.2 (0.7-1.1cm) Aortic Root(2D)3.3 (2.0-3.7cm)LVDd4.7 (3.9-5.9cm) LVOT Diameter2.1 (1.8-2.4cm)PWd1.2 (0.7-1.1cm) LVDs3.1 (2.5-4.0cm)FS (%) 33.9 % SV64.3 ml Aortic Valve AoV Peak Aubrey.419.1cm/sAoV HQW179.1cm AO Peak GR.70.2mmHgLVOT Peak Aubrey.109.9cm/s AO Mean GR.45mmHgAVA (VMAX)0.88cm2 Mitral Valve MV E Hjrouhcz15.8cm/sMV DECEL TCWK273ex MV A Wvbefqle620.0cm/sE/A Ratio0.7 MV A Evptiwhe600oj Pulmonary Valve PV Peak Aorncdzi148.5cm/s Tricuspid Valve TR P. Btlchdgp875bz/sRAP YFFDLTCQ3unLw TR Peak Gr.08fmJsDWNX47syRa Pulmonary Vein S1 Jfogzres87.9cm/sD2 Hnczaksq57.4cm/s LEFT VENTRICLE The left ventricle is normal size. There is mild concentric left ventricular hypertrophy. The left ve ntricular systolic function is normal and the ejection fraction is within normal range. LV ejection f raction of 55 to 60%. There is normal LV segmental wall motion. Transmitral Doppler flow pattern is G rade I-abnormal relaxation pattern. RIGHT VENTRICLE The right ventricle is normal size. The right ventricular systolic function is normal. ATRIA The left atrium is moderately dilated. The right atrium size is normal. The interatrial septum is int act with no evidence for an atrial septal defect or patent foramen ovale as noted on 2-D or Doppler i jaye. AORTIC VALVE The aortic valve is heavily calcified. Trace to mild aortic regurgitation. There is moderately severe valvular aortic stenosis. Calculated aortic valve area is 0.9 cm2 with maximum pressure gradient of 70mmHg and mean pressure gradient of 45mmHg. MITRAL VALVE The mitral valve is normal in structure. Moderate mitral annular calcification. There is no mitral va lve stenosis. Doppler and Color-flow revealed trace mitral regurgitation. TRICUSPID VALVE The tricuspid valve is normal in structure and function. Trace tricuspid regurgitation. The pulmonary artery systolic pressure is estimated at 20-25 mmHg. PULMONIC VALVE The pulmonary valve is normal in structure and function. Mild pulmonic valvular regurgitation. GREAT VESSELS The aortic root is normal in size. The ascending aorta is normal in size. The IVC is normal in size a nd collapses >50% with inspiration. PERICARDIAL EFFUSION There is no evidence of significant pericardial effusion. Critical Notification Critical Value: No <Conclusion> The left ventricle is normal size. The left ventricular systolic function is normal and the ejection fraction is within normal range. LV ejection fraction of 55 to 60%. There is mild concentric left ventricular hypertrophy. The aortic valve is heavily calcified. Trace to mild aortic regurgitation. There is moderately severe valvular aortic stenosis. Calculated aortic valve area is 0.9 cm2 with maximum pressure gradient of 70mmHg and mean pressure gr adient of 45mmHg. Doppler and Color-flow revealed trace mitral regurgitation. Trace tricuspid regurgitation. The pulmonary artery systolic pressure is estimated at 20-25 mmHg. Signed by : Rubens Pimentel MD Electronically Approved : 01/12/2020 14:26:16
== END ==
LOC: ECHO 09:31
PROVIDERS: ATTEND Internal Medicine Cardiovascular Disease
DX: I08.8 Other rheumatic multiple valve diseases (principal)
CPT/HCPCS: 93306

== ENCOUNTER → 2020-01-27 | Outpatient (CLI) | payer BC, MEDICARE | LOC: LAB 13:14 | PROVIDERS: ATTEND Orthopaedic Surgery | DX: Z01.812 Encounter for preprocedural laboratory examination (principal); Z20.828 Contact with and (suspected) exposure to other viral communicable diseases | CPT/HCPCS: U0003 ==

== ENCOUNTER 2020-01-31 06:09 | Observation (INO) | payer BC, MEDICARE ==
--- NOTE | 2020-01-30 18:32 | PDOC1 ---
History and Physical Date of Admission Date of Admission 01/31/20 Identification/Chief Complaint Chief Complaint right knee osteoarthritis pain Source Source: Chart review, Patient History of Present Illness History of Present Illness 74 year old with right knee osteoarthritis pain. Tried injections and ibuprofen. Had a bad experience with one event at her recovery from left TKA in 01/2019 regarding liquid hydrocodone, and doesn't want liquid hydrocodone again. Past Medical History Cardiovascular: AFIB, HTN Pulmonary: No pertinent hx CENTRAL NERVOUS SYSTEM: TIA GI: Other Heme/Onc: Cancer Hepatobiliary: No pertinent hx Psych: No pertinent hx Rheumatologic: No pertinent hx Infectious disease: No pertinent hx Renal/: No pertinent hx Endocrine: No pertinent hx Past Surgical History Past Surgical History: Appendectomy, Breast Biopsy, Cholecystectomy, Hysterectomy Family History Family History: No Significant Family History: Other Social History Smoke: No ALCOHOL: none Drugs: None Current Medications Current Medications Current Medications Ondansetron HCl (Zofran) 4 mg PRN Q6HRS PRN IV NAUSEA/VOMITING; Start 01/31/20 at 07:00; Stop 02/01/20 at 06:59 Fentanyl Citrate (Fentanyl 2ml Vial) 25 mcg PRN Q5MIN PRN IV MILD PAIN 1-3; Start 01/31/20 at 07:00; Stop 02/01/20 at 06:59 Fentanyl Citrate (Fentanyl 2ml Vial) 50 mcg PRN Q5MIN PRN IV MODERATE TO SEVERE PAIN; Start 01/31/20 at 07:00; Stop 02/01/20 at 06:59 Morphine Sulfate (Morphine Sulfate) 1 mg PRN Q10MIN PRN IV SEVERE PAIN 7-10; Start 01/31/20 at 07:00; Stop 02/01/20 at 06:59 Ringer's Solution 1,000 ml @ 30 mls/hr Q24H IV ; Start 01/31/20 at 07:00; Stop 01/31/20 at 18:59 Lidocaine HCl (Xylocaine-Mpf 1% 2ml Vial) 2 ml PRN 1X PRN ID PRIOR TO IV START; Start 01/31/20 at 07:00; Stop 02/01/20 at 06:59 Hydromorphone HCl (Dilaudid) 0.5 mg PRN Q10MIN PRN IV SEV PAIN, Second choice; Start 01/31/20 at 07:00; Stop 02/01/20 at 06:59 Prochlorperazine Edisylate (Compazine) 5 mg PACU PRN PRN IV NAUSEA, MRX1; Start 01/31/20 at 07:00; Stop 02/01/20 at 06:59 Apixaban (Eliquis) 5 mg BID PO ; Start 01/31/20 at 21:00 Clindamycin Phosphate 50 ml @ 100 mls/hr 1X PREOP PRN IV PRIOR TO PROCEDURE; Start 01/31/20 at 06:00; Stop 01/31/20 at 18:00 Morphine Sulfate 5 mg/Ketorolac Tromethamine 30 mg/Ropivacaine 60 ml/Epinephrine HCl 0.5 mg/Sodium Chloride 100 ml @ 100 mls/hr 1X PERIOP ONCE INT ART ; Start 01/31/20 at 06:00; Stop 01/31/20 at 06:59 Tranexamic Acid 1000 mg/Sodium Chloride 60 ml @ 60 mls/hr 1X PERIOP ONCE INJ ; Start 01/31/20 at 06:00; Stop 01/31/20 at 06:59 Tranexamic Acid 1000 mg/Sodium Chloride 60 ml @ 60 mls/hr 1X PERIOP ONCE INJ ; Start 01/31/20 at 08:00; Stop 01/31/20 at 08:59 Acetaminophen (Tylenol) 1,000 mg 1X PREOP PRN PO PRIOR TO PROCEDURE; Start 01/31/20 at 06:00; Stop 01/31/20 at 18:00 Celecoxib (CeleBREX) 400 mg 1X PREOP PRN PO PRIOR TO SURGERU; Start 01/31/20 at 08:00 Active Scripts Active Ibuprofen 600 Mg Tablet 600 Mg PO PRN Q6HRS PRN take with food or milk Eliquis (Apixaban) 5 Mg Tablet 5 Mg PO BID 30 Days Reported Amitiza (Lubiprostone) 8 Mcg Capsule 8 Mcg PO DAILY Toprol XL (Metoprolol Succinate) 50 Mg Tab.er.24h 25 Mg PO DAILY Probiotic (Lactobacillus Acidophilus) 1 Each Capsule 1 Each PO DAILY [domperidone] 10 Mg PO BID Diltiazem 24Hr Cd (Diltiazem HCl) 240 Mg Cap.er.24h 240 Mg PO DAILY Vitamin D3 (Cholecalciferol (Vitamin D3)) 5,000 Unit Tablet 5,000 Unit PO DAILY Aspir-Low (Aspirin) 81 Mg Tablet.dr 81 Mg PO DAILY Benazepril Hcl 20 Mg Tablet 20 Mg PO DAILY PRN Crestor (Rosuvastatin Calcium) 40 Mg Tablet 20 Mg PO HS Dexilant (Dexlansoprazole) 60 Mg mp 60 Mg PO DAILY Allergies Allergies: Coded Allergies: adhesive tape (Verified Allergy, Severe, BANDAIDS - TEARS OFF SKIN, 01/10/20) hydrocodone (Verified Allergy, Severe, SEVERE DEPRESSION/ IRRITABILITY, 01/10/20) adhesive (Verified Adverse Reaction, Severe, 01/10/20) tears off skin amoxicillin (Verified Adverse Reaction, Intermediate, Nausea and Vomiting, 01/10/20) ciprofloxacin (Verified Adverse Reaction, Intermediate, Nausea, 01/10/20) codeine (Verified Adverse Reaction, Intermediate, Nausea, 01/10/20) sulfamethoxazole (Verified Adverse Reaction, Intermediate, Nausea, 01/10/20) trimethoprim (Verified Adverse Reaction, Intermediate, Nausea, 01/10/20) ondansetron (Verified Adverse Reaction, Mild, nausea, vomiting, 01/10/20) promethazine (Verified Adverse Reaction, Mild, nausea, vomiting, 01/10/20) Physical Exam General: Alert, Cooperative HEENT: Atraumatic Lungs: Normal air movement Heart: RRR Abdomen: Soft Extremities: Other (antalgic gait, slight varus, tender at joint lines, ROM 0- 120) Images Images osteoarthritis VTE Prophylaxis Ordered VTE Prophylaxis Devices: Yes VTE Pharmacological Prophylaxi: Yes Assessment/Plan Assessment/Plan Bone on bone arthritis. We discussed RBA. Right robotic TKA. She agrees and is here for elective surgery. Justifications for Admission Other Justification ABRIL DIXON MD Jan 30, 2020 18:32
[2020-01-31] VITALS (9 sets, daily range): BP systolic 111–133; BP diastolic 46–65
[~2020-01-31] VITALS: Ht 162.6 cm; Wt 80.7 kg
[~2020-01-31 06:09] MED LIST changes: +ACETAMINOPHEN 500 MG TABLET PO PRN; +CLINDAMYCIN 900MG PREMIX 50 ML IV PRN; +TV=100ml MORPHINE 5 MG, KETOROLAC 30 MG, ROPIVacaine 0.5% PF 60 ML, EPINEPH... INT ART ONE
[2020-01-31] MEDS ORDERED: DEXAMETHASONE SOD PHOS 4 MG/ML VIAL ONE (06:32)
[2020-01-31] MEDS ORDERED: LIDOCAINE 2% PF 5 ML VIAL. ONE (06:32)
[2020-01-31] MEDS ORDERED: ONDANSETRON PF 4 MG/2 ML VIAL. ONE (06:32)
[2020-01-31] MEDS ORDERED: fentaNYL PF VIAL 100 MCG/2 ML VIAL ONE (06:32)
[2020-01-31] MEDS ORDERED: PROPOFOL 10 MG/ML (20ML) VIAL. IV ONE ×3 (06:32→07:40)
[2020-01-31] MEDS ORDERED: SCOPOLAMINE 1.5MG PATCH. TD ONE (06:45)
[2020-01-31] MEDS: IV RINGERS,LACTATED 1000ML 1,000 ML IV SCH ×2 (06:45→10:12)
[2020-01-31] MEDS ORDERED: VANCOMYCIN 1 GM VIAL. ONE ×2 (06:53)
[2020-01-31] MEDS ORDERED: TOBRAMYCIN POWDER 1.2 GM VIAL. ONE (06:53)
[2020-01-31] MEDS ORDERED: MORPHINE SULFATE 2 MG/ML VIAL. IV PRN (07:00)
[2020-01-31] MEDS ORDERED: HYDROmorphone 2 MG/ML VIAL IV PRN (07:00)
[2020-01-31] MEDS ORDERED: ONDANSETRON PF 4 MG/2 ML VIAL. IV PRN (07:00)
[2020-01-31] MEDS ORDERED: LIDOCAINE 1% PF 2 ML VIAL. ID PRN (07:00)
[2020-01-31] MEDS ORDERED: fentaNYL PF VIAL 100 MCG/2 ML VIAL IV PRN (07:00)
[2020-01-31] MEDS ORDERED: PROCHLORPERAZINE 10 MG/2 ML VIAL. IV PRN (07:00)
[2020-01-31] MEDS ORDERED: ROCURONIUM 50 MG/5 ML VIAL. ONE (07:09)
[2020-01-31] MEDS ORDERED: diphenhydrAMINE 50 MG/ML VIAL ONE (07:30)
[2020-01-31] MEDS ORDERED: FAMOTIDINE 20 MG/2 ML VIAL ONE (07:30)
[2020-01-31] MEDS: TRANEXAMIC ACID 1,000 MG in IV NS 50ML -- 1ST BAG INJ ONE (07:50)
[2020-01-31] MEDS: TRANEXAMIC ACID 1,000 MG in IV NS 50ML -- 2ND BAG INJ ONE ×2 (07:50→09:01)
[2020-01-31] MEDS ORDERED: CELECOXIB 100 MG CAPSULE. PO PRN (08:00)
[2020-01-31 08:10] LABS: BASO # 0.1 x10^3/uL (0.0-0.2); BASO % 1 % (0-3); EOS # 0.2 x10^3/uL (0.0-0.7); EOS % 2 % (0-3); HEMATOCRIT 30.8 % (36.0-47.0); HEMOGLOBIN 9.4 g/dL (12.0-15.5); LYMPH # 1.5 x10^3/uL (1.0-4.8); LYMPH % 20 % (24-48); MEAN CORPUSCULAR HEMOGLOBIN 20 pg (25-35); MEAN CORPUSCULAR HGB CONC 31 g/dL (31-37); MEAN CORPUSCULAR VOLUME 66 fL (79-100); MONO # 0.7 x10^3/uL (0.0-1.1); MONO % 9 % (0-9); NEUT # 5.2 x10^3/uL (1.8-7.7); NEUT % 69 % (31-73); PLATELET COUNT 180 x10^3/uL (140-400); RED BLOOD COUNT 4.66 x10^6/uL (3.50-5.40); RED CELL DISTRIBUTION WIDTH 18.6 % (11.5-14.5)
[2020-01-31] MEDS ORDERED: NEOSTIGMINE METHYLSULFATE 5 MG/5 ML SYRINGE. ONE (09:06)
[2020-01-31] MEDS ORDERED: GLYCOPYRROLATE 1 MG/5 ML VIAL. ONE (09:06)
[2020-01-31] MEDS ORDERED: SEVOFLURANE 61 TO 120 MINUTES. IH ONE (09:07)
[2020-01-31] MEDS ORDERED: MORPHINE SULFATE 2 MG/ML VIAL. IVP PRN (09:30)
[2020-01-31] MEDS ORDERED: diphenhydrAMINE 50 MG/ML VIAL IVP PRN (09:30)
[2020-01-31] MEDS ORDERED: DEXTROSE 50% 25 GM / 50ML DISP.SYRIN. IV PRN (09:30)
[2020-01-31] MEDS ORDERED: PROCHLORPERAZINE 5 MG TABLET. PO PRN (09:30)
[2020-01-31] MEDS ORDERED: 0.9 % SODIUM CHLORIDE 10 ML DISP.SYRIN. IV PRN (09:30)
[2020-01-31] MEDS ORDERED: ZOLPIDEM 5 MG TABLET. PO PRN (09:30)
[2020-01-31] MEDS ORDERED: CALCIUM CARBONATE 500 MG TAB.CHEW PO PRN (09:30)
[2020-01-31] MEDS ORDERED: fentaNYL PF VIAL 100 MCG/2 ML VIAL IVP PRN (09:30)
[2020-01-31] MEDS ORDERED: METOCLOPRAMIDE HCL 10 MG/2 ML VIAL. IVP PRN (09:30)
[2020-01-31 09:32] LABS: PLT ESTIMATE ADEQUATE (ADEQUATE); WHITE BLOOD COUNT 7.5 x10^3/uL (4.0-11.0)
[2020-01-31 09:33] LABS: ANISOCYTOSIS PRESENT; HYPOCHROMIA PRESENT; MICROCYTOSIS PRESENT
--- NOTE | 2020-01-31 09:36 | PDOC4 ---
Operative Note Operative Note Date of Procedure: January 31, 2020 Pre-Op Diagnosis: Unilateral primary osteoarthritis, right knee. M17.11 Post-Op Diagnosis: same Procedure: right total knee arthroplasty with patella resurfacing, robotic assisted, CPT 60252 Surgeon: Abril Vazquez MD Heading And Priming Operator: PATRICIO Virk Anesthesia: General EBL: 50 mL Specimens Obtained: right knee bone and soft tissue Complications: none Drains: Hemovac plus pain catheter Tourniquet time: 50 Minutes Tourniquet Pressure: 300 mm Hg Indications for Procedure: Knee arthritis pain, affecting quality of life, unrelieved by nonoperative management Findings: Severe osteoarthritis with bone on bone contact medially with full thickness cartilage loss in the patellofemoral and lateral compartments Implants: Buitrago & Nephew Journey II Total Knee System, Size 4 right bicruciate stabilized Journey II BCS cobalt chrome femoral component, size 3 right Journey nonporous tibial baseplate, size 3-4 12 mm right Journey II BCS constrained articular insert, 29 mm oval Hina II resurfacing patellar component Procedure in Detail: The patient was identified in the preoperative holding area, and the correct right lower extremity was marked by me. The patient was taken to the operating room where the patient was anesthetized by the Department of Anesthesia. Preoperative antibiotics were given intravenously. Tranexamic acid 1 g was given intravenously for intraoperative hemostasis. A "time-out" procedure was performed. The patient was positioned supine on the operative table with a tourniquet on the upper right thigh. A right hip bump and heel bump were attached to the operating table for later intraoperative positioning. The right lower limb was thoroughly scrubbed, then sterile Chloraprep solution was applied, and the limb was draped in sterile fashion. The operating team wore exhaust ventilated hoods with eSKY.pl Personal Protection Toga Zippered Peel-Away protection system. An impervious stockinet and an adhesive drape were used such that the skin was entirely covered. The limb was exsanguinated with an Esmarch bandage, and the tourniquet was inflated. A midline skin incision was made with a scalpel using the patella and tibial tubercle as landmarks. Electrocautery was used for hemostasis. My corporate legal assistant used rake retractors and a laparotomy sponge. A medial parapatellar arthrotomy incision was used with extension into the distal quadriceps tendon. The patella was retracted laterally and Hohmann retractors were now used by my corporate legal assistant. Excess synovium, the menisci, and the cruciate ligaments were resected sharply. A periarticular multimodal ropivacaine anesthetic injection was used in the suprapatellar pouch and distal quadriceps muscle. The patella was everted and exposed. The patella thickness was measured with a caliper, and then cut freehand with a saw, using caliper measurements to assess the resection. The lateral retinaculum was partially released from the lateral patella using electrocautery. Rongeurs were used to make sure there were no remaining exposed patellar osteophytes medially or laterally. The patella was sized, and then drilled for an oval three-peg patella component. The tibial tracker array for the NAVIO system was applied to the tibial crest four finger breadths below the tibial tubercle, using percutaneous incisions and bicortical pins. The femoral tracker array was applied outside of the original incision using two separate stab incisions using bicortical pins. Checkpoint verification pins were applied to the femur and tibia. Using the point probe, the medial and lateral malleoli were localized and the locations were stored. The center of the tibia was noted at the anterior cruciat e ligament insertion and stored. The center of the femur was marked at the intersection of [place]ess line with the transepicondylar axis. The hip center calculation was performed with range of motion of the hip. The femur neutral position was identified, and simulated weightbearing was performed with axial compression on the foot. Range of motion without stress was performed and the data collected. Range of motion with valgus stress, and range of motion with varus stress data collection was also performed. Rotational references include the Whitesidess line, and the trans-epicondylar axis. The femoral articular surface was now mapped in 3 dimensions using the point probe and digital data collected. The tibial condyle articular surfaces and cortical edges were mapped in 3 dimensions using the point probe including the medial and lateral tibial plateau. Implant planning was now performed on-screen with manipulation of the implant sizes, cut thicknesses and gaps, component rotation, component flexion/extension and component varus/valgus until satisfactory ligament balance, alignment and stability of the knee was expected throughout the range of motion. No additional releases were required. My corporate legal assistant held a Hohmann retractor, a medial Z-retractor, and an [place] retractor to protect the medial and lateral collateral ligaments, the patellar tendon, the skin and the other soft tissues. The point probe was used to confirm the location of the checkpoint verification pins. The distal femoral surface was now prepared using the Anspach nash with footpedal, and the NAVIO handpiece for bone removal to the previously planned distal femoral resection. The crosshairs at the pin locations were marked by using a mallet and the point probe for definitive location. A 5-in-1 Journey II cutting guide was then applied and the position was checked with the virtual joycelyn wing from the NAVIO to ensure proper placement as the pins were applied. The posterior, anterior, and all chamfer cuts were made with the oscillating saw. Excess bone was removed with an osteotome and rongeurs. The tibial cutting guide was applied, positioned using the NAVIO virtual joycelyn wing, and secured to the upper tibia using three pins at the previously planned location. The virtual joycelyn wing was used to confirm the resection depth, slope and coronal alignment. The upper tibia was cut made with an oscillating saw. My corporate legal assistant held Hohmann retractors and a posterior cruciate ligament retractor to protect the medial and lateral collateral ligaments, the patellar tendon, the skin, the peroneal nerve and the other soft tissues. The upper tibia was sized with a trial baseplate. The posterior compartment was cleared of osteophytes and loose bodies. The periarticular anesthetic injection was used in the posterior compartment. The box cut for a posterior stabilized component was made. A preliminary reduction was performed with a trial femur, trial tibial baseplate and trial polyethylene. The NAVIO system was used to confirm range of motion, and post operative stressed gap assessment. The stability was assessed using different thicknesses of tibial articular surface to find satisfactory stability and good range of motion. The rotation of the tibial component was marked on the upper tibia. Final trial reduction was now performed verifying patella tracking and tibiofemoral stability and alignment. The bone pins and tracker arrays were removed, and the checkpoint verification pins were removed. The tibia preparation was completed with a drill, saw, and fin punch at the previously noted rotation. The final implants were verified and opened. Outer gloves were changed by the operating team. Betadine lavage was used. The bone cuts were irrigated with saline using the Ceregene InterPulse device and then dried with suction and laparotomy sponges. Two packages of Buitrago + Nephew Rally HV bone cement were mixed in powdered form with Vancomycin 1gm and Tobramycin 1.2 gm, and then vacuum-mixed with the monomer, and placed into a cement gun. The cut surfaces of the bone were thoroughly dried with suction and with laparotomy sponges for cement interdigitation. The final components were cemented into place. The knee was kept at full extension while the cement hardened, and excess cement was removed. Tranexamic acid 1 g was redosed intravenously for additional intraoperative hemostasis. The tourniquet was released, and electrocautery was used for hemostasis. A final periarticular anesthetic injection was used for pain relief. The bone pin sites on the tibial crest were closed with #3-0 Nylon sutures. A final check of [id number] and stability was made, and the polyethylene implant final size was chosen. The polyethylene implant was secured to the tibial baseplate, and the knee was reduced a final time and range of motion and stability was confirmed. Thorough irrigation was used. A pain catheter, and a 10 Fr Hemovac were inserted. Topical Vancomycin 1 gm was used during the closure. The arthrotomy was closed with interrupted [id number] #1 Vicryl suture. The subcutaneous tissues were approximated initially with #2-0 Vicryl inverted interrupted sutures by my corporate legal assistant. Next the subcuticular layer was approximated in a running fashion with #3-0 STRATAFIX suture by my corporate legal assistant. The skin incision was then covered and reinforced by my corporate legal assistant with Acticoat, followed by a GIFTY single use negative pressure wound therapy dressing Soft roll and an Donald wrap were applied. Needle and sponge counts were correct. There were no apparent complications. The patient returned to the recovery room in stable condition. ABRIL VAZQUEZ MD Jan 31, 2020 09:36
[2020-01-31] MEDS: fentaNYL PF VIAL 100 MCG/2 ML VIAL IV PRN ×4 (10:00→10:52)
[2020-01-31] MEDS ORDERED: oxyCODONE/APAP 5/325 1 TAB TABLET PO PRN (10:00)
--- NOTE | 2020-01-31 10:40 | RAD ---
EXAM: Right knee, 2 views. HISTORY: Arthroplasty. COMPARISON: None. FINDINGS: 2 views of the right knee are obtained. There is a right knee arthroplasty in expected posi tion. There is soft tissue gas and a drain due to recent surgery. IMPRESSION: Right knee arthroplasty in expected position. Electronically signed by: Jody Rizo MD (01/31/2020 10:37 AM) [id number]
[2020-01-31] MEDS ORDERED: METOPROLOL SUCC 24HR ER 50 MG TAB.ER.24H. PO SCH (11:00)
[2020-01-31] MEDS: CHOLECALCIFEROL (VITAMIN D3) 5,000 UNIT CAPSULE PO SCH ×2 (11:00→20:37)
[2020-01-31] MEDS: LACTOBACILLUS RHAMNOSUS GG 1 CAPSULE. PO SCH ×2 (11:00→20:37)
--- NOTE | 2020-01-31 11:41 | NUR ---
Rec'd from PACU per bed, alert/oriented, dressing CDI to RLE, IAC & Hemovac in place, clamp removed from Hemovac immediate suction with sanguineous drainage,state comfort level 6/10, ice pack in place, IVF infusing into left dorsal hand, see admission for details, take sips of water, refused meal at this time, requested spouse to bring in walker from home agreed, oriented to surroundings & procedures, call light within reach, spouse at bedside, HOB elevated.
[2020-01-31] MEDS: LUBIPROSTONE 24 MCG CAPSULE PO SCH (11:59)
[2020-01-31] MEDS: SENNOSIDES/DOCUSATE 8.6/50MG TABLET. PO SCH ×2 (11:59→20:37)
[2020-01-31] MEDS: LISINOPRIL 20 MG TABLET PO SCH (12:00)
--- NOTE | 2020-01-31 12:08 | NUR ---
Requested family member to bring in Domperidone & Dexilant from home, [facility] doesn't supply Domeridone also patient request Dexilant, family members at bedside, medicated for continued discomfort
[2020-01-31] MEDS: CLINDAMYCIN 900MG PREMIX 50 ML IV SCH ×2 (12:34→19:14)
--- NOTE | 2020-01-31 14:50 | NUR ---
Domperidone & Dexilant received from spouse will send to pharmacy for approval
[2020-01-31] MEDS: PANTOPRAZOLE 40 MG TABLET.DR. PO SCH (16:30)
[2020-01-31] MEDS: IV NORMAL SALINE 1000ML BAG 1,000 ML IV SCH (16:54)
[2020-01-31] MEDS: KETOROLAC 30MG VIAL 30 MG, BUPIVACAINE MPF 0.25% 20 ML, EPINEPHrine 0.5 MG in TOTAL VOL... INT ART SCH (18:08)
[2020-01-31] MEDS: DOMPERIDONE 10 MG PO SCH (20:35)
[2020-01-31] MEDS: APIXABAN 5 MG TABLET. PO SCH (20:37)
[2020-01-31] MEDS: FAMOTIDINE 20 MG TABLET. PO SCH (20:37)
[2020-01-31] MEDS: ATORVASTATIN CALCIUM 40 MG TABLET. PO SCH (20:37)
[2020-01-31] MEDS ORDERED: APIXABAN 5 MG TABLET. PO SCH (21:00)
--- NOTE | 2020-01-31 22:00 | NUR ---
drowsy but arouses to name. denies pain or nausea at this time. take evening pills without problems. ivf continue. resumes sleep easily
[2020-02-01] MEDS: CLINDAMYCIN 900MG PREMIX 50 ML IV SCH (01:34)
[2020-02-01 03:00] VITALS: BP 122/56
[2020-02-01] MEDS: PANTOPRAZOLE 40 MG TABLET.DR. PO SCH (05:29)
[2020-02-01] MEDS: KETOROLAC 30MG VIAL 30 MG, BUPIVACAINE MPF 0.25% 20 ML, EPINEPHrine 0.5 MG in TOTAL VOL... INT ART SCH (05:34)
[2020-02-01] MEDS ORDERED: MAGNESIUM HYDROXIDE 2,400 MG/30 ML ORAL.SUSP. PO PRN (06:00)
--- NOTE | 2020-02-01 06:34 | NUR ---
Radha has been comfortable this shift. she denies nausea this shift
[2020-02-01 07:11] VITALS: BP 136/72
--- NOTE | 2020-02-01 07:14 | NUR ---
ANILA accidently accidently pulled apart her Hemovac. Hemovac removed along with IAC (blue tip intact)
[2020-02-01] MEDS: ASPIRIN ENTERIC COATED 81 MG TABLET.DR. PO SCH (07:41)
[2020-02-01] MEDS: DOMPERIDONE 10 MG PO SCH ×2 (07:41→20:37)
[2020-02-01] MEDS: FAMOTIDINE 20 MG TABLET. PO SCH ×2 (07:42→20:36)
[2020-02-01] MEDS: oxyCODONE/APAP 5/325 1 TAB TABLET PO PRN ×4 (07:42→20:43)
[2020-02-01] MEDS: MULTIVITAMIN with MINERAL TABLET. PO SCH (07:42)
[2020-02-01] MEDS: CELECOXIB 100 MG CAPSULE. PO SCH (07:42)
[2020-02-01] MEDS: APIXABAN 5 MG TABLET. PO SCH ×2 (07:43→20:37)
[2020-02-01] MEDS: LISINOPRIL 20 MG TABLET PO SCH (07:43)
[2020-02-01] MEDS: METOPROLOL SUCC 24HR ER 25 MG TAB.ER.24H. PO SCH (07:44)
[2020-02-01] MEDS ORDERED: DEXLANSOPRAZOLE 60 MG PO SCH (09:00)
[2020-02-01] MEDS: IV NORMAL SALINE 1000ML BAG 1,000 ML IV SCH (09:30)
--- NOTE | 2020-02-01 15:31 | NUR ---
CONTRERAS wrap removed after last therapy session. Slight bleeding still present at hemovac and IAC site from this morning. Foam dressing applied over site. GIFTY dressing CDI with no signs of bleeding noted. Bruising and swelling noted. Will monitor.
[2020-02-01] MEDS ORDERED: BISACODYL 10 MG SUPP.RECT. PR PRN (16:00)
--- NOTE | 2020-02-01 17:53 | PDOC ---
PROGRESS NOTES Date of Service DATE: 02/01/20 TIME: 17:53 Subjective Subjective Quite a bit of pain at first. Received IV pain meds to control. Objective Vital Signs Vital Signs Date Time Temp Pulse Resp B/P (MAP) Pulse Ox O2 Delivery O2 Flow Rate FiO2 02/01/20 17:42 97 Room Air 02/01/20 07:44 93 126/64 02/01/20 07:11 97.9 20 97.9 01/31/20 14:00 2.0 Physical Exam GIFTY intact and dry. Pain catheter and Hemovac have been removed. Calf soft and NT. Good AROM of foot and toes. Intact sensation distally. No sign of compartment syndrome or DVT. No blisters. Labs Laboratory Tests Test 01/31/20 06:36 White Blood Count 7.5 x10^3/uL (4.0-11.0) Red Blood Count 4.66 x10^6/uL (3.50-5.40) Hemoglobin 9.4 g/dL (12.0-15.5) Hematocrit 30.8 % (36.0-47.0) Mean Corpuscular Volume 66 fL (79-100) Mean Corpuscular Hemoglobin 20 pg (25-35) Mean Corpuscular Hemoglobin Concent 31 g/dL (31-37) Red Cell Distribution Width 18.6 % (11.5-14.5) Platelet Count 180 x10^3/uL (140-400) Neutrophils (%) (Auto) 69 % (31-73) Lymphocytes (%) (Auto) 20 % (24-48) Monocytes (%) (Auto) 9 % (0-9) Eosinophils (%) (Auto) 2 % (0-3) Basophils (%) (Auto) 1 % (0-3) Neutrophils # (Auto) 5.2 x10^3/uL (1.8-7.7) Lymphocytes # (Auto) 1.5 x10^3/uL (1.0-4.8) Monocytes # (Auto) 0.7 x10^3/uL (0.0-1.1) Eosinophils # (Auto) 0.2 x10^3/uL (0.0-0.7) Basophils # (Auto) 0.1 x10^3/uL (0.0-0.2) Platelet Estimate Adequate (ADEQUATE) Hypochromasia Present Anisocytosis Present Microcytosis Present Imaging Report reviewed, images independently reviewed. Satisfactory TKA without apparent complications. [facility] [address] [place] [address] IMAGING REPORT Signed PATIENT: ANILA BAETS ACCOUNT: [id number] : 1945 LOCATION: [address] [place] [address] AGE: 74 SEX: F EXAM STATUS: ADM IN ORD. PHYSICIAN: ABRIL DIXON MD REASON: POST OP PROCEDURE: KNEE RIGHT 2V EXAM: Right knee, 2 views. HISTORY: Arthroplasty. COMPARISON: None. FINDINGS: 2 views of the right knee are obtained. There is a right knee arthroplasty in expected position. There is soft tissue gas and a drain due to recent surgery. IMPRESSION: Right knee arthroplasty in expected position. Electronically signed by: Jody Rizo MD (01/31/2020 10:37 AM) [id number] DICTATED and SIGNED BY: JODY RIZO MD DATE: 01/31/20 1036 Assessment Assessment POD# 1 after TKA Plan Plan of Care Continue PT. Not yet able to get out of bed without assistance. Need to watch incision for blisters. IV pain meds if necessary. Justicifation of Admission Dx: Justifications for Admission: Justification of Admission Dx: Yes ABRIL DIXON MD Feb 01, 2020 17:53
[2020-02-01 18:12] VITALS: BP 133/57
--- NOTE | 2020-02-01 20:00 | NUR ---
Patient resting in bed. States "I'm just waiting for my cat so I can let him in." Oriented her to the hospital, she laughed. Bed alarm activated, call light in reach.
[2020-02-01] MEDS: ATORVASTATIN CALCIUM 40 MG TABLET. PO SCH (20:36)
[2020-02-02] MEDS: oxyCODONE/APAP 5/325 1 TAB TABLET PO PRN ×3 (03:08→12:11)
[2020-02-02 06:26] VITALS: BP 143/62
--- NOTE | 2020-02-02 06:37 | NUR ---
More focused and oriented, in recliner drinking coffee. VSS. Dexilant (pt's home med) given as ordered.
[2020-02-02] MEDS ORDERED: DEXILANT 60MG PO SCH (07:30)
[2020-02-02] MEDS: APIXABAN 5 MG TABLET. PO SCH (08:12)
[2020-02-02] MEDS: DOMPERIDONE 10 MG PO SCH (08:12)
[2020-02-02] MEDS: LACTOBACILLUS RHAMNOSUS GG 1 CAPSULE. PO SCH (08:12)
[2020-02-02] MEDS: MULTIVITAMIN with MINERAL TABLET. PO SCH (08:12)
[2020-02-02] MEDS: LISINOPRIL 20 MG TABLET PO SCH (08:13)
[2020-02-02] MEDS: CHOLECALCIFEROL (VITAMIN D3) 5,000 UNIT CAPSULE PO SCH (08:13)
[2020-02-02] MEDS: CELECOXIB 100 MG CAPSULE. PO SCH (08:13)
[2020-02-02] MEDS: LUBIPROSTONE 24 MCG CAPSULE PO SCH (08:13)
[2020-02-02] MEDS: ASPIRIN ENTERIC COATED 81 MG TABLET.DR. PO SCH (08:13)
[2020-02-02] MEDS: METOPROLOL SUCC 24HR ER 25 MG TAB.ER.24H. PO SCH (08:14)
[2020-02-02] MEDS: FAMOTIDINE 20 MG TABLET. PO SCH (08:14)
[2020-02-02] MEDS: SENNOSIDES/DOCUSATE 8.6/50MG TABLET. PO SCH (08:14)
[2020-02-02 09:44] LABS: HEMATOCRIT 25.5 % (36.0-47.0); HEMOGLOBIN 7.8 g/dL (12.0-15.5)
--- NOTE | 2020-02-02 13:29 | PDOC ---
PROGRESS NOTES Date of Service DATE: 02/02/20 TIME: 13:28 Subjective Subjective Doing well. Planning for discharge today. Objective Vital Signs Vital Signs Date Time Temp Pulse Resp B/P (MAP) Pulse Ox O2 Delivery O2 Flow Rate FiO2 02/02/20 12:11 94 Room Air 02/02/20 08:14 86 143/62 02/02/20 06:26 97.7 20 97.7 01/31/20 14:00 2.0 Physical Exam GIFTY dressing changed. Incision benign. Labs Laboratory Tests Test 02/02/20 08:20 Hemoglobin 7.8 g/dL (12.0-15.5) Hematocrit 25.5 % (36.0-47.0) Mean Corpuscular Hemoglobin Concent 31 g/dL (31-37) Laboratory Tests Test 02/02/20 08:20 Hemoglobin 7.8 g/dL (12.0-15.5) Hematocrit 25.5 % (36.0-47.0) Mean Corpuscular Hemoglobin Concent 31 g/dL (31-37) Assessment Assessment POD #2 after TKA Plan Plan of Retirement today. Oral pain meds. Aspirin BID for DVT prophylaxis. Follow up with my office next week. Home Health PT. Justicifation of Admission Dx: Justifications for Admission: Justification of Admission Dx: Yes ABRIL DIXON MD Feb 02, 2020 13:29
--- NOTE | 2020-02-02 13:33 | PDOC3 ---
Discharge Summary Visit Information Date of Admission: Jan 31, 2020 Date of Discharge: Feb 02, 2020 Brief Hospital Course Allergies Allergies Coded Allergies Type Severity Reaction Last Updated Verified adhesive tape Allergy Severe BANDAIDS - TEARS OFF SKIN 01/31/20 Yes hydrocodone Allergy Severe SEVERE DEPRESSION/ IRRITABILITY 01/31/20 Yes adhesive Adverse Reaction Severe 01/31/20 Yes amoxicillin Adverse Reaction Intermediate Nausea and Vomiting 01/31/20 Yes ciprofloxacin Adverse Reaction Intermediate Nausea 01/31/20 Yes codeine Adverse Reaction Intermediate Nausea 01/31/20 Yes sulfamethoxazole Adverse Reaction Intermediate Nausea 01/31/20 Yes trimethoprim Adverse Reaction Intermediate Nausea 01/31/20 Yes ondansetron Adverse Reaction Mild nausea, vomiting 01/31/20 Yes promethazine Adverse Reaction Mild nausea, vomiting 01/31/20 Yes Vital Signs Vital Signs Date Time Temp Pulse Resp B/P (MAP) Pulse Ox O2 Delivery O2 Flow Rate FiO2 02/02/20 12:11 94 Room Air 02/02/20 08:14 86 143/62 02/02/20 06:26 97.7 20 97.7 Lab Results Laboratory Tests Test 02/02/20 08:20 Hemoglobin 7.8 g/dL (12.0-15.5) Hematocrit 25.5 % (36.0-47.0) Mean Corpuscular Hemoglobin Concent 31 g/dL (31-37) Laboratory Tests Test 02/02/20 08:20 Hemoglobin 7.8 g/dL (12.0-15.5) Hematocrit 25.5 % (36.0-47.0) Mean Corpuscular Hemoglobin Concent 31 g/dL (31-37) Brief Hospital Course 74 year old who presented with knee osteoarthritis, for elective total knee arthroplasty. The patient underwent total knee arthroplasty under general anesthesia the day of admission. Perioperative antibiotics and DVT prophylaxis were used. Postoperatively physical therapy and case management were consulted. The patient progressed and is stable for discharge. Discharge Information Condition at Discharge: Stable Follow Up: Weeks Disposition/Orders: D/C to Home w/ HH Scheduled Apixaban (Eliquis), 5 MG PO BID Aspirin (Aspir-Low), 81 MG PO DAILY, (Reported) Cholecalciferol (Vitamin D3) (Vitamin D3), 5,000 UNIT PO DAILY, (Reported) Dexlansoprazole (Dexilant), 60 MG PO DAILY, (Reported) Diltiazem HCl (Diltiazem 24Hr Cd), 240 MG PO DAILY, (Reported) Lactobacillus Acidophilus (Probiotic), 1 EACH PO DAILY, (Reported) Lubiprostone (Amitiza), 8 MCG PO DAILY, (Reported) Metoprolol Succinate (Toprol XL), 25 MG PO DAILY, (Reported) Rosuvastatin Calcium (Crestor), 20 MG PO HS, (Reported) [domperidone], 10 MG PO BID, (Reported) Scheduled PRN Benazepril Hcl (Benazepril Hcl), 20 MG PO DAILY PRN for HTN, (Reported) Ibuprofen (Ibuprofen), 600 MG PO PRN Q6HRS PRN for PAIN Patient Instructions Patient Instructions Continue to weight bearing as tolerated with walker. Keep GIFTY dressing intact and dry. Follow up with Dr. Vazquez's office next week. Call for appointment unless already scheduled. Continue eliquis and low dose aspirin to prevent blood clots. Justicifation of Admission Dx: Justifications for Admission: Justification of Admission Dx: Yes ABRIL VAZQUEZ MD Feb 02, 2020 13:33
--- NOTE | 2020-02-02 13:35 | SNU/HH DC ---
DISCHARGE WITH HOME HEALTH DISCHARGE INFORMATION: Discharge Date: Feb 02, 2020 Final Diagnosis: Osteoarthritis right knee. Aftercare after right total knee arthroplasty. Condition on Discharge: Stable CODE STATUS: Code Status: Full HOME HEALTH: Face to Face: I certify this patient is under my care and that I, or a nurse practitioner or physician's bookkeeping assistant working with me, had a face to face encounter that meets the physician face to face encounter requirements with this patient on 02/02/2020 RN For Eval/Treatment: No Physical Therapy For: Evalulation/Treatment Pt Meets Homebound Status: Unsteady balance w/ amb,, Limited distance walking POST DISCHARGE ORDERS: Activity Instructions for Disc: Walk in house Weight Bearing Status after Di: No restrictions, Full weight bearing, As tolerated Bathing Instructions: Shower-keep dressing dry, No Tub Bath until see Wound/Incision Care: Ice to area for comfort, Keep wound/cast CDI, Keep wound elevated, Do not change dressing Other wound/incision instructi: cover dressing while shower, remove GIFTY batte ry pack on Friday and tape FOLLOW-UP: Follow Up With: F/U with Dr. Dixon at 0900 on 02/06 if need to reschedule call [phone] Warfarin Follow UP: on eliquis as blood take as previous TREATMENT/EQUIPMENT ORDERS: Adaptive Equipment Issued: None, Front wheeled walker CERTIFICATION STATEMENT: Certification Statement: Certification Statement: Based on the above finding, I certify that this patient is confined to the home and needs intermittent retirement care, physical therapy and/or speech therapy, or continues to need occupational therapy.~ This patient is under my care, and I have initiated the establishment of the plan of care.~ This patient will be followed by myself or a community physician who will periodically review the plan of care. Home Meds Active Scripts Ibuprofen (IBUPROFEN) 600 Mg Tablet, 600 MG PO PRN Q6HRS PRN for PAIN, #12 TAB take with food or milk Prov:TRISHA ALLEN DO 11/27/19 Apixaban (ELIQUIS) 5 Mg Tablet, 5 MG PO BID for Atrial fibrillation for 30 Days, #60 TAB 11 Refills Prov:MELVA ZUNIGA MD 02/01/18 Reported Medications Lubiprostone (AMITIZA) 8 Mcg Capsule, 8 MCG PO DAILY for treat constipation, CAP 01/06/19 Metoprolol Succinate (Toprol XL) 50 Mg Tab.er.24h, 25 MG PO DAILY for FOR HYPERTENSION, TAB.SR 01/06/19 Lactobacillus Acidophilus (PROBIOTIC) 1 Each Capsule, 1 EACH PO DAILY for colon health, CAP 01/06/19 [domperidone] No Conflict Check, 10 MG PO BID for nausea/stomach upset 01/06/19 Diltiazem HCl (Diltiazem 24Hr Cd) 240 Mg Cap.er.24h, 240 MG PO DAILY for blood pressure control, CAP.SR 01/06/19 Cholecalciferol (Vitamin D3) (VITAMIN D3) 5,000 Unit Tablet, 5000 UNIT PO DAILY for low vit D level, TAB 01/30/18 Aspirin (ASPIR-LOW) 81 Mg Tablet., 81 MG PO DAILY for TIA 01/26/18 Benazepril Hcl (BENAZEPRIL HCL) 20 Mg Tablet, 20 MG PO DAILY PRN for HTN 01/26/18 Rosuvastatin Calcium (CRESTOR) 40 Mg Tablet, 20 MG PO HS for HLD 04/27/15 Dexlansoprazole (DEXILANT) 60 Mg Cap.mp, 60 MG PO DAILY for Gerd 04/27/15 ABRIL DIXON MD Feb 02, 2020 13:35
[2020-02-02] MEDS ORDERED: OXYC1TAB15 PO (14:06)
[2020-02-02 15:17] VITALS: BP 149/54
--- NOTE | 2020-02-02 15:39 | NUR ---
Patient left with her around 1500. Discharge education completed by this nurse, therapy, and the doctor prior to discharge. GIFTY dressing with no drainage noted so it remained in place at D/C as well as the foam dressing. IV discontinued early this morning. Scripts sent straight to the pharmacy per Dr Vazquez. No concerns noted at discharge.
[2020-02-03] MEDS ORDERED: DEXILANT 60MG PO SCH (06:00)
--- NOTE | 2020-02-03 09:09 | PATHOLOGY ---
[facility] Accession Number: [id number] . 01 Material submitted: . knee - RIGHT KNEE BONE AND TISSUE. Modifiers: right . 01 Clinical history: . RIGHT KNEE OA . 02 Diagnosis: Segments of bone and soft tissue, right total knee arthroplasty: - Advanced degenerative arthritis. (JPM/db; 02/02/2020) LBQ 02/02/2020 1711 Local . 02 Electronically signed: . Supa Arriola MD, Pathologist NPI- [id number] . 01 Gross description: . The specimen is received in formalin, labeled "Peg Lu, right knee bone and tissue". Received are multiple segments of bone, including the tibial plateau, admixed with soft tissue measuring 9.5 x 8.3 x 2.8 cm in aggregate dimensions. Meniscus is present. The articular surfaces are smooth to granular in appearance with evidence of eburnation. The specimen is submitted representatively in cassette A1, following decalcification. ([facility]; 02/01/2020) [facility] 02/01/2020 1112 Local . 02 Pathologist provided ICD-10: M17.11 . 02 CPT . 399293, 345480 Specimen Comment: A courtesy copy of this report has been sent to [phone], [phone] Specimen Comment: [id number] Specimen Comment: Report sent to / DR MCMAHON Performed at: 01 [facility] [address], [place] [id number] MD Ino Norton MD Phone: [phone] Performed at: 02 [facility] [address] [place], [place] [id number] MD Supa Arriola MD Phone: [phone]
--- NOTE | 2020-02-08 12:12 | NUR ---
IV Clindamycin started at 0134 on 01/31--Stop time 0204 on 01/31
== END 2020-02-02 15:15 | disposition home health service (06) ==
LOC: SURG 06:09 → 4 SOUTHEST 10:00
PROVIDERS: ADMIT Orthopaedic Surgery; ATTEND Orthopaedic Surgery
DX: M17.11 Unilateral primary osteoarthritis, right knee (principal); I10 Essential (primary) hypertension; I48.91 Unspecified atrial fibrillation; Z86.73 Personal history of transient ischemic attack (TIA), and cerebral infarction without residual deficits; Z96.652 Presence of left artificial knee joint; Z90.710 Acquired absence of both cervix and uterus; Z90.49 Acquired absence of other specified parts of digestive tract; Z98.890 Other specified postprocedural states
CPT/HCPCS: 27447; 36415; 73560; 85014; 85018; 85025; 86850; 86900; 86901; 88304; 88311; 96361; 96365; 96366; 96375; 97116; 97150; 97162; 97166; 97530; 97535; A4461; C1713; C1769; G0378; G0379; J0171; J0780; J1100; J1200; J1885; J2270; J2704; J2710; J2795; J3010; J3260; J3370; J3490; J7030; J7120; J2405

== ENCOUNTER 2020-02-07 02:21 | Inpatient (IN) | payer BC, MEDICARE ==
[~2020-02-07] VITALS: Ht 162.6 cm; Wt 82.0 kg
[~2020-02-07 02:21] MED LIST changes: -ACETAMINOPHEN 500 MG TABLET PO PRN; -CLINDAMYCIN 900MG PREMIX 50 ML IV PRN; +OXYC1TAB15 PO; -TV=100ml MORPHINE 5 MG, KETOROLAC 30 MG, ROPIVacaine 0.5% PF 60 ML, EPINEPH... INT ART ONE
[2020-02-07 03:30] LABS: BASO # 0.1 x10^3/uL (0.0-0.2); BASO % 1 % (0-3); EOS # 0.1 x10^3/uL (0.0-0.7); EOS % 1 % (0-3); HEMATOCRIT 24.6 % (36.0-47.0); HEMOGLOBIN 7.7 g/dL (12.0-15.5); LYMPH # 0.6 x10^3/uL (1.0-4.8); LYMPH % 7 % (24-48); MEAN CORPUSCULAR HEMOGLOBIN 21 pg (25-35); MEAN CORPUSCULAR HGB CONC 31 g/dL (31-37); MEAN CORPUSCULAR VOLUME 65 fL (79-100); MONO # 0.8 x10^3/uL (0.0-1.1); MONO % 9 % (0-9); NEUT # 7.2 x10^3/uL (1.8-7.7); NEUT % 83 % (31-73); PLATELET COUNT 169 x10^3/uL (140-400); RED BLOOD COUNT 3.76 x10^6/uL (3.50-5.40); RED CELL DISTRIBUTION WIDTH 18.5 % (11.5-14.5); WHITE BLOOD COUNT 8.8 x10^3/uL (4.0-11.0)
[2020-02-07] MEDS ORDERED: FAMOTIDINE 20 MG/2 ML VIAL IVP ONE (03:30)
[2020-02-07] MEDS ORDERED: METHYLNALTREXONE 12 MG/0.6 ML VIAL. SQ ONE (03:30)
[2020-02-07] MEDS ORDERED: LIDO:MAALOX 1:1 20 ML SINGLE DOSE. SWSW ONE (03:30)
[2020-02-07 03:45] LABS: CALCIUM 8.6 mg/dL (8.5-10.1); CREATININE 0.8 mg/dL (0.6-1.0); GFR 69.7; POTASSIUM 3.9 mmol/L (3.5-5.1)
[2020-02-07 03:51] LABS: ALBUMIN 2.8 g/dL (3.4-5.0); ALBUMIN/GLOBULIN RATIO 0.8 (1.0-1.7); MAGNESIUM 1.8 mg/dL (1.8-2.4); TOTAL BILIRUBIN 0.6 mg/dL (0.2-1.0); TOTAL PROTEIN 6.5 g/dL (6.4-8.2)
--- NOTE | 2020-02-07 04:00 | RAD ---
Abdominal series dated 02/07/2020. No comparison available. CLINICAL INDICATION: Double pain. FINDINGS: Single upright view the chest shows normal heart and mediastinal contours. There is elevation of righ t hemidiaphragm. Lungs are clear. No consolidation or pleural effusion. No pneumothorax. Flat and upright views the abdomen show nondilated gas-filled loops of bowel throughout. No abnormal calcification. No air-fluid level or pneumoperitoneum on the upright view. IMPRESSION: No acute radiographic abnormality. Nonobstructive bowel gas pattern. Electronically signed by: Felipe Fulton MD (02/07/2020 3:58 AM) [facility]
--- NOTE | 2020-02-07 04:16 | EKG ---
[facility] [address] [place] [address] Test Date: 2020-02-07 Test Time: 03:19:07 Pat Name: ANILA BATES Department: Room: Gender: F Piano Mover: : 1945 Requested By: MAXIMINO WESTON Order Number: [id number] Reading MD: Measurements Intervals [place] Rate: 107 P: 29 SC: 162 QRS: -2 QRSD: 76 T: 119 QT: 324 QTc: 438 Interpretive Statements SINUS TACHYCARDIA LEFTWARD AXIS LVH WITH REPOLARIZATION ABNORMALITY ABNORMAL ECG RI6.02 No previous ECG available for comparison
[2020-02-07] MEDS ORDERED: IOHEXOL 350 MG/ML 100 ML VIAL. IV ONE (04:30)
[2020-02-07] MEDS ORDERED: CONTRAST GIVEN. MC PRN (04:30)
--- NOTE | 2020-02-07 04:58 | PHYS DOC ---
Past Medical History Past Medical History: Cancer, CVA, Diverticulitis, Diverticulosis, GERD, High Cholesterol, Hypertension, Other Additional Past Medical Histor: BREAST & EAR CA, AORTIC STENOSIS Past Surgical History: Appendectomy, Cancer Surgery, Cholecystectomy, Hysterectomy, Other Additional Past Surgical Histo: BREAST LUMPECTOMY, EAR CA REMOVAL, EXP LAP, LEFT KNEE AND LEFT FOOT REPAIR Smoking Status: Never Smoker Alcohol Use: None Drug Use: None General Adult EDM: Chief Complaint: ABDOMINAL PAIN HPI: HPI: Patient is a 74 year old female who presented to ER for evaluation of epigastric abdominal pain associated with burning sensation in her chest and esophagus area. Patient had total knee replacement on January 31, 2020. Patient has been taking Percocet for pain, she had not been able to have a bowel movement for the last 2 days. Patient has been taking stool softeners at home but did not help with her constipation problem. Patient had acid reflux in the past, patient said the constipation makes her acid reflux worse. Patient denies any cough or fever. Patient patient could not sleep tonight due to burning sensation in her throat therefore she came in for evaluation. Review of Systems: Review of Systems: Constitutional: Denies fever or chills. [] Eyes: Denies change in visual acuity. [] HENT: Denies nasal congestion or sore throat. [] Respiratory: Denies cough or shortness of breath. [] Cardiovascular: Denies chest pain or edema. [] GI: Positive for abdominal pain, nausea, vomiting, constipation, no bloody stools or diarrhea. [] : Denies dysuria. [] Musculoskeletal: Denies back pain or joint pain. [] Integument: Denies rash. [] Neurologic: Denies headache, focal weakness or sensory changes. [] Endocrine: Denies polyuria or polydipsia. [] Lymphatic: Denies swollen glands. [] Psychiatric: Denies depression or anxiety. [] Heart Score: HEART Score for Chest Pain: HEART Score for Chest Pain Response (Comments) Value History Moderately Suspicious 1 ECG Nonspecific Repolarizatio 1 Age > 65 2 Risk Factors >3 Risk Factors or Hx CAD 2 Troponin >1-<3x Normal Limit 1 Total 7 Risk Factors: Risk Factors: DM, Current or recent (<one month) smoker, HTN, HLP, family history of CAD, obesity. Risk Scores: Score 0 - 3: 2.5% MACE over next 6 weeks - Discharge Home Score 4 - 6: 20.3% MACE over next 6 weeks - Admit for Clinical Observation Score 7 - 10: 72.7% MACE over next 6 weeks - Early Invasive Strategies Current Medications: Current Medications Medications (Trade) Dose Ordered Sig/[place] Start Time Stop Time Status Last Admin Dose Admin Famotidine (Pepcid Vial) 20 mg 1X ONCE 02/07/20 03:30 02/07/20 03:31 DC 02/07/20 03:52 20 MG Info (CONTRAST GIVEN -- Rx MONITORING) 1 each PRN DAILY PRN 02/07/20 04:30 02/09/20 04:29 Iohexol (Omnipaque 350 Mg/ml) 100 ml 1X ONCE 02/07/20 04:30 02/07/20 04:31 DC 02/07/20 04:50 100 ML Methylnaltrexone [place] (Relistor) 12 mg 1X ONCE 02/07/20 03:30 02/07/20 03:31 DC 02/07/20 03:52 12 MG Morphine Sulfate (Morphine Sulfate) 4 mg 1X ONCE 02/07/20 05:00 02/07/20 05:01 02/07/20 04:51 4 MG Multi-Ingredient Mouthwash/Gargle (Gi Cocktail) 20 ml 1X ONCE 02/07/20 03:30 02/07/20 03:31 DC 02/07/20 03:51 20 ML Allergies: Allergies: Allergies Coded Allergies Type Severity Reaction Last Updated Verified adhesive tape Allergy Severe BANDAIDS - TEARS OFF SKIN 01/31/20 Yes hydrocodone Allergy Severe SEVERE DEPRESSION/ IRRITABILITY 01/31/20 Yes adhesive Adverse Reaction Severe 01/31/20 Yes amoxicillin Adverse Reaction Intermediate Nausea and Vomiting 01/31/20 Yes ciprofloxacin Adverse Reaction Intermediate Nausea 01/31/20 Yes codeine Adverse Reaction Intermediate Nausea 01/31/20 Yes sulfamethoxazole Adverse Reaction Intermediate Nausea 01/31/20 Yes trimethoprim Adverse Reaction Intermediate Nausea 01/31/20 Yes ondansetron Adverse Reaction Mild nausea, vomiting 01/31/20 Yes promethazine Adverse Reaction Mild nausea, vomiting 01/31/20 Yes Physical Exam: PE: Constitutional: Well developed, well nourished, no acute distress, non-toxic appearance. [] HENT: Normocephalic, atraumatic, bilateral external ears normal, oropharynx moist, no oral exudates, nose normal. [] Eyes: PERRLA, EOMI, conjunctiva normal, no discharge. [] Neck: Normal range of motion, no tenderness, supple, no stridor. [] Cardiovascular:SINUS TACHYCARDIA , rate regular rhythm, LOUD SYSTOLIC murmur [] Lungs & Thorax: Bilateral breath sounds clear to auscultation [] Abdomen: Bowel sounds normal, soft, no tenderness, no masses, no pulsatile ma sses. [] Skin: Warm, dry, no erythema, no rash. [] Back: No tenderness, no CVA tenderness. [] Extremities: No tenderness, no cyanosis, no clubbing, ROM intact, no edema. [] Neurologic: Alert and oriented X 3, normal motor function, normal sensory function, no focal deficits noted. [] Psychologic: Affect normal, judgement normal, mood normal. [] Current Patient Data: Labs: Laboratory Tests Test 02/07/20 03:24 White Blood Count 8.8 x10^3/uL (4.0-11.0) Red Blood Count 3.76 x10^6/uL (3.50-5.40) Hemoglobin 7.7 g/dL (12.0-15.5) L Hematocrit 24.6 % (36.0-47.0) L Mean Corpuscular Volume 65 fL (79-100) L Mean Corpuscular Hemoglobin 21 pg (25-35) L Mean Corpuscular Hemoglobin Concent 31 g/dL (31-37) Red Cell Distribution Width 18.5 % (11.5-14.5) H Platelet Count 169 x10^3/uL (140-400) Neutrophils (%) (Auto) 83 % (31-73) H Lymphocytes (%) (Auto) 7 % (24-48) L Monocytes (%) (Auto) 9 % (0-9) Eosinophils (%) (Auto) 1 % (0-3) Basophils (%) (Auto) 1 % (0-3) Neutrophils # (Auto) 7.2 x10^3/uL (1.8-7.7) Lymphocytes # (Auto) 0.6 x10^3/uL (1.0-4.8) L Monocytes # (Auto) 0.8 x10^3/uL (0.0-1.1) Eosinophils # (Auto) 0.1 x10^3/uL (0.0-0.7) Basophils # (Auto) 0.1 x10^3/uL (0.0-0.2) Platelet Estimate Pending Sodium Level 137 mmol/L (136-145) Potassium Level 3.9 mmol/L (3.5-5.1) Chloride Level 102 mmol/L (98-107) Carbon Dioxide Level 25 mmol/L (21-32) Anion Gap 10 (6-14) Blood Urea Nitrogen 15 mg/dL (7-20) Creatinine 0.8 mg/dL (0.6-1.0) Estimated GFR (Cockcroft-Gault) 69.7 BUN/Creatinine Ratio 19 (6-20) Glucose Level 128 mg/dL (70-99) H Calcium Level 8.6 mg/dL (8.5-10.1) Magnesium Level 1.8 mg/dL (1.8-2.4) Total Bilirubin 0.6 mg/dL (0.2-1.0) Aspartate Amino Transferase (AST) 27 U/L (15-37) Alanine Aminotransferase (ALT) 49 U/L (14-59) Alkaline Phosphatase 94 U/L (46-116) Troponin I Quantitative 0.120 ng/mL (0.000-0.055) DF-Mkb-D-Type Natriuretic Peptide 1600 pg/mL (0-449) H Total Protein 6.5 g/dL (6.4-8.2) Albumin 2.8 g/dL (3.4-5.0) L Albumin/Globulin Ratio 0.8 (1.0-1.7) L Lipase 54 U/L (73-393) L Laboratory Tests 02/07/20 03:24 Laboratory Tests 02/07/20 03:24 Vital Signs: Vital Signs Date Time Temp Pulse Resp B/P (MAP) Pulse Ox O2 Delivery O2 Flow Rate FiO2 02/07/20 04:51 96 Room Air EKG: EKG: EKG was done at 2019, heart rate of 107 beats per minutes, sinus tachycardia, no ST segment elevation. Radiology/Procedures: Radiology/Procedures: [][facility] [address] [place], [place] [id number] IMAGING REPORT Signed PATIENT: ANILA BATES ACCOUNT: [id number] : 1945 LOCATION: ER AGE: 74 SEX: F EXAM STATUS: REG ER ORD. PHYSICIAN: MAXIMINO WESTON DO REASON: abdominal pain, constipation PROCEDURE: ACUTE ABDOMEN SERIES Abdominal series dated 02/07/2020. No comparison available. CLINICAL INDICATION: Double pain. FINDINGS: Single upright view the chest shows normal heart and mediastinal contours. There is elevation of right hemidiaphragm. Lungs are clear. No consolidation or pleural effusion. No pneumothorax. Flat and upright views the abdomen show nondilated gas-filled loops of bowel throughout. No abnormal calcification. No air-fluid level or pneumoperitoneum on the upright view. IMPRESSION: No acute radiographic abnormality. Nonobstructive bowel gas pattern. Electronically signed by: Felipe Fulton MD (02/07/2020 3:58 AM) [facility] DICTATED and SIGNED BY: FELIPE FULTON MD DATE: 02/07/20 [id number] [facility] [address] [place] [address] IMAGING REPORT Signed PATIENT: ANILA BATES ACCOUNT: [id number] : 1945 LOCATION: ER AGE: 74 SEX: F EXAM STATUS: REG ER ORD. PHYSICIAN: MAXIMINO WESTON DO REASON: chest pain, soa, recent right knee replacement PROCEDURE: CT ANGIOGRAPHY CHEST CTA chest with contrast dated 02/07/2020. No comparison CLINICAL INDICATION: Chest pain and shortness of breath. TECHNIQUE: Contiguous axial imaging the chest performed following the intravenous administration of 100 cc Omnipaque 350. Study was performed as dedicated PE protocol with thin cut coronal MIPS 3-D reconstruction. One or more of the following individualized dose reduction techniques were utilized for this examination: 1. Automated exposure control 2. Adjustment of the mA and/or kV according to patient size 3. Use of iterative reconstruction technique. FINDINGS: Contrast bolus is adequate. No evidence of central, lobar or segmental pulmonary embolus. Subsegmental branches are not well evaluated based on technique. Heart size is upper limits of normal. No pericardial effusion. Coronary artery calcifications. No mediastinal, hilar or axillary lymphadenopathy. Thyroid gland is unremarkable. Central airways are patent. Lungs are clear. No consolidation or pleural effusion. There are a few scattered calcified granuloma. Mildly prominent reticular nodular markings bilaterally. No pleural effusion or pneumothorax. Limited images of upper abdomen are unremarkable. Small hiatal hernia. No acute bony abnormality. Multilevel spondylosis. IMPRESSION: 1. No evidence of central, lobar or segmental pulmonary embolus. 2. Prominent reticular nodular markings throughout both lungs, nonspecific. Consider acute or chronic inflammatory process or atypical infection. 3. Coronary artery calcifications. 4. Small hiatal hernia Electronically signed by: Felipe Fulton MD (02/07/2020 4:57 AM) [facility] DICTATED and SIGNED BY: FELIPE FULTON MD DATE: 02/07/20 [id number] Course & Med Decision Making: Course & Med Decision Making Pertinent Labs and Imaging studies reviewed. (See chart for details) [] Dragon Disclaimer: Dragon Disclaimer: This electronic medical record was generated, in whole or in part, using a voice recognition dictation system. Departure Departure Impression: Primary Impression: Chest pain Additional Impressions: GERD (gastroesophageal reflux disease) Constipation Disposition: ADMITTED INPT THIS HOSP [facility] Condition: STABLE Referrals: ADÁN MCMAHON APRN (PCP) MAXIMINO WESTON DO Feb 07, 2020 04:58
[2020-02-07] MEDS ORDERED: MORPHINE SULFATE 4 MG/ML VIAL. IV ONE (05:00)
--- NOTE | 2020-02-07 05:00 | RAD ---
CTA chest with contrast dated 02/07/2020. No comparison CLINICAL INDICATION: Chest pain and shortness of breath. TECHNIQUE: Contiguous axial imaging the chest performed following the intravenous administration of 100 cc Omnip aque 350. Study was performed as dedicated PE protocol with thin cut coronal MIPS 3-D reconstruction. One or more of the following individualized dose reduction techniques were utilized for this examinat ion: 1. Automated exposure control 2. Adjustment of the mA and/or kV according to patient size 3. Use of iterative reconstruction technique. FINDINGS: Contrast bolus is adequate. No evidence of central, lobar or segmental pulmonary embolus. Subsegmenta l branches are not well evaluated based on technique. Heart size is upper limits of normal. No pericardial effusion. Coronary artery calcifications. No med iastinal, hilar or axillary lymphadenopathy. Thyroid gland is unremarkable. Central airways are patent. Lungs are clear. No consolidation or pleural effusion. There are a few sc attered calcified granuloma. Mildly prominent reticular nodular markings bilaterally. No pleural effu enmanuel or pneumothorax. Limited images of upper abdomen are unremarkable. Small hiatal hernia. No acute bony abnormality. Mul tilevel spondylosis. IMPRESSION: 1. No evidence of central, lobar or segmental pulmonary embolus. 2. Prominent reticular nodular markings throughout both lungs, nonspecific. Consider acute or chronic inflammatory process or atypical infection. 3. Coronary artery calcifications. 4. Small hiatal hernia Electronically signed by: Felipe Fulton MD (02/07/2020 4:57 AM) [facility]
[2020-02-07 06:37] LABS: ANISOCYTOSIS SLIGHT; PLT ESTIMATE ADEQUATE (ADEQUATE); POLYCHROMASIA SLIGHT
[2020-02-07 06:38] LABS: HYPOCHROMIA MOD; MICROCYTOSIS MOD; OVALOCYTES FEW; TARGET CELLS OCC; TEAR DROP CELLS OCC
--- NOTE | 2020-02-07 07:00 | PDOC1 ---
History and Physical Date of Admission Date of Admission DATE: 02/07/20 TIME: 06:38 Identification/Chief Complaint Chief Complaint Chest pain Source Source: Chart review, Patient History of Present Illness History of Present Illness Patient is a 34-year-old female with past medical history breast cancer, recent right knee surgery, who presents to the ER with complaints of epigastric abdominal pain. She had a right total knee replacement on 01/31/2020. Patient reports burning pain, 9/10. She took her home Percocet without significant improvement in her symptoms. She has a history of acid reflux, and states she is also been experiencing some constipation for the past 2 days. Historically she states that constipation makes her acid reflux worse. She denies any cough, fever, or shortness of breath. Will admit patient for further medical management. Past Medical History Cardiovascular: AFIB, HTN Pulmonary: No pertinent hx CENTRAL NERVOUS SYSTEM: TIA GI: Other Heme/Onc: Cancer Hepatobiliary: No pertinent hx Psych: No pertinent hx Rheumatologic: No pertinent hx Infectious disease: No pertinent hx Renal/: No pertinent hx Endocrine: No pertinent hx Past Surgical History Past Surgical History: Appendectomy, Hysterectomy Family History Family History: No Significant Family History: Other Social History Smoke: No ALCOHOL: none Drugs: None Current Problem List Problem List Problems Medical Problems: (1) Chest pain Status: Acute (2) Constipation Status: Acute (3) GERD (gastroesophageal reflux disease) Status: Acute Current Medications Current Medications Current Medications Multi-Ingredient Mouthwash/Gargle (Gi Cocktail) 20 ml 1X ONCE SWSW Last administered on 02/07/20at 03:51; Start 02/07/20 at 03:30; Stop 02/07/20 at 03:31; Status DC Famotidine (Pepcid Vial) 20 mg 1X ONCE IVP Last administered on 02/07/20at 03:52; Start 02/07/20 at 03:30; Stop 02/07/20 at 03:31; Status DC Methylnaltrexone [place] (Relistor) 12 mg 1X ONCE SQ Last administered on 02/07/20at 03:52; Start 02/07/20 at 03:30; Stop 02/07/20 at 03:31; Status DC Iohexol (Omnipaque 350 Mg/ml) 100 ml 1X ONCE IV Last administered on 02/07/20at 04:50; Start 02/07/20 at 04:30; Stop 02/07/20 at 04:31; Status DC Info (CONTRAST GIVEN -- Rx MONITORING) 1 each PRN DAILY PRN MC SEE COMMENTS; Start 02/07/20 at 04:30; Stop 02/09/20 at 04:29 Morphine Sulfate (Morphine Sulfate) 4 mg 1X ONCE IV Last administered on 02/07/20at 04:51; Start 02/07/20 at 05:00; Stop 02/07/20 at 05:01; Status DC Lorazepam (Ativan Inj) 1 mg 1X ONCE IVP ; Start 02/07/20 at 05:30; Stop 02/07/20 at 05:31; Status DC Active Scripts Active Eliquis (Apixaban) 5 Mg Tablet 5 Mg PO BID 30 Days Reported Percocet 5-325 Mg Tablet (Oxycodone/Acetaminophen) 1 Each Tablet 1-2 Tab PO Q4-6HRS PRN MDD 2 Tablet(s) 30 Days Amitiza (Lubiprostone) 8 Mcg Capsule 8 Mcg PO DAILY Toprol XL (Metoprolol Succinate) 50 Mg Tab.er.24h 25 Mg PO DAILY Probiotic (Lactobacillus Acidophilus) 1 Each Capsule 1 Each PO DAILY [domperidone] 10 Mg PO BID Diltiazem 24Hr Cd (Diltiazem HCl) 240 Mg Cap.er.24h 240 Mg PO DAILY Vitamin D3 (Cholecalciferol (Vitamin D3)) 5,000 Unit Tablet 5,000 Unit PO DAILY Aspir-Low (Aspirin) 81 Mg Tablet.dr 81 Mg PO DAILY Benazepril Hcl 20 Mg Tablet 20 Mg PO DAILY PRN Crestor (Rosuvastatin Calcium) 40 Mg Tablet 20 Mg PO HS Dexilant (Dexlansoprazole) 60 Mg Cap.dr.mp 60 Mg PO DAILY Allergies Allergies: Coded Allergies: adhesive tape (Verified Allergy, Severe, BANDAIDS - TEARS OFF SKIN, 01/31/20) hydrocodone (Verified Allergy, Severe, SEVERE DEPRESSION/ IRRITABILITY, 01/31/20) adhesive (Verified Adverse Reaction, Severe, 01/31/20) tears off skin amoxicillin (Verified Adverse Reaction, Intermediate, Nausea and Vomiting, 01/31/20) ciprofloxacin (Verified Adverse Reaction, Intermediate, Nausea, 01/31/20) codeine (Verified Adverse Reaction, Intermediate, Nausea, 01/31/20) sulfamethoxazole (Verified Adverse Reaction, Intermediate, Nausea, 01/31/20) trimethoprim (Verified Adverse Reaction, Intermediate, Nausea, 01/31/20) ondansetron (Verified Adverse Reaction, Mild, nausea, vomiting, 01/31/20) promethazine (Verified Adverse Reaction, Mild, nausea, vomiting, 01/31/20) ROS Review of System GENERAL: No history of weight change, weakness or fevers. SKIN: No bruising, hair changes or rashes. EYES: No blurred, double or loss of vision. NOSE AND THROAT: No history of nosebleeds, hoarseness or sore throat. HEART: Denies chest pain, denies palpitations. LUNGS: Denies cough, hemoptysis, wheezing or shortness of breath. GASTROINTESTINAL: Epigastric abdominal pain. Denies nausea, vomiting. GENITOURINARY: Denies dysuria, frequency, urgency, hematuria. NEUROLOGIC: Denies history of numbness, tingling, tremor or weakness. PSYCHIATRIC: Denies anxiety, denies depression. ENDOCRINE: No history of heat or cold intolerance, polyuria or polydipsia. EXTREMITIES: Denies muscle weakness, joint pain, pain on walking or stiffness. Physical Exam Physical Exam General: Alert, Oriented X3, Cooperative, No acute distress HEENT: PERRLA, EOMI Lungs: Clear to auscultation, Normal air movement Heart: Tachycardic, irregularly irregular, no murmurs Cardiovascular: S1, S2 Abdomen: Normal bowel sounds, Soft, No tenderness Extremities: No clubbing, No cyanosis Skin: No rashes, No significant lesion Neuro: Normal speech, Normal tone, Sensation intact Psych/Mental Status: Mental status NL, Mood NL Vitals Vitals Vital Signs Date Time Temp Pulse Resp B/P (MAP) Pulse Ox O2 Delivery O2 Flow Rate FiO2 02/07/20 06:00 110 18 168/74 (105) 97 Nasal Cannula 2.0 02/07/20 02:24 98.0 98.0 Labs Labs Laboratory Tests Test 02/07/20 03:24 White Blood Count 8.8 x10^3/uL (4.0-11.0) Red Blood Count 3.76 x10^6/uL (3.50-5.40) Hemoglobin 7.7 g/dL (12.0-15.5) Hematocrit 24.6 % (36.0-47.0) Mean Corpuscular Volume 65 fL (79-100) Mean Corpuscular Hemoglobin 21 pg (25-35) Mean Corpuscular Hemoglobin Concent 31 g/dL (31-37) Red Cell Distribution Width 18.5 % (11.5-14.5) Platelet Count 169 x10^3/uL (140-400) Neutrophils (%) (Auto) 83 % (31-73) Lymphocytes (%) (Auto) 7 % (24-48) Monocytes (%) (Auto) 9 % (0-9) Eosinophils (%) (Auto) 1 % (0-3) Basophils (%) (Auto) 1 % (0-3) Neutrophils # (Auto) 7.2 x10^3/uL (1.8-7.7) Lymphocytes # (Auto) 0.6 x10^3/uL (1.0-4.8) Monocytes # (Auto) 0.8 x10^3/uL (0.0-1.1) Eosinophils # (Auto) 0.1 x10^3/uL (0.0-0.7) Basophils # (Auto) 0.1 x10^3/uL (0.0-0.2) Sodium Level 137 mmol/L (136-145) Potassium Level 3.9 mmol/L (3.5-5.1) Chloride Level 102 mmol/L (98-107) Carbon Dioxide Level 25 mmol/L (21-32) Anion Gap 10 (6-14) Blood Urea Nitrogen 15 mg/dL (7-20) Creatinine 0.8 mg/dL (0.6-1.0) Estimated GFR (Cockcroft-Gault) 69.7 BUN/Creatinine Ratio 19 (6-20) Glucose Level 128 mg/dL (70-99) Calcium Level 8.6 mg/dL (8.5-10.1) Magnesium Level 1.8 mg/dL (1.8-2.4) Total Bilirubin 0.6 mg/dL (0.2-1.0) Aspartate Amino Transf (AST/SGOT) 27 U/L (15-37) Alanine Aminotransferase (ALT/SGPT) 49 U/L (14-59) Alkaline Phosphatase 94 U/L (46-116) Troponin I Quantitative 0.120 ng/mL (0.000-0.055) YJ-Zzz-A-Type Natriuretic Peptide 1600 pg/mL (0-449) Total Protein 6.5 g/dL (6.4-8.2) Albumin 2.8 g/dL (3.4-5.0) Albumin/Globulin Ratio 0.8 (1.0-1.7) Lipase 54 U/L (73-393) Laboratory Tests Test 02/07/20 03:24 White Blood Count 8.8 x10^3/uL (4.0-11.0) Red Blood Count 3.76 x10^6/uL (3.50-5.40) Hemoglobin 7.7 g/dL (12.0-15.5) Hematocrit 24.6 % (36.0-47.0) Mean Corpuscular Volume 65 fL (79-100) Mean Corpuscular Hemoglobin 21 pg (25-35) Mean Corpuscular Hemoglobin Concent 31 g/dL (31-37) Red Cell Distribution Width 18.5 % (11.5-14.5) Platelet Count 169 x10^3/uL (140-400) Neutrophils (%) (Auto) 83 % (31-73) Lymphocytes (%) (Auto) 7 % (24-48) Monocytes (%) (Auto) 9 % (0-9) Eosinophils (%) (Auto) 1 % (0-3) Basophils (%) (Auto) 1 % (0-3) Neutrophils # (Auto) 7.2 x10^3/uL (1.8-7.7) Lymphocytes # (Auto) 0.6 x10^3/uL (1.0-4.8) Monocytes # (Auto) 0.8 x10^3/uL (0.0-1.1) Eosinophils # (Auto) 0.1 x10^3/uL (0.0-0.7) Basophils # (Auto) 0.1 x10^3/uL (0.0-0.2) Sodium Level 137 mmol/L (136-145) Potassium Level 3.9 mmol/L (3.5-5.1) Chloride Level 102 mmol/L (98-107) Carbon Dioxide Level 25 mmol/L (21-32) Anion Gap 10 (6-14) Blood Urea Nitrogen 15 mg/dL (7-20) Creatinine 0.8 mg/dL (0.6-1.0) Estimated GFR (Cockcroft-Gault) 69.7 BUN/Creatinine Ratio 19 (6-20) Glucose Level 128 mg/dL (70-99) Calcium Level 8.6 mg/dL (8.5-10.1) Magnesium Level 1.8 mg/dL (1.8-2.4) Total Bilirubin 0.6 mg/dL (0.2-1.0) Aspartate Amino Transf (AST/SGOT) 27 U/L (15-37) Alanine Aminotransferase (ALT/SGPT) 49 U/L (14-59) Alkaline Phosphatase 94 U/L (46-116) Troponin I Quantitative 0.120 ng/mL (0.000-0.055) WE-Mrd-T-Type Natriuretic Peptide 1600 pg/mL (0-449) Total Protein 6.5 g/dL (6.4-8.2) Albumin 2.8 g/dL (3.4-5.0) Albumin/Globulin Ratio 0.8 (1.0-1.7) Lipase 54 U/L (73-393) Images Images CTA chest with contrast dated 02/07/2020. No comparison CLINICAL INDICATION: Chest pain and shortness of breath. TECHNIQUE: Contiguous axial imaging the chest performed following the intravenous administration of 100 cc Omnipaque 350. Study was performed as dedicated PE protocol with thin cut coronal MIPS 3-D reconstruction. One or more of the following individualized dose reduction techniques were utilized for this examination: 1. Automated exposure control 2. Adjustment of the mA and/or kV according to patient size 3. Use of iterative reconstruction technique. FINDINGS: Contrast bolus is adequate. No evidence of central, lobar or segmental pulmonary embolus. Subsegmental branches are not well evaluated based on technique. Heart size is upper limits of normal. No pericardial effusion. Coronary artery calcifications. No mediastinal, hilar or axillary lymphadenopathy. Thyroid gland is unremarkable. Central airways are patent. Lungs are clear. No consolidation or pleural effusion. There are a few scattered calcified granuloma. Mildly prominent reticular nodular markings bilaterally. No pleural effusion or pneumothorax. Limited images of upper abdomen are unremarkable. Small hiatal hernia. No acute bony abnormality. Multilevel spondylosis. IMPRESSION: 1. No evidence of central, lobar or segmental pulmonary embolus. 2. Prominent reticular nodular markings throughout both lungs, nonspecific. Consider acute or chronic inflammatory process or atypical infection. 3. Coronary artery calcifications. 4. Small hiatal hernia VTE Prophylaxis Ordered VTE Prophylaxis Devices: No VTE Pharmacological Prophylaxi: Yes Assessment/Plan Assessment/Plan Unstable angina GERD Anemia Malnutrition Plan: Patient symptoms are consistent with gastroesophageal reflux disease, but she does have significant cardiovascular risk factors as well. Troponin on admission 0.120, BNP 1600. Consultation placed to cardiology, continue trending troponins. CTA negative for PE, but does note coronary artery calcifications and possible atypical infectious process. We will continue work-up with procalcitonin and CRP Resume home medication FEN - Cardiac diet PPX - Eliquis FULL CODE Dispo - inpatient for above Justifications for Admission Other Justification GAURANG GARZA MD Feb 07, 2020 07:00
[2020-02-07] MEDS ORDERED: PANTOPRAZOLE 40 MG TABLET.DR. PO SCH (07:30)
[2020-02-07 08:37] LABS: C-REACTIVE PROTEIN 68.7 mg/L (0-3.3)
[2020-02-07] MEDS ORDERED: APIXABAN 5 MG TABLET. PO SCH (09:00)
[2020-02-07] MEDS ORDERED: ASPIRIN ENTERIC COATED 81 MG TABLET.DR. PO SCH (09:00)
[2020-02-07] MEDS ORDERED: LISINOPRIL 20 MG TABLET PO SCH (09:00)
[2020-02-07] MEDS ORDERED: LUBIPROSTONE 24 MCG CAPSULE PO SCH (09:00)
[2020-02-07] MEDS ORDERED: METOPROLOL SUCC 24HR ER 25 MG TAB.ER.24H. PO SCH (09:00)
[2020-02-07 09:25] LABS: CHOLESTEROL/HDL RATIO 2.5
--- NOTE | 2020-02-07 09:36 | PDOC2 ---
BLADIMIR ENRIQUEZ PRESIDENT AND CHIEF OPERATING OFFICER 02/07/20 0936: CARDIAC CONSULT DATE OF CONSULT Date of Consult DATE: 02/07/20 TIME: 09:18 REASON FOR CONSULT Reason for Consult: Chest pain REFERRING PHYSICIAN Referring Physician: Dr. Burgess SOURCE Source: Chart review, Patient HISTORY OF PRESENT ILLNESS HISTORY OF PRESENT ILLNESS This is a 74 yo female who presented secondary to mid-epigastric burning sensation in her central chest. Patient underwent total knee replacement 01/31/20. Reports postop constipation due to Percocet, which has worsened her acid reflux. Has not had a BM in multiple days. Was unable to sleep overnight due to burning in her throat and central chest. Was intolerable. Decided to come to the ED for treatment. Denies any associated dizziness, diaphoresis, palpitations, or nausea/vomiting. Would like pain medication that does not worsen constipation. PAST MEDICAL HISTORY Cardiovascular: AFIB, HTN, Hyperlipidemia, Aortic stenosis CENTRAL NERVOUS SYSTEM: CVA GI: Diverticulosis, GERD, Irritable bowel disease Heme/Onc: Cancer (breast ) Psych: Anxiety Musculoskeletal: Osteoarthritis PAST SURGICAL HISTORY Past Surgical History: Appendectomy, Cholecystectomy, Other (right breast lumpectomy ) FAMILY HISTORY Family History: Heart Disease, High Cholestrol, Hypertension SOCIAL HISTORY Smoke: No ALCOHOL: none Drugs: None Lives: with Family CURRENT MEDICATIONS CURRENT MEDICATIONS Current Medications Medications (Trade) Dose Ordered Sig/[place] Route PRN Reason Start Time Stop Time Status Last Admin Dose Admin Multi-Ingredient Mouthwash/Gargle (Gi Cocktail) 20 ml 1X ONCE SWSW 02/07/20 03:30 02/07/20 03:31 DC 02/07/20 03:51 Famotidine (Pepcid Vial) 20 mg 1X ONCE IVP 02/07/20 03:30 02/07/20 03:31 DC 02/07/20 03:52 Methylnaltrexone [place] (Relistor) 12 mg 1X ONCE SQ 02/07/20 03:30 02/07/20 03:31 DC 02/07/20 03:52 Iohexol (Omnipaque 350 Mg/ml) 100 ml 1X ONCE IV 02/07/20 04:30 02/07/20 04:31 DC 02/07/20 04:50 Morphine Sulfate (Morphine Sulfate) 4 mg 1X ONCE IV 02/07/20 05:00 02/07/20 05:01 DC 02/07/20 04:51 ALLERGIES ALLERGIES: Coded Allergies: ciprofloxacin (Verified Adverse Reaction, Intermediate, Nausea, 01/31/20) sulfamethoxazole (Verified Adverse Reaction, Intermediate, Nausea, 01/31/20) trimethoprim (Verified Adverse Reaction, Intermediate, Nausea, 01/31/20) ROS Review of System 14 point ROS conducted with pertinent positives noted above in HPI PHYSICAL EXAM General: Alert, Oriented X3, Cooperative, No acute distress HEENT: Atraumatic, Mucous membr. moist/pink Lungs: Clear to auscultation Heart: Regular rate (SR/ST) Abdomen: Soft, No tenderness Extremities: No edema, Other (drsg intact to right knee ) Skin: No breakdown Neuro: Sensation intact Psych/Mental Status: Mental status NL, Other (anxious ) MUSCULOSKELETAL: Osteoarthritic changes both hands VITALS/I&O VITALS/I&O: Vital Signs Date Time Temp Pulse Resp B/P (MAP) Pulse Ox O2 Delivery O2 Flow Rate FiO2 02/07/20 06:00 110 18 168/74 (105) 97 Nasal Cannula 2.0 02/07/20 02:24 98.0 98.0 LABS Lab: Laboratory Tests Test 02/07/20 03:04 02/07/20 03:24 Iron Level 15 ug/dL (50-170) L Total Iron Binding Capacity 351 ug/dL (250-450) Iron Saturation 4 % (15-34) L Ferritin 46 ng/mL (8-252) C-Reactive Protein, Quantitative 68.7 mg/L (0-3.3) H Procalcitonin < 0.10 ng/mL (0.00-0.10) White Blood Count 8.8 x10^3/uL (4.0-11.0) Red Blood Count 3.76 x10^6/uL (3.50-5.40) Hemoglobin 7.7 g/dL (12.0-15.5) L Hematocrit 24.6 % (36.0-47.0) L Mean Corpuscular Volume 65 fL (79-100) L Mean Corpuscular Hemoglobin 21 pg (25-35) L Mean Corpuscular Hemoglobin Concent 31 g/dL (31-37) Red Cell Distribution Width 18.5 % (11.5-14.5) H Platelet Count 169 x10^3/uL (140-400) Neutrophils (%) (Auto) 83 % (31-73) H Lymphocytes (%) (Auto) 7 % (24-48) L Monocytes (%) (Auto) 9 % (0-9) Eosinophils (%) (Auto) 1 % (0-3) Basophils (%) (Auto) 1 % (0-3) Neutrophils # (Auto) 7.2 x10^3/uL (1.8-7.7) Lymphocytes # (Auto) 0.6 x10^3/uL (1.0-4.8) L Monocytes # (Auto) 0.8 x10^3/uL (0.0-1.1) Eosinophils # (Auto) 0.1 x10^3/uL (0.0-0.7) Basophils # (Auto) 0.1 x10^3/uL (0.0-0.2) Platelet Estimate Adequate (ADEQUATE) Polychromasia Slight Hypochromasia Mod Anisocytosis Slight Microcytosis Mod Target Cells Occ Tear Drop Cells Occ Ovalocytes Few Sodium Level 137 mmol/L (136-145) Potassium Level 3.9 mmol/L (3.5-5.1) Chloride Level 102 mmol/L (98-107) Carbon Dioxide Level 25 mmol/L (21-32) Anion Gap 10 (6-14) Blood Urea Nitrogen 15 mg/dL (7-20) Creatinine 0.8 mg/dL (0.6-1.0) Estimated GFR (Cockcroft-Gault) 69.7 BUN/Creatinine Ratio 19 (6-20) Glucose Level 128 mg/dL (70-99) H Calcium Level 8.6 mg/dL (8.5-10.1) Magnesium Level 1.8 mg/dL (1.8-2.4) Total Bilirubin 0.6 mg/dL (0.2-1.0) Aspartate Amino Transferase (AST) 27 U/L (15-37) Alanine Aminotransferase (ALT) 49 U/L (14-59) Alkaline Phosphatase 94 U/L (46-116) Troponin I Quantitative 0.120 ng/mL (0.000-0.055) NT-Tsf-M-Type Natriuretic Peptide 1600 pg/mL (0-449) H Total Protein 6.5 g/dL (6.4-8.2) Albumin 2.8 g/dL (3.4-5.0) L Albumin/Globulin Ratio 0.8 (1.0-1.7) L Lipase 54 U/L (73-393) L Laboratory Tests 02/07/20 03:24 Laboratory Tests 02/07/20 03:24 ECHOCARDIOGRAM ECHOCARDIOGRAM <Conclusion> The left ventricle is normal size. The left ventricular systolic function is normal and the ejection fraction is within normal range. LV ejection fraction of 55 to 60%. There is mild concentric left ventricular hypertrophy. The aortic valve is heavily calcified. Trace to mild aortic regurgitation. There is moderately severe valvular aortic stenosis. Calculated aortic valve area is 0.9 cm2 with maximum pressure gradient of 70mmHg and mean pressure gradient of 45mmHg. Doppler and Color-flow revealed trace mitral regurgitation. Trace tricuspid regurgitation. The pulmonary artery systolic pressure is estimated at 20-25 mmHg. DATE: 01/12/20 STRESS TEST STRESS TEST Conclusion 1. No evidence of EKG changes with stress testing. 2. Normal perfusion at stress/rest. 3. Low risk study. 4. EF > 60%. DATE: 03/09/18 1312 ASSESSMENT/PLAN ASSESSMENT/PLAN 1. Chest, epigastric pain. atypical and most probably GI 2. Mild troponin elevation; initial 0.1. Most probably type II, demand ischemia. Recent echo with preserved LV systolic function. 3. GERD worsened secondary to constipation; PPI 4. S/p right TKA 01/31/20 5. Constipation; exacerbated by opioid use. as per IM 6. CAD; CT chest with coronary calcifications 7. PAFIB; presently SR/ST. on Eliquis for stroke prophylaxis 8. Hypertension; mildly elevated 9. Hyperlipidemia; statin 10. ; moderately severe per recent echo 11. Anemia Recommendation ASA Trend troponin, lipids Continue statin Resume metoprolol, Cardizem for rate control Hold Eliquis for now Probable outpatient ischemic evaluation Consider outpatient referral for TAVR for Supportive care CHRISTOPHER MARCELINO MD 02/07/20 2001: CARDIAC CONSULT ASSESSMENT/PLAN ASSESSMENT/PLAN Patient seen and examined. Agree with M[employer]IAL [employer] INSTRUCTOR's assessment and plan. CP atypical and most prob GI etiology Slight trop elevation prob demand ischemia PAF maintaining SR Plan outpatient referral for TAVR Thank you for your consultation BLADIMIR ENRIQUEZ APRN Feb 07, 2020 09:36 CHRISTOPHER MARCELINO MD Feb 07, 2020 20:01
[2020-02-07] MEDS ORDERED: FAMO40TA4 PO (10:09)
[2020-02-07] MEDS ORDERED: POLYETHYLENE GLYCOL 3350 17 GM PACKET. PO PRN (10:45)
[2020-02-07 11:00] VITALS: BP 152/61
[2020-02-07] MEDS ORDERED: MORPHINE SULFATE 2 MG/ML VIAL. IV PRN (13:15)
--- NOTE | 2020-02-07 13:15 | NUR ---
SS following for discharge planning. SS reviewed pt chart and discussed with pt RN. Pt is from home with spouse and is currently on room air. Cardiology following. SS will continue to follow for discharge planning.
[2020-02-07 15:00] VITALS: BP 138/57
[2020-02-07] MEDS ORDERED: traMADol 50 MG TABLET PO PRN (15:30)
[2020-02-07] MEDS ORDERED: POLY17PO28 PO (15:41)
--- NOTE | 2020-02-07 15:45 | PDOC3 ---
Discharge Summary Visit Information Date of Admission: Feb 07, 2020 Date of Discharge: Feb 07, 2020 Final Diagnosis Problems Medical Problems: (1) Chest pain Status: Acute (2) Constipation Status: Acute (3) GERD (gastroesophageal reflux disease) Status: Acute Brief Hospital Course Allergies Allergies Coded Allergies Type Severity Reaction Last Updated Verified ciprofloxacin Adverse Reaction Intermediate Nausea 01/31/20 Yes sulfamethoxazole Adverse Reaction Intermediate Nausea 01/31/20 Yes trimethoprim Adverse Reaction Intermediate Nausea 01/31/20 Yes Vital Signs Vital Signs Date Time Temp Pulse Resp B/P (MAP) Pulse Ox O2 Delivery O2 Flow Rate FiO2 02/07/20 13:23 Room Air 02/07/20 11:00 98.9 110 16 152/61 (91) 93 98.9 02/07/20 08:00 2.0 Lab Results Laboratory Tests Test 02/07/20 03:04 02/07/20 03:24 02/07/20 09:10 02/07/20 13:00 Iron Level 15 ug/dL (50-170) Total Iron Binding Capacity 351 ug/dL (250-450) Iron Saturation 4 % (15-34) Ferritin 46 ng/mL (8-252) C-Reactive Protein, Quantitative 68.7 mg/L (0-3.3) Triglycerides Level 90 mg/dL (0-150) Cholesterol Level 126 mg/dL (0-200) LDL Cholesterol, Calculated 57 mg/dL (0-100) VLDL Cholesterol, Calculated 18 mg/dL (0-40) Non-HDL Cholesterol Calculated 75 mg/dL (0-129) HDL Cholesterol 51 mg/dL (40-60) Cholesterol/HDL Ratio 2.5 Procalcitonin < 0.10 ng/mL (0.00-0.10) White Blood Count 8.8 x10^3/uL (4.0-11.0) Red Blood Count 3.76 x10^6/uL (3.50-5.40) Hemoglobin 7.7 g/dL (12.0-15.5) Hematocrit 24.6 % (36.0-47.0) Mean Corpuscular Volume 65 fL (79-100) Mean Corpuscular Hemoglobin 21 pg (25-35) Mean Corpuscular Hemoglobin Concent 31 g/dL (31-37) Red Cell Distribution Width 18.5 % (11.5-14.5) Platelet Count 169 x10^3/uL (140-400) Neutrophils (%) (Auto) 83 % (31-73) Lymphocytes (%) (Auto) 7 % (24-48) Monocytes (%) (Auto) 9 % (0-9) Eosinophils (%) (Auto) 1 % (0-3) Basophils (%) (Auto) 1 % (0-3) Neutrophils # (Auto) 7.2 x10^3/uL (1.8-7.7) Lymphocytes # (Auto) 0.6 x10^3/uL (1.0-4.8) Monocytes # (Auto) 0.8 x10^3/uL (0.0-1.1) Eosinophils # (Auto) 0.1 x10^3/uL (0.0-0.7) Basophils # (Auto) 0.1 x10^3/uL (0.0-0.2) Platelet Estimate Adequate (ADEQUATE) Polychromasia Slight Hypochromasia Mod Anisocytosis Slight Microcytosis Mod Target Cells Occ Tear Drop Cells Occ Ovalocytes Few Sodium Level 137 mmol/L (136-145) Potassium Level 3.9 mmol/L (3.5-5.1) Chloride Level 102 mmol/L (98-107) Carbon Dioxide Level 25 mmol/L (21-32) Anion Gap 10 (6-14) Blood Urea Nitrogen 15 mg/dL (7-20) Creatinine 0.8 mg/dL (0.6-1.0) Estimated GFR (Cockcroft-Gault) 69.7 BUN/Creatinine Ratio 19 (6-20) Glucose Level 128 mg/dL (70-99) Calcium Level 8.6 mg/dL (8.5-10.1) Magnesium Level 1.8 mg/dL (1.8-2.4) Total Bilirubin 0.6 mg/dL (0.2-1.0) Aspartate Amino Transf (AST/SGOT) 27 U/L (15-37) Alanine Aminotransferase (ALT/SGPT) 49 U/L (14-59) Alkaline Phosphatase 94 U/L (46-116) Troponin I Quantitative 0.120 ng/mL (0.000-0.055) 0.326 ng/mL (0.000-0.055) 0.298 ng/mL (0.000-0.055) DT-Kag-T-Type Natriuretic Peptide 1600 pg/mL (0-449) Total Protein 6.5 g/dL (6.4-8.2) Albumin 2.8 g/dL (3.4-5.0) Albumin/Globulin Ratio 0.8 (1.0-1.7) Lipase 54 U/L (73-393) Laboratory Tests Test 02/07/20 03:04 02/07/20 03:24 02/07/20 09:10 02/07/20 13:00 Iron Level 15 ug/dL (50-170) Total Iron Binding Capacity 351 ug/dL (250-450) Iron Saturation 4 % (15-34) Ferritin 46 ng/mL (8-252) C-Reactive Protein, Quantitative 68.7 mg/L (0-3.3) Triglycerides Level 90 mg/dL (0-150) Cholesterol Level 126 mg/dL (0-200) LDL Cholesterol, Calculated 57 mg/dL (0-100) VLDL Cholesterol, Calculated 18 mg/dL (0-40) Non-HDL Cholesterol Calculated 75 mg/dL (0-129) HDL Cholesterol 51 mg/dL (40-60) Cholesterol/HDL Ratio 2.5 Procalcitonin < 0.10 ng/mL (0.00-0.10) White Blood Count 8.8 x10^3/uL (4.0-11.0) Red Blood Count 3.76 x10^6/uL (3.50-5.40) Hemoglobin 7.7 g/dL (12.0-15.5) Hematocrit 24.6 % (36.0-47.0) Mean Corpuscular Volume 65 fL (79-100) Mean Corpuscular Hemoglobin 21 pg (25-35) Mean Corpuscular Hemoglobin Concent 31 g/dL (31-37) Red Cell Distribution Width 18.5 % (11.5-14.5) Platelet Count 169 x10^3/uL (140-400) Neutrophils (%) (Auto) 83 % (31-73) Lymphocytes (%) (Auto) 7 % (24-48) Monocytes (%) (Auto) 9 % (0-9) Eosinophils (%) (Auto) 1 % (0-3) Basophils (%) (Auto) 1 % (0-3) Neutrophils # (Auto) 7.2 x10^3/uL (1.8-7.7) Lymphocytes # (Auto) 0.6 x10^3/uL (1.0-4.8) Monocytes # (Auto) 0.8 x10^3/uL (0.0-1.1) Eosinophils # (Auto) 0.1 x10^3/uL (0.0-0.7) Basophils # (Auto) 0.1 x10^3/uL (0.0-0.2) Platelet Estimate Adequate (ADEQUATE) Polychromasia Slight Hypochromasia Mod Anisocytosis Slight Microcytosis Mod Target Cells Occ Tear Drop Cells Occ Ovalocytes Few Sodium Level 137 mmol/L (136-145) Potassium Level 3.9 mmol/L (3.5-5.1) Chloride Level 102 mmol/L (98-107) Carbon Dioxide Level 25 mmol/L (21-32) Anion Gap 10 (6-14) Blood Urea Nitrogen 15 mg/dL (7-20) Creatinine 0.8 mg/dL (0.6-1.0) Estimated GFR (Cockcroft-Gault) 69.7 BUN/Creatinine Ratio 19 (6-20) Glucose Level 128 mg/dL (70-99) Calcium Level 8.6 mg/dL (8.5-10.1) Magnesium Level 1.8 mg/dL (1.8-2.4) Total Bilirubin 0.6 mg/dL (0.2-1.0) Aspartate Amino Transf (AST/SGOT) 27 U/L (15-37) Alanine Aminotransferase (ALT/SGPT) 49 U/L (14-59) Alkaline Phosphatase 94 U/L (46-116) Troponin I Quantitative 0.120 ng/mL (0.000-0.055) 0.326 ng/mL (0.000-0.055) 0.298 ng/mL (0.000-0.055) WP-Omk-C-Type Natriuretic Peptide 1600 pg/mL (0-449) Total Protein 6.5 g/dL (6.4-8.2) Albumin 2.8 g/dL (3.4-5.0) Albumin/Globulin Ratio 0.8 (1.0-1.7) Lipase 54 U/L (73-393) Brief Hospital Course Ms. Lu is a 74 old female who presented with atypical chest pain. Troponins were slightly elevated, but remained stable. Consultations placed to cardiology. Symptoms consistent with demand ischemia. Consultation was also placed to orthopedic surgery to evaluate patient's right knee status post surgery, as she missed her outpatient orthopedic appointment today. Discharge Information Condition at Discharge: Stable Follow Up: Weeks Disposition/Orders: D/C to Home Scheduled Apixaban (Eliquis) 5 Mg Tablet, 5 MG PO BID for Atrial fibrillation for 30 Days, #60 Ref 11 Prescribed by: MELVA ZUNIGA MD on 02/01/18 0757 Last Action: Continued on 02/07/20657 by GAURANG GARZA MD Aspirin (Aspir-Low) 81 Mg Tablet.dr, 81 MG PO DAILY for TIA, (Reported) Entered as Reported by: JORGITO CHAMBERLAIN on 01/26/18 0950 Last Action: Continued on 02/07/20657 by GAURANG GARZA MD Cholecalciferol (Vitamin D3) (Vitamin D3) 5,000 Unit Tablet, 5,000 UNIT PO DAILY for low vit D level, (Reported) Entered as Reported by: CHAYO ARREOLA on 01/30/18 0604 Last Action: HELD on 02/07/20657 by GAURANG GARZA MD Dexlansoprazole (Dexilant) 60 Mg Cap., 60 MG PO DAILY for Gerd, (Reported) Entered as Reported by: JORGITO CHAMBERLAIN on 04/27/15 1506 Last Action: Converted on 02/07/20657 by GAURANG GARZA MD Diltiazem HCl (Diltiazem 24Hr Cd) 240 Mg Cap.er.24h, 240 MG PO DAILY for blood pressure control, (Reported) Entered as Reported by: TORO FRAZIER on 01/06/19945 Last Action: Continued on 02/07/20657 by GAURANG GARZA MD Famotidine (Famotidine) 40 Mg Tablet, 1 TAB PO QHS for gerd, (Reported) Entered as Reported by: DOMINGO MATAMOROS on 02/07/20 100 Last Action: New Order on 02/07/201008 by DOMINGO MATAMOROS Lactobacillus Acidophilus (Probiotic) 1 Each Capsule, 1 EACH PO DAILY for colon health, (Reported) Entered as Reported by: TORO FRAZIER on 01/06/19945 Last Action: HELD on 02/07/20657 by GAURANG GARZA MD Lubiprostone (Amitiza) 8 Mcg Capsule, 8 MCG PO DAILY for treat constipation, (Reported) Entered as Reported by: TORO FRAZIER on 01/06/19945 Last Action: Converted on 02/07/20657 by GAURANG GARZA MD Metoprolol Succinate (Toprol XL) 50 Mg Tab.er.24h, 25 MG PO DAILY for FOR HYPERTENSION, (Reported) Entered as Reported by: TORO FRAZIER on 01/06/19945 Last Action: Continued on 02/07/20657 by GAURANG GARZA MD Rosuvastatin Calcium (Crestor) 40 Mg Tablet, 20 MG PO HS for HLD, (Reported) Entered as Reported by: JORGITO CHAMBERLAIN on 04/27/15 151 Last Action: Converted on 02/07/20657 by GAURANG GARZA MD [domperidone] , 10 MG PO BID for nausea/stomach upset, (Reported) Entered as Reported by: TORO FRAZIER on 01/06/19945 Last Action: HELD on 02/07/20657 by GAURANG GARZA MD Scheduled PRN Benazepril Hcl (Benazepril Hcl) 20 Mg Tablet, 20 MG PO DAILY PRN for HTN, (Reported) Entered as Reported by: JORGITO CHAMBERLAIN on 01/26/18 0950 Last Action: Converted on 02/07/20657 by GAURANG GARZA MD Oxycodone/Apap 5-325 (Percocet 5-325 Mg Tablet ) 1 Each Tablet, 1-2 TAB PO Q4- 6HRS PRN for PAIN MDD 2 Tablet(s) for 30 Days, #60 Ref 0 (Reported) Entered as Reported by: WOOD MCINTOSH on 02/02/20 1406 Polyethylene Glycol 3350 (Polyethylene Glycol 3350) 17 Gm Powd.pack, 17 GM PO PRN DAILY PRN for CONSTIPATION, #30 Prescribed by: GAURANG GARZA MD on 02/07/20 1541 Justicifation of Admission Dx: Justifications for Admission: Justification of Admission Dx: Yes GAURANG GARZA MD Feb 07, 2020 15:44
--- NOTE | 2020-02-07 16:58 | NUR ---
Discharge Note: ANILA BATES [address] [place] [address] Discharge instructions and discharge home medications reviewed with Patient and a copy given. All questions have been answered and understanding verbalized. The following instructions and handouts were given: discharge instructions, constipation info, CP info, gerd info, miralax info Discontinued lines and drains: Peripheral IV intact. Patient discharged to Home or Self Care with Spouse via Wheelchair at 1658.
[2020-02-07] MEDS ORDERED: ATORVASTATIN CALCIUM 40 MG TABLET. PO SCH (21:00)
== END 2020-02-07 16:58 | disposition home or self-care (01) | DRG 313 ==
LOC: ER 02:21 → ED HOLD 06:19 → 2 NORTH 06:58
PROVIDERS: ADMIT Internal Medicine; ATTEND Internal Medicine
DX: R07.89 Other chest pain (principal); E46 Unspecified protein-calorie malnutrition; I24.8 Other forms of acute ischemic heart disease; I25.110 Atherosclerotic heart disease of native coronary artery with unstable angina pectoris; D64.9 Anemia, unspecified; E78.00 Pure hypercholesterolemia, unspecified; E78.5 Hyperlipidemia, unspecified; I10 Essential (primary) hypertension; I35.0 Nonrheumatic aortic (valve) stenosis; I48.0 Paroxysmal atrial fibrillation; K21.9 Gastro-esophageal reflux disease without esophagitis; K44.9 Diaphragmatic hernia without obstruction or gangrene; K59.00 Constipation, unspecified; Z82.49 Family history of ischemic heart disease and other diseases of the circulatory system; Z85.3 Personal history of malignant neoplasm of breast; Z86.73 Personal history of transient ischemic attack (TIA), and cerebral infarction without residual deficits; Z90.49 Acquired absence of other specified parts of digestive tract; Z90.710 Acquired absence of both cervix and uterus; Z96.651 Presence of right artificial knee joint; F41.9 Anxiety disorder, unspecified; M19.90 Unspecified osteoarthritis, unspecified site; Z68.31 Body mass index [BMI] 31.0-31.9, adult
CPT/HCPCS: 36415; 71275; 74022; 80053; 80061; 82728; 83540; 83550; 83690; 83735; 83880; 84145; 84484; 85025; 86140; 93005; J2212; J2270; J3490; Q9967; G0378

== ENCOUNTER 2020-08-10 00:31 | Inpatient (IN) | payer BC, MEDICARE ==
[~2020-08-10] VITALS: Ht 162.6 cm; Wt 80.8 kg
[~2020-08-10 00:31] MED LIST changes: -CHLO1CAP50 PO; +CHLO1CAP56 PO; +FAMO40TA4 PO; +POLY17PO52 PO
[2020-08-10] MEDS ORDERED: IV NORMAL SALINE 1000ML BAG 1,000 ML IV SCH (00:45)
[2020-08-10 01:04] LABS: BASO # 0.1 x10^3/uL (0.0-0.2); BASO % 1 % (0-3); EOS # 0.1 x10^3/uL (0.0-0.7); EOS % 1 % (0-3); HEMATOCRIT 27.7 % (36.0-47.0); HEMOGLOBIN 8.3 g/dL (12.0-15.5); LYMPH # 1.4 x10^3/uL (1.0-4.8); LYMPH % 17 % (24-48); MEAN CORPUSCULAR HEMOGLOBIN 18 pg (25-35); MEAN CORPUSCULAR HGB CONC 30 g/dL (31-37); MEAN CORPUSCULAR VOLUME 60 fL (79-100); MONO # 0.9 x10^3/uL (0.0-1.1); MONO % 11 % (0-9); NEUT # 5.8 x10^3/uL (1.8-7.7); NEUT % 70 % (31-73); PLATELET COUNT 194 x10^3/uL (140-400); RED BLOOD COUNT 4.61 x10^6/uL (3.50-5.40); RED CELL DISTRIBUTION WIDTH 19.1 % (11.5-14.5); WHITE BLOOD COUNT 8.3 x10^3/uL (4.0-11.0)
[2020-08-10 01:17] LABS: CALCIUM 8.7 mg/dL (8.5-10.1); CREATININE 0.8 mg/dL (0.6-1.0); GFR 69.7; POTASSIUM 4.2 mmol/L (3.5-5.1)
[2020-08-10 01:22] LABS: ALBUMIN 3.5 g/dL (3.4-5.0); DIRECT BILIRUBIN 0.1 mg/dL (0.0-0.2); MAGNESIUM 2.2 mg/dL (1.8-2.4); TOTAL BILIRUBIN 0.3 mg/dL (0.2-1.0)
[2020-08-10 01:31] LABS: PLT ESTIMATE ADEQUATE (ADEQUATE)
[2020-08-10 01:33] LABS: ANISOCYTOSIS SLIGHT; HYPOCHROMIA MARKED; MICROCYTOSIS MARKED; POLYCHROMASIA SLIGHT
--- NOTE | 2020-08-10 01:33 | PHYS DOC ---
Past Medical History Past Medical History: Cancer, CVA, Diverticulitis, Diverticulosis, GERD, High Cholesterol, Hypertension, Other Additional Past Medical Histor: BREAST & EAR CA, AORTIC STENOSIS Past Surgical History: Appendectomy, Cancer Surgery, Cholecystectomy, Hysterectomy, Other Additional Past Surgical Histo: BREAST LUMPECTOMY, EAR CA REMOVAL, EXP LAP, LEFT KNEE AND LEFT FOOT REPAIR Smoking Status: Never Smoker Alcohol Use: None Drug Use: None General Adult EDM: Chief Complaint: Palpitations HPI: HPI: 74-year-old female past medical history significant for CVA, A. fib on Eliquis (x2yrs) with aortic stenosis, hypertension, hyperlipidemia, presents to the ED with her daughter, (patient consents to his/her/their knowledge and involvement in pts' medical care), with complaints of " he went to bed and did not feel right around 1030 11 PM with my TV on." States she was having "a lot of heartburn," and describes left-sided chest pressure with associated shaking, shortness of breath and "heart beating really fast." Patient states she is concerned because she saw Dr. Rubin a few weeks ago and was told her aortic valve is closing and would need "a stent" to open it. Is pending an appointment with a specialist at [facility]. Reports her symptoms resolved shortly after arriving to the emergency department-has no active chest pain. Review of Systems: Review of Systems: Constitutional: Denies fever or chills. [] Eyes: Denies change in visual acuity. [] HENT: Denies nasal congestion or sore throat. [] Respiratory: Denies cough or increased work of breathing Cardiovascular: Denies syncope or radiating chest pain GI: Denies abdominal pain, nausea, vomiting, : Denies dysuria or hematuria Musculoskeletal: Denies back pain or joint pain. [] Integument: Denies rash or blistering lesions Neurologic: Denies headache, focal weakness or sensory changes. [] Endocrine: Denies polyuria or polydipsia. [] Lymphatic: Denies swollen glands. [] Psychiatric: Denies depression or anxiety. [] Heart Score: C/O Chest Pain: No HEART Score for Chest Pain: HEART Score for Chest Pain Response (Comments) Value History Slighlty/Non-Suspicious 0 ECG Normal 0 Age > 65 2 Risk Factors >3 Risk Factors or Hx CAD 2 Troponin < Normal Limit 0 Total 4 Risk Factors: Risk Factors: DM, Current or recent (<one month) smoker, HTN, HLP, family history of CAD, obesity. Risk Scores: Score 0 - 3: 2.5% MACE over next 6 weeks - Discharge Home Score 4 - 6: 20.3% MACE over next 6 weeks - Admit for Clinical Observation Score 7 - 10: 72.7% MACE over next 6 weeks - Early Invasive Strategies Current Medications: Current Medications Medications (Trade) Dose Ordered Sig/[place] Start Time Stop Time Status Last Admin Dose Admin Sodium Chloride 1,000 ml @ 1,000 mls/hr Q1H 08/10/20 00:45 08/10/20 01:44 08/10/20 01:00 1,000 MLS/HR Allergies: Allergies: Allergies Coded Allergies Type Severity Reaction Last Updated Verified ciprofloxacin Adverse Reaction Intermediate Nausea 01/31/20 Yes sulfamethoxazole Adverse Reaction Intermediate Nausea 01/31/20 Yes trimethoprim Adverse Reaction Intermediate Nausea 01/31/20 Yes Physical Exam: PE: Constitutional: Well developed, well nourished, no acute distress, non-toxic appearance. HENT: Normocephalic, atraumatic, Eyes: EOMI, conjunctiva normal, no discharge. Neck: Normal range of motion, supple, Cardiovascular: S1/2 present, regular rhythm Lungs & Thorax: Speaking in full sentences, bilateral equal chest rise, no tachypnea or increased work of breathing Abdomen: soft, no tenderness, Skin: Warm, dry, no erythema, no rash. [] Back: No tenderness, no CVA tenderness. [] Extremities: No tenderness, no cyanosis, no lower extremity edema Neurologic: Alert and oriented X 3, normal motor function, normal sensory function, no focal deficits noted. [] Psychologic: Affect normal, judgement normal, mood normal. [] Current Patient Data: Labs: Laboratory Tests Test 08/10/20 00:57 White Blood Count 8.3 x10^3/uL (4.0-11.0) Red Blood Count 4.61 x10^6/uL (3.50-5.40) Hemoglobin 8.3 g/dL (12.0-15.5) L Hematocrit 27.7 % (36.0-47.0) L Mean Corpuscular Volume 60 fL (79-100) L Mean Corpuscular Hemoglobin 18 pg (25-35) L Mean Corpuscular Hemoglobin Concent 30 g/dL (31-37) L Red Cell Distribution Width 19.1 % (11.5-14.5) H Platelet Count 194 x10^3/uL (140-400) Neutrophils (%) (Auto) 70 % (31-73) Lymphocytes (%) (Auto) 17 % (24-48) L Monocytes (%) (Auto) 11 % (0-9) H Eosinophils (%) (Auto) 1 % (0-3) Basophils (%) (Auto) 1 % (0-3) Neutrophils # (Auto) 5.8 x10^3/uL (1.8-7.7) Lymphocytes # (Auto) 1.4 x10^3/uL (1.0-4.8) Monocytes # (Auto) 0.9 x10^3/uL (0.0-1.1) Eosinophils # (Auto) 0.1 x10^3/uL (0.0-0.7) Basophils # (Auto) 0.1 x10^3/uL (0.0-0.2) Platelet Estimate Pending Sodium Level 142 mmol/L (136-145) Potassium Level 4.2 mmol/L (3.5-5.1) Chloride Level 105 mmol/L (98-107) Carbon Dioxide Level 24 mmol/L (21-32) Anion Gap 13 (6-14) Blood Urea Nitrogen 21 mg/dL (7-20) H Creatinine 0.8 mg/dL (0.6-1.0) Estimated GFR (Cockcroft-Gault) 69.7 Glucose Level 106 mg/dL (70-99) H Calcium Level 8.7 mg/dL (8.5-10.1) Magnesium Level 2.2 mg/dL (1.8-2.4) Total Bilirubin 0.3 mg/dL (0.2-1.0) Direct Bilirubin 0.1 mg/dL (0.0-0.2) Aspartate Amino Transferase (AST) 17 U/L (15-37) Alanine Aminotransferase (ALT) 24 U/L (14-59) Alkaline Phosphatase 124 U/L (46-116) H Troponin I Quantitative < 0.017 ng/mL (0.000-0.055) WU-Hkh-D-Type Natriuretic Peptide 1154 pg/mL (0-449) H Total Protein 7.0 g/dL (6.4-8.2) Albumin 3.5 g/dL (3.4-5.0) Lipase 201 U/L (73-393) Laboratory Tests 08/10/20 00:57 Laboratory Tests 08/10/20 00:57 EKG: EK Sinus rhythm 95 bpm, left axis deviation, normal intervals, no ST depressions or ST depressions, no obvious T wave inversions, no active chest pain or discomfort 0113 sinus and 83 bpm, no axis deviation, normal intervals, no T wave inversions, no ST elevations or ST depressions Radiology/Procedures: Radiology/Procedures: IMAGING REPORT Signed PATIENT: ANILA BATES ACCOUNT: [id number] : 1945 LOCATION: ER AGE: 74 SEX: F EXAM STATUS: REG ER ORD. PHYSICIAN: KNIDRA MOSER DO REASON: palpitations PROCEDURE: PORTABLE CHEST 1V EXAMINATION: XR CHEST 1V CLINICAL HISTORY: Palpitations EXAM DATE/TIME: 08/10/2020 1:00 AM COMPARISON: 01/10/2020 FINDINGS: Lines, Tubes, and Devices: None. Cardiomediastinal Silhouette: Normal heart size. Aortic atherosclerotic calcification. Lungs and Pleura: No evidence of focal airspace consolidation or pleural effusion. Pulmonary vasculature unremarkable. Bones and Soft Tissues: Degenerative changes of the thoracic spine. IMPRESSION: No evidence of acute cardiopulmonary abnormality or significant interval change. Electronically signed by: Noé Stockton DO (08/10/2020 2:03 AM) [facility] DICTATED and SIGNED BY: NOÉ STOCKTON DO DATE: 08/10/20 [id number] 0 Course & Med Decision Making: Course & Med Decision Making Pertinent Labs and Imaging studies reviewed. (See chart for details) Concern for atypical chest pain in a moderate risk patient. Will admit for further medical management, serial troponins and cardiology consultation. Patient stable at time of admission and her and her daughter agree with this plan. I have spoken with the patient and/or caregivers. I have explained the patient's condition, diagnosis and treatment plan based on the information available to me at this time. I have answered the patient's and/or caregivers questions and answered any concerns. The patient and/or caregivers have as good an understanding of the patient's diagnosis, condition and treatment plan as can be expected at this point. The patient has been stabilized within the capability of the emergency department. The patient will be transported for further care and management or will be moved to an observation or inpatient service. I have communicated with the staff or medical practitioner taking over this patient's care. Dragon Disclaimer: Dragon Disclaimer: This electronic medical record was generated, in whole or in part, using a voice recognition dictation system. Departure Departure Impression: Primary Impression: Chest pain Additional Impressions: Microcytic anemia Palpitations Disposition: ADMITTED INPATIENT Admitting Physician: GUILHERME (Dr. Soto) Condition: STABLE Referrals: ADÁN MCMAHON APRN (PCP) KINDRA MOSER DO Aug 10, 2020 01:33
--- NOTE | 2020-08-10 02:06 | RAD ---
EXAMINATION: XR CHEST 1V CLINICAL HISTORY: Palpitations EXAM DATE/TIME: 08/10/2020 1:00 AM COMPARISON: 01/10/2020 FINDINGS: Lines, Tubes, and Devices: None. Cardiomediastinal Silhouette: Normal heart size. Aortic atherosclerotic calcification. Lungs and Pleura: No evidence of focal airspace consolidation or pleural effusion. Pulmonary vasculat ure unremarkable. Bones and Soft Tissues: Degenerative changes of the thoracic spine. IMPRESSION: No evidence of acute cardiopulmonary abnormality or significant interval change. Electronically signed by: Noé Light DO (08/10/2020 2:03 AM) CHUNG
[2020-08-10 02:16] LABS: BILIRUBIN,URINE NEGATIVE (NEG); CLARITY,URINE CLEAR; COLOR,URINE YELLOW; NITRITE,URINE NEGATIVE (NEG); PH,URINE 7.5 (<5.0-8.0); PROTEIN,URINE NEGATIVE (NEG-TRACE); UROBILINOGEN,URINE 0.2 mg/dL (0.2 mg/dL)
[2020-08-10 02:22] LABS: BACTERIA,URINE 0 /HPF (0-FEW); RBC,URINE 0 /HPF (0-2)
[2020-08-10 02:23] LABS: BARBITURATES NEG (NEG); BENZODIAZEPINES NEG (NEG); CANNABINOIDS NEG (NEG); COCAINE NEG (NEG); METHADONE NEG (NEG); OPIATES NEG (NEG); PHENCYCLIDINE NEG (NEG)
[2020-08-10 02:29] LABS: AMPHETAMINE/METHAMPHETAMINE NEG (NEG)
[2020-08-10 05:50] VITALS: BP 155/63
--- NOTE | 2020-08-10 06:17 | EKG ---
[facility] [address] [place] [address] Test Date: 2020-08-10 Test Time: 01:13:38 Pat Name: ANILA BATES Department: Room: Gender: F Phys Assistant: : 1945 Requested By: KINDRA MOSER Order Number: [id number] Reading MD: Measurements Intervals [place] Rate: 83 P: 29 [place]: 156 QRS: -3 QRSD: 80 T: 21 QT: 380 QTc: 447 Interpretive Statements SINUS RHYTHM LEFTWARD AXIS QRS(T) CONTOUR ABNORMALITY CONSIDER ANTEROSEPTAL MYOCARDIAL DAMAGE POSSIBLY ABNORMAL ECG RI6.02 Compared to ECG 08/10/2020 00:38:32 No significant changes
--- NOTE | 2020-08-10 06:18 | EKG ---
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
[2020-08-10] MEDS ORDERED: DEXL60CA2 PO (06:20)
--- NOTE | 2020-08-10 06:52 | PDOC1 ---
History and Physical Date of Admission Date of Admission DATE: 08/10/20 TIME: 06:46 Source Source: Patient History of Present Illness History of Present Illness Ms Lu is a 74-year-old female past medical history significant for CVA, A. fib on Eliquis (x2yrs) with aortic stenosis, hypertension, hyperlipidemia, presents the ED with her daughter, (patient consents to his/her/their knowledge and involvement in pts' medical care), with complaints of " he went to bed and did not feel right around 1030 11 PM with my TV on." States she was having "a lot of heartburn," and describes left-sided chest pressure with associated shaking, shortness of breath and "heart beating really fast." Patient states she is concerned because she saw Dr. Rubin a few weeks ago and was told her aortic valve is closing and would need "a stent" to open it. Is pending an appointment with a specialist at [facility]. Reports her symptoms resolved shortly after arriving to the emergency department-has no active chest pain. Chest radiograph no acute abnormalities. WBC 8.3, Hb 8.3 with MCV 60 platelets 194 NA 142, K4.2, BUN 21 CR 0.8 glucose 106 alk phos 124, troponin 0, NT proBNP 1154, UDS negative UA moderate LE and moderate squamous cells. EKG appears normal sinus rhythm 95 bpm with left axis deviation no ST segment abnormalities no T wave inversions, normal intervals Admitted for further care. Past Medical History Cardiovascular: AFIB, HTN, Hyperlipidemia, Aortic stenosis Pulmonary: No pertinent hx CENTRAL NERVOUS SYSTEM: CVA GI: Diverticulosis, GERD, Irritable bowel disease Heme/Onc: Cancer Hepatobiliary: No pertinent hx Psych: Anxiety Musculoskeletal: Osteoarthritis Rheumatologic: No pertinent hx Infectious disease: No pertinent hx Renal/: No pertinent hx Endocrine: No pertinent hx Past Surgical History Past Surgical History: Appendectomy, Cholecystectomy, Other Family History Family History: Heart Disease, High Cholestrol, Hypertension Family History: Other Social History Smoke: No ALCOHOL: none Drugs: None Current Problem List Problem List Problems Medical Problems: (1) Chest pain Status: Acute (2) Microcytic anemia Status: Acute (3) Palpitations Status: Acute Current Medications Current Medications Current Medications Sodium Chloride 1,000 ml @ 1,000 mls/hr Q1H IV Last administered on 08/10/20at 01:00; Start 08/10/20 at 00:45; Stop 08/10/20 at 01:44; Status DC Active Scripts Active Polyethylene Glycol 3350 17 Gm Powd.pack 17 Gm PO PRN DAILY PRN Eliquis (Apixaban) 5 Mg Tablet 5 Mg PO BID 30 Days Reported Dexilant (Dexlansoprazole) 60 Mg Cap.dr.mp 60 Mg PO BID Famotidine 40 Mg Tablet 1 Tab PO QHS Toprol XL (Metoprolol Succinate) 50 Mg Tab.er.24h 25 Mg PO DAILY Probiotic (Lactobacillus Acidophilus) 1 Each Capsule 1 Each PO DAILY [domperidone] 10 Mg PO BID Diltiazem 24Hr Cd (Diltiazem HCl) 240 Mg Cap.er.24h 240 Mg PO DAILY Vitamin D3 (Cholecalciferol (Vitamin D3)) 5,000 Unit Tablet 5,000 Unit PO DAILY Aspir-Low (Aspirin) 81 Mg Tablet.dr 81 Mg PO DAILY Benazepril Hcl 20 Mg Tablet 20 Mg PO DAILY PRN Crestor (Rosuvastatin Calcium) 40 Mg Tablet 20 Mg PO HS Allergies Allergies: Coded Allergies: ciprofloxacin (Verified Adverse Reaction, Intermediate, Nausea, 01/31/20) sulfamethoxazole (Verified Adverse Reaction, Intermediate, Nausea, 01/31/20) trimethoprim (Verified Adverse Reaction, Intermediate, Nausea, 01/31/20) ROS General: YES: Fatigue, Malaise; No: Chills, Night Sweats, Appetite, Other PSYCHOLOGICAL ROS: YES: Anxiety; No: Behavioral Disorder, Concentration difficultie, Decreased libido, Depression, Disorientation, Hallucinations, Hostility, Irritablity, Memory difficulties, Mood Swings, Obsessive thoughts, Physical abuse, Sexual abuse, Sleep disturbances, Suicidal ideation, Other Eyes: No Blurry vision, No Decreased vision, No Double vision, No Dry eyes, No Excessive tearing, No Eye Pain, No Itchy Eyes, No Loss of vision, No Photophobia, No Scotomata, No Uses contacts, No Uses glasses, No Other HEENT: No: Heacaches, Visual Changes, Hearing change, Nasal congestion, Nasal discharge, Oral lesions, Sinus pain, Sore Throat, Epistaxis, Sneezing, Snoring, Tinnitus, Vertigo, Vocal changes, Other ALLERGY AND IMMUNOLOGY: No: Hives, Insect Bite Sensitivity, Itchy/Watery Eyes, Nasal Congestion, Post Nasal Drip, Seasonal Allergies, Other Hematological and Lymphatic: No: Bleeding Problems, Blood Clots, Blood Transfusions, Brusing, Night Sweats, Pallor, Swollen Lymph Nodes, Other ENDOCRINE: No: Breast Changes, Galactorrhea, Hair Pattern Changes, Hot Flashes, Malaise/lethargy, Mood Swings, Palpitations, Polydipsia/polyuria, Skin Changes, Temperature Intolerance, Unexpected Weight Changes, Other Breast: No New/Changing Breast Lumps, No Nipple changes, No Nipple discharge, No Other Respiratory: YES: Shortness of breath; No: Cough, Hemoptysis, Orthopnea, Pleuritic Pain, SOB with excertion, Sputum Changes, Stridor, Tachypnea, Wheezing, Other Cardiovascular: yes Chest Pain, yes Palpitations; No Orthopnea, No Paroxysmal Noc. Dyspnea, No Edema, No Lt Headedness, No Other Gastrointestinal: No Nausea, No Vomiting, No Abdominal Pain, No Diarrhea, No Constipation, No Melena, No Hematochezia, No Other Genitourinary: No Dysuria, No Frequency, No Incontinence, No Hematuria, No Retention, No Discharge, No Urgency, No Pain, No Flank Pain, No Other, No , No , No , No , No , No , No Musculoskeletal: No Gait Disturbance, No Joint Pain, No Joint Stiffness, No Joint Swelling, No Muscle Pain, No Muscular Weakness, No Pain In:, No Swelling In:, No Other Neurological: No Behavorial Changes, No Bowel/Bladder ControlChng, No Confusion, No Dizziness, No Gait Disturbance, No Headaches, No Impaired Coord/balance, No Memory Loss, No Numbness/Tingling, No Seizures, No Speech Problems, No Tremors, No Visual Changes, No Weakness, No Other Skin: No Dry Skin, No Eczema, No Hair Changes, No Lumps, No Mole Changes, No Mottling, No Nail Changes, No Pruritus, No Rash, No Skin Lesion Changes, No Other, No Acne Physical Exam General: Alert, Oriented X3, Cooperative, No acute distress HEENT: Atraumatic, PERRLA, EOMI, Mucous membr. moist/pink Lungs: Clear to auscultation, Normal air movement Heart: S1S2, RRR, no thrills, murmurs (4/6 LARISA) Abdomen: Normal bowel sounds, Soft, No tenderness, No hepatosplenomegaly, No masses Rectal Exam: not examined Extremities: No clubbing, No cyanosis, No edema, Normal pulses, No tenderness/swelling Skin: No rashes, No breakdown, No significant lesion Neuro: Normal gait, Normal speech, Strength at 5/5 X4 ext, Normal tone, Sensation intact, Cranial nerves 3-12 NL, Reflexes 2+ Psych/Mental Status: Mental status NL, Mood NL Vitals Vitals Vital Signs Date Time Temp Pulse Resp B/P (MAP) Pulse Ox O2 Delivery O2 Flow Rate FiO2 08/10/20 06:21 Room Air 08/10/20 05:50 98.3 72 16 155/63 (93) 99 98.3 Labs Labs Laboratory Tests Test 08/10/20 00:57 08/10/20 02:09 White Blood Count 8.3 x10^3/uL (4.0-11.0) Red Blood Count 4.61 x10^6/uL (3.50-5.40) Hemoglobin 8.3 g/dL (12.0-15.5) Hematocrit 27.7 % (36.0-47.0) Mean Corpuscular Volume 60 fL (79-100) Mean Corpuscular Hemoglobin 18 pg (25-35) Mean Corpuscular Hemoglobin Concent 30 g/dL (31-37) Red Cell Distribution Width 19.1 % (11.5-14.5) Platelet Count 194 x10^3/uL (140-400) Neutrophils (%) (Auto) 70 % (31-73) Lymphocytes (%) (Auto) 17 % (24-48) Monocytes (%) (Auto) 11 % (0-9) Eosinophils (%) (Auto) 1 % (0-3) Basophils (%) (Auto) 1 % (0-3) Neutrophils # (Auto) 5.8 x10^3/uL (1.8-7.7) Lymphocytes # (Auto) 1.4 x10^3/uL (1.0-4.8) Monocytes # (Auto) 0.9 x10^3/uL (0.0-1.1) Eosinophils # (Auto) 0.1 x10^3/uL (0.0-0.7) Basophils # (Auto) 0.1 x10^3/uL (0.0-0.2) Platelet Estimate Adequate (ADEQUATE) Polychromasia Slight Hypochromasia Marked Anisocytosis Slight Microcytosis Marked Sodium Level 142 mmol/L (136-145) Potassium Level 4.2 mmol/L (3.5-5.1) Chloride Level 105 mmol/L (98-107) Carbon Dioxide Level 24 mmol/L (21-32) Anion Gap 13 (6-14) Blood Urea Nitrogen 21 mg/dL (7-20) Creatinine 0.8 mg/dL (0.6-1.0) Estimated GFR (Cockcroft-Gault) 69.7 Glucose Level 106 mg/dL (70-99) Calcium Level 8.7 mg/dL (8.5-10.1) Magnesium Level 2.2 mg/dL (1.8-2.4) Total Bilirubin 0.3 mg/dL (0.2-1.0) Direct Bilirubin 0.1 mg/dL (0.0-0.2) Aspartate Amino Transf (AST/SGOT) 17 U/L (15-37) Alanine Aminotransferase (ALT/SGPT) 24 U/L (14-59) Alkaline Phosphatase 124 U/L (46-116) Troponin I Quantitative < 0.017 ng/mL (0.000-0.055) HT-Mby-P-Type Natriuretic Peptide 1154 pg/mL (0-449) Total Protein 7.0 g/dL (6.4-8.2) Albumin 3.5 g/dL (3.4-5.0) Lipase 201 U/L (73-393) Urine Collection Type Unknown Urine Color Yellow Urine Clarity Clear Urine pH 7.5 (<5.0-8.0) Urine Specific [place] 1.010 (1.000-1.030) Urine Protein Negative mg/dL (NEG-TRACE) Urine Glucose (UA) Negative mg/dL (NEG) Urine Ketones (Stick) Negative mg/dL (NEG) Urine Blood Negative (NEG) Urine Nitrite Negative (NEG) Urine Bilirubin Negative (NEG) Urine Urobilinogen Dipstick 0.2 mg/dL (0.2 mg/dL) Urine Leukocyte Esterase Moderate (NEG) Urine RBC 0 /HPF (0-2) Urine WBC 5-10 /HPF (0-4) Urine Squamous Epithelial Cells Mod /LPF Urine Bacteria 0 /HPF (0-FEW) Urine Mucus Slight /LPF Urine Opiates Screen Neg (NEG) Urine Methadone Screen Neg (NEG) Urine Barbiturates Neg (NEG) Urine Phencyclidine Screen Neg (NEG) Urine Amphetamine/Methamphetamine Neg (NEG) Urine Benzodiazepines Screen Neg (NEG) Urine Cocaine Screen Neg (NEG) Urine Cannabinoids Screen Neg (NEG) Urine Ethyl Alcohol Neg (NEG) Laboratory Tests Test 08/10/20 00:57 08/10/20 02:09 White Blood Count 8.3 x10^3/uL (4.0-11.0) Red Blood Count 4.61 x10^6/uL (3.50-5.40) Hemoglobin 8.3 g/dL (12.0-15.5) Hematocrit 27.7 % (36.0-47.0) Mean Corpuscular Volume 60 fL (79-100) Mean Corpuscular Hemoglobin 18 pg (25-35) Mean Corpuscular Hemoglobin Concent 30 g/dL (31-37) Red Cell Distribution Width 19.1 % (11.5-14.5) Platelet Count 194 x10^3/uL (140-400) Neutrophils (%) (Auto) 70 % (31-73) Lymphocytes (%) (Auto) 17 % (24-48) Monocytes (%) (Auto) 11 % (0-9) Eosinophils (%) (Auto) 1 % (0-3) Basophils (%) (Auto) 1 % (0-3) Neutrophils # (Auto) 5.8 x10^3/uL (1.8-7.7) Lymphocytes # (Auto) 1.4 x10^3/uL (1.0-4.8) Monocytes # (Auto) 0.9 x10^3/uL (0.0-1.1) Eosinophils # (Auto) 0.1 x10^3/uL (0.0-0.7) Basophils # (Auto) 0.1 x10^3/uL (0.0-0.2) Platelet Estimate Adequate (ADEQUATE) Polychromasia Slight Hypochromasia Marked Anisocytosis Slight Microcytosis Marked Sodium Level 142 mmol/L (136-145) Potassium Level 4.2 mmol/L (3.5-5.1) Chloride Level 105 mmol/L (98-107) Carbon Dioxide Level 24 mmol/L (21-32) Anion Gap 13 (6-14) Blood Urea Nitrogen 21 mg/dL (7-20) Creatinine 0.8 mg/dL (0.6-1.0) Estimated GFR (Cockcroft-Gault) 69.7 Glucose Level 106 mg/dL (70-99) Calcium Level 8.7 mg/dL (8.5-10.1) Magnesium Level 2.2 mg/dL (1.8-2.4) Total Bilirubin 0.3 mg/dL (0.2-1.0) Direct Bilirubin 0.1 mg/dL (0.0-0.2) Aspartate Amino Transf (AST/SGOT) 17 U/L (15-37) Alanine Aminotransferase (ALT/SGPT) 24 U/L (14-59) Alkaline Phosphatase 124 U/L (46-116) Troponin I Quantitative < 0.017 ng/mL (0.000-0.055) UK-Bcn-U-Type Natriuretic Peptide 1154 pg/mL (0-449) Total Protein 7.0 g/dL (6.4-8.2) Albumin 3.5 g/dL (3.4-5.0) Lipase 201 U/L (73-393) Urine Collection Type Unknown Urine Color Yellow Urine Clarity Clear Urine pH 7.5 (<5.0-8.0) Urine Specific [place] 1.010 (1.000-1.030) Urine Protein Negative mg/dL (NEG-TRACE) Urine Glucose (UA) Negative mg/dL (NEG) Urine Ketones (Stick) Negative mg/dL (NEG) Urine Blood Negative (NEG) Urine Nitrite Negative (NEG) Urine Bilirubin Negative (NEG) Urine Urobilinogen Dipstick 0.2 mg/dL (0.2 mg/dL) Urine Leukocyte Esterase Moderate (NEG) Urine RBC 0 /HPF (0-2) Urine WBC 5-10 /HPF (0-4) Urine Squamous Epithelial Cells Mod /LPF Urine Bacteria 0 /HPF (0-FEW) Urine Mucus Slight /LPF Urine Opiates Screen Neg (NEG) Urine Methadone Screen Neg (NEG) Urine Barbiturates Neg (NEG) Urine Phencyclidine Screen Neg (NEG) Urine Amphetamine/Methamphetamine Neg (NEG) Urine Benzodiazepines Screen Neg (NEG) Urine Cocaine Screen Neg (NEG) Urine Cannabinoids Screen Neg (NEG) Urine Ethyl Alcohol Neg (NEG) Images Images Chest radiograph: Lines, Tubes, and Devices: None. Cardiomediastinal Silhouette: Normal heart size. Aortic atherosclerotic calcification. Lungs and Pleura: No evidence of focal airspace consolidation or pleural effusion. Pulmonary vasculature unremarkable. Bones and Soft Tissues: Degenerative changes of the thoracic spine. IMPRESSION: No evidence of acute cardiopulmonary abnormality or significant interval change. ECHOCARDIOGRAM <Conclusion> The left ventricle is normal size. The left ventricular systolic function is normal and the ejection fraction is within normal range. LV ejection fraction of 55 to 60%. There is mild concentric left ventricular hypertrophy. The aortic valve is heavily calcified. Trace to mild aortic regurgitation. There is moderately severe valvular aortic stenosis. Calculated aortic valve area is 0.9 cm2 with maximum pressure gradient of 70mmHg and mean pressure gradient of 45mmHg. Doppler and Color-flow revealed trace mitral regurgitation. Trace tricuspid regurgitation. The pulmonary artery systolic pressure is estimated at 20-25 mmHg. DATE: 01/12/20 STRESS TEST Conclusion 1. No evidence of EKG changes with stress testing. 2. Normal perfusion at stress/rest. 3. Low risk study. 4. EF > 60%. DATE: 03/09/18 1312 VTE Prophylaxis Ordered VTE Prophylaxis Devices: Yes VTE Pharmacological Prophylaxi: Yes Assessment/Plan Assessment/Plan A/P: Chest pain -likely symptomatic palpitations versus GERD AFIB; presently SR/ST. on Eliquis for stroke prophylaxis Shortness of breath/fatigue - symptomatic critical aortic stenosis, has outpatient TAVR referral S/p right TKA 01/31/20 Constipation - improved GERD - needs PPI while on eliquis CAD - CT chest with coronary calcifications. Will likely need repeat angiography outpatient prior to TAVR referral Hypertension - cont home meds Hyperlipidemia; statin Critical - has outpatient TAVR referral Anemia - microcytic, likely from slow GI bleed. Would transfuse if Hb < 8 FEN - Cardiac diet PPX - eliquis FULL CODE Dispo - inpatient Justifications for Admission Other Justification MELVA ZUNIGA MD Aug 10, 2020 06:52
[2020-08-10 07:00] VITALS: BP 163/71
[2020-08-10] MEDS ORDERED: POLYETHYLENE GLYCOL 3350 17 GM PACKET. PO PRN (07:00)
[2020-08-10] MEDS ORDERED: PANTOPRAZOLE 40 MG TABLET.DR. PO SCH (07:30)
[2020-08-10] MEDS ORDERED: ASPIRIN ENTERIC COATED 81 MG TABLET.DR. PO SCH (09:00)
[2020-08-10] MEDS ORDERED: METOPROLOL SUCC 24HR ER 25 MG TAB.ER.24H. PO SCH (09:00)
[2020-08-10] MEDS ORDERED: CHOLECALCIFEROL (VITAMIN D3) 5,000 UNIT CAPSULE PO SCH (09:00)
[2020-08-10] MEDS ORDERED: LACTOBACILLUS RHAMNOSUS GG 1 CAPSULE. PO SCH (09:00)
[2020-08-10] MEDS ORDERED: APIXABAN 5 MG TABLET. PO SCH (09:00)
[2020-08-10] MEDS ORDERED: LISINOPRIL 20 MG TABLET PO SCH (09:00)
[2020-08-10 11:00] VITALS: BP 154/65
--- NOTE | 2020-08-10 11:07 | PDOC2 ---
JULI GAUTAM LIP OF SHANK CUTTER 08/10/20 1107: CARDIAC CONSULT DATE OF CONSULT Date of Consult DATE: 08/10/20 TIME: 10:51 REASON FOR CONSULT Reason for Consult: Chest pressure REFERRING PHYSICIAN Referring Physician: [facility] SOURCE Source: Chart review, Patient HISTORY OF PRESENT ILLNESS HISTORY OF PRESENT ILLNESS This is a pleasant 74 yo female admitted for complains of chest pain. This felt like palpitations. She said that she felt heeart was racing and counted it at 118. This happened last night. Some SOA otherwise no diaphoresis, dizziness or nause or vomiting. She does have hx of severe ASA and is due for TAVR waiting for [facility] to notify her for scheduling. She also has hx of PAFIB and takes cardizem and metoprolol. No arrhythmias has been captured since admitted and maintaining SR. Denies any significnat anxiety and no fever or chills. Denies any excessive caffeinated beverage consumption. NO exertional chest pain or HULL. PAST MEDICAL HISTORY Cardiovascular: AFIB, HTN, Hyperlipidemia Pulmonary: No pertinent hx CENTRAL NERVOUS SYSTEM: CVA GI: Diverticulosis, GERD, Hemorrhoids, Other (esophageal dysmotility) Heme/Onc: No pertinent hx, Cancer (breast), Other (chronic eliquis use) Hepatobiliary: Cholelithiasis Psych: Other (insomnia) Musculoskeletal: Osteoarthritis Rheumatologic: No pertinent hx Infectious disease: No pertinent hx ENT: No pertinent hx Renal/: UTI Endocrine: No pertinent hx Dermatology: No pertinent hx PAST SURGICAL HISTORY Past Surgical History: Arthroscopy (right foot), Cholecystectomy, Total knee replacement (bilateral), Hysterectomy (partial) FAMILY HISTORY Family History noncontributory to CV SOCIAL HISTORY Smoke: No ALCOHOL: none Drugs: None Lives: with Family CURRENT MEDICATIONS CURRENT MEDICATIONS Current Medications Medications (Trade) Dose Ordered Sig/[place] Route PRN Reason Start Time Stop Time Status Last Admin Dose Admin Sodium Chloride 1,000 ml @ 1,000 mls/hr Q1H IV 08/10/20 00:45 08/10/20 01:44 DC 08/10/20 01:00 Apixaban (Eliquis) 5 mg BID PO 08/10/20 09:00 08/10/20 09:46 Aspirin (Ecotrin) 81 mg DAILY PO 08/10/20 09:00 08/10/20 09:45 Diltiazem HCl (Cardizem 24hr Cd) 240 mg DAILY PO 08/10/20 09:00 08/10/20 09:46 Metoprolol Succinate (Toprol Xl) 25 mg DAILY PO 08/10/20 09:00 08/10/20 09:46 Lisinopril (Prinivil) 20 mg DAILY PO 08/10/20 09:00 08/10/20 09:46 Vitamin D (Vitamin D3) 5,000 unit DAILY PO 08/10/20 09:00 08/10/20 09:45 Lactobacillus Rhamnosus (Culturelle) 1 cap DAILY PO 08/10/20 09:00 08/10/20 09:45 Pantoprazole Sodium (Protonix) 40 mg DAILYAC PO 08/10/20 07:30 08/10/20 09:44 ALLERGIES ALLERGIES: Coded Allergies: ciprofloxacin (Verified Adverse Reaction, Intermediate, Nausea, 01/31/20) sulfamethoxazole (Verified Adverse Reaction, Intermediate, Nausea, 01/31/20) trimethoprim (Verified Adverse Reaction, Intermediate, Nausea, 01/31/20) ROS Review of System 14 point ROS evaluated with pertinent positives noted per HPI PHYSICAL EXAM General: Alert, Oriented X3, Cooperative, No acute distress HEENT: Atraumatic, Mucous membr. moist/pink Lungs: Clear to auscultation, Normal air movement Heart: Regular rate (SR), Normal S1, Normal S2, Other (Accentuated S2. Systolic murmur crescendo-decrescendo 5/6 loudest to SAEED border) Abdomen: Soft, No tenderness Extremities: No cyanosis, No edema Skin: No breakdown, No significant lesion Neuro: Normal speech, Sensation intact Psych/Mental Status: Mood NL MUSCULOSKELETAL: Osteoarthritic changes both hands VITALS/I&O VITALS/I&O: Vital Signs Date Time Temp Pulse Resp B/P (MAP) Pulse Ox O2 Delivery O2 Flow Rate FiO2 08/10/20 09:46 76 163/71 08/10/20 08:00 Room Air 08/10/20 07:00 98.0 18 97 98.0 LABS Lab: Laboratory Tests Test 08/10/20 00:57 08/10/20 02:09 08/10/20 07:10 White Blood Count 8.3 x10^3/uL (4.0-11.0) Red Blood Count 4.61 x10^6/uL (3.50-5.40) Hemoglobin 8.3 g/dL (12.0-15.5) L Hematocrit 27.7 % (36.0-47.0) L Mean Corpuscular Volume 60 fL (79-100) L Mean Corpuscular Hemoglobin 18 pg (25-35) L Mean Corpuscular Hemoglobin Concent 30 g/dL (31-37) L Red Cell Distribution Width 19.1 % (11.5-14.5) H Platelet Count 194 x10^3/uL (140-400) Neutrophils (%) (Auto) 70 % (31-73) Lymphocytes (%) (Auto) 17 % (24-48) L Monocytes (%) (Auto) 11 % (0-9) H Eosinophils (%) (Auto) 1 % (0-3) Basophils (%) (Auto) 1 % (0-3) Neutrophils # (Auto) 5.8 x10^3/uL (1.8-7.7) Lymphocytes # (Auto) 1.4 x10^3/uL (1.0-4.8) Monocytes # (Auto) 0.9 x10^3/uL (0.0-1.1) Eosinophils # (Auto) 0.1 x10^3/uL (0.0-0.7) Basophils # (Auto) 0.1 x10^3/uL (0.0-0.2) Platelet Estimate Adequate (ADEQUATE) Polychromasia Slight Hypochromasia Marked Anisocytosis Slight Microcytosis Marked Sodium Level 142 mmol/L (136-145) Potassium Level 4.2 mmol/L (3.5-5.1) Chloride Level 105 mmol/L (98-107) Carbon Dioxide Level 24 mmol/L (21-32) Anion Gap 13 (6-14) Blood Urea Nitrogen 21 mg/dL (7-20) H Creatinine 0.8 mg/dL (0.6-1.0) Estimated GFR (Cockcroft-Gault) 69.7 Glucose Level 106 mg/dL (70-99) H Calcium Level 8.7 mg/dL (8.5-10.1) Magnesium Level 2.2 mg/dL (1.8-2.4) Total Bilirubin 0.3 mg/dL (0.2-1.0) Direct Bilirubin 0.1 mg/dL (0.0-0.2) Aspartate Amino Transferase (AST) 17 U/L (15-37) Alanine Aminotransferase (ALT) 24 U/L (14-59) Alkaline Phosphatase 124 U/L (46-116) H Troponin I Quantitative < 0.017 ng/mL (0.000-0.055) < 0.017 ng/mL (0.000-0.055) HZ-Yxg-Y-Type Natriuretic Peptide 1154 pg/mL (0-449) H Total Protein 7.0 g/dL (6.4-8.2) Albumin 3.5 g/dL (3.4-5.0) Lipase 201 U/L (73-393) Urine Collection Type Unknown Urine Color Yellow Urine Clarity Clear Urine pH 7.5 (<5.0-8.0) Urine Specific [place] 1.010 (1.000-1.030) Urine Protein Negative mg/dL (NEG-TRACE) Urine Glucose (UA) Negative mg/dL (NEG) Urine Ketones (Stick) Negative mg/dL (NEG) Urine Blood Negative (NEG) Urine Nitrite Negative (NEG) Urine Bilirubin Negative (NEG) Urine Urobilinogen Dipstick 0.2 mg/dL (0.2 mg/dL) Urine Leukocyte Esterase Moderate (NEG) Urine RBC 0 /HPF (0-2) Urine WBC 5-10 /HPF (0-4) Urine Squamous Epithelial Cells Mod /LPF Urine Bacteria 0 /HPF (0-FEW) Urine Mucus Slight /LPF Urine Opiates Screen Neg (NEG) Urine Methadone Screen Neg (NEG) Urine Barbiturates Neg (NEG) Urine Phencyclidine Screen Neg (NEG) Urine Amphetamine/Methamphetamine Neg (NEG) Urine Benzodiazepines Screen Neg (NEG) Urine Cocaine Screen Neg (NEG) Urine Cannabinoids Screen Neg (NEG) Urine Ethyl Alcohol Neg (NEG) Laboratory Tests 08/10/20 00:57 Laboratory Tests 08/10/20 00:57 ASSESSMENT/PLAN ASSESSMENT/PLAN 1. Chest pain: due to palpitations 2. PAFIB: suspect run of AFIB RVR, none further recorded as an inpt 3. Severe : awaiting TAVR scheduling at [facility] 4. [facility] 5. HTN: controlled Recommendations 1. Await schedule for TAVR and will arrange for outpt C prior 2. Continue metoprolol and cardizem. Will arrange for [facility] and note AFIB burden and will consideer use of antiarrhythmic pending her burden. Avoid stimulants 3. Continue ASA and eliquis for stroke prevention CHRISTOPHER MARCELINO MD 08/10/20 1616: CARDIAC CONSULT ASSESSMENT/PLAN ASSESSMENT/PLAN Patient seen and examined. Agree with DERRICK BARGE OPERATOR's assessment and plan. Chest pain with atypical features. Myocardial infarction has been ruled out. Agree that patient's palpitations could have been secondary to her known history of paroxysmal atrial fibrillation. She is presently in sinus rhythm. We will obtain outpatient event monitor recording to assess AF burden. Continue Eliquis for stroke prophylaxis. Patient is currently waiting for an appointment with the valve clinic for possible TAVR. Okay for DC from cardiac standpoint. Thank you for your consultation. JULI GAUTAM APRN Aug 10, 2020 11:07 CHRISTOPHER MARCELINO MD Aug 10, 2020 16:16
--- NOTE | 2020-08-10 14:00 | PDOC3 ---
Discharge Summary Visit Information Date of Admission: Aug 10, 2020 Date of Discharge: Aug 10, 2020 Admitting Diagnosis: Chest pain Final Diagnosis Problems Medical Problems: (1) Chest pain Status: Acute (2) Microcytic anemia Status: Acute (3) Palpitations Status: Acute Brief Hospital Course Allergies Allergies Coded Allergies Type Severity Reaction Last Updated Verified ciprofloxacin Adverse Reaction Intermediate Nausea 01/31/20 Yes sulfamethoxazole Adverse Reaction Intermediate Nausea 01/31/20 Yes trimethoprim Adverse Reaction Intermediate Nausea 01/31/20 Yes Vital Signs Vital Signs Date Time Temp Pulse Resp B/P (MAP) Pulse Ox O2 Delivery O2 Flow Rate FiO2 08/10/20 11:00 98.4 70 16 154/65 (94) 94 Room Air 98.4 Lab Results Laboratory Tests Test 08/10/20 00:57 08/10/20 02:09 08/10/20 07:10 White Blood Count 8.3 x10^3/uL (4.0-11.0) Red Blood Count 4.61 x10^6/uL (3.50-5.40) Hemoglobin 8.3 g/dL (12.0-15.5) Hematocrit 27.7 % (36.0-47.0) Mean Corpuscular Volume 60 fL (79-100) Mean Corpuscular Hemoglobin 18 pg (25-35) Mean Corpuscular Hemoglobin Concent 30 g/dL (31-37) Red Cell Distribution Width 19.1 % (11.5-14.5) Platelet Count 194 x10^3/uL (140-400) Neutrophils (%) (Auto) 70 % (31-73) Lymphocytes (%) (Auto) 17 % (24-48) Monocytes (%) (Auto) 11 % (0-9) Eosinophils (%) (Auto) 1 % (0-3) Basophils (%) (Auto) 1 % (0-3) Neutrophils # (Auto) 5.8 x10^3/uL (1.8-7.7) Lymphocytes # (Auto) 1.4 x10^3/uL (1.0-4.8) Monocytes # (Auto) 0.9 x10^3/uL (0.0-1.1) Eosinophils # (Auto) 0.1 x10^3/uL (0.0-0.7) Basophils # (Auto) 0.1 x10^3/uL (0.0-0.2) Platelet Estimate Adequate (ADEQUATE) Polychromasia Slight Hypochromasia Marked Anisocytosis Slight Microcytosis Marked Sodium Level 142 mmol/L (136-145) Potassium Level 4.2 mmol/L (3.5-5.1) Chloride Level 105 mmol/L (98-107) Carbon Dioxide Level 24 mmol/L (21-32) Anion Gap 13 (6-14) Blood Urea Nitrogen 21 mg/dL (7-20) Creatinine 0.8 mg/dL (0.6-1.0) Estimated GFR (Cockcroft-Gault) 69.7 Glucose Level 106 mg/dL (70-99) Calcium Level 8.7 mg/dL (8.5-10.1) Magnesium Level 2.2 mg/dL (1.8-2.4) Total Bilirubin 0.3 mg/dL (0.2-1.0) Direct Bilirubin 0.1 mg/dL (0.0-0.2) Aspartate Amino Transf (AST/SGOT) 17 U/L (15-37) Alanine Aminotransferase (ALT/SGPT) 24 U/L (14-59) Alkaline Phosphatase 124 U/L (46-116) Troponin I Quantitative < 0.017 ng/mL (0.000-0.055) < 0.017 ng/mL (0.000-0.055) JP-Xhh-I-Type Natriuretic Peptide 1154 pg/mL (0-449) Total Protein 7.0 g/dL (6.4-8.2) Albumin 3.5 g/dL (3.4-5.0) Lipase 201 U/L (73-393) Urine Collection Type Unknown Urine Color Yellow Urine Clarity Clear Urine pH 7.5 (<5.0-8.0) Urine Specific [place] 1.010 (1.000-1.030) Urine Protein Negative mg/dL (NEG-TRACE) Urine Glucose (UA) Negative mg/dL (NEG) Urine Ketones (Stick) Negative mg/dL (NEG) Urine Blood Negative (NEG) Urine Nitrite Negative (NEG) Urine Bilirubin Negative (NEG) Urine Urobilinogen Dipstick 0.2 mg/dL (0.2 mg/dL) Urine Leukocyte Esterase Moderate (NEG) Urine RBC 0 /HPF (0-2) Urine WBC 5-10 /HPF (0-4) Urine Squamous Epithelial Cells Mod /LPF Urine Bacteria 0 /HPF (0-FEW) Urine Mucus Slight /LPF Urine Opiates Screen Neg (NEG) Urine Methadone Screen Neg (NEG) Urine Barbiturates Neg (NEG) Urine Phencyclidine Screen Neg (NEG) Urine Amphetamine/Methamphetamine Neg (NEG) Urine Benzodiazepines Screen Neg (NEG) Urine Cocaine Screen Neg (NEG) Urine Cannabinoids Screen Neg (NEG) Urine Ethyl Alcohol Neg (NEG) Thyroid Stimulating Hormone (TSH) 2.071 uIU/mL (0.358-3.74) Laboratory Tests Test 08/10/20 00:57 08/10/20 02:09 08/10/20 07:10 White Blood Count 8.3 x10^3/uL (4.0-11.0) Red Blood Count 4.61 x10^6/uL (3.50-5.40) Hemoglobin 8.3 g/dL (12.0-15.5) Hematocrit 27.7 % (36.0-47.0) Mean Corpuscular Volume 60 fL (79-100) Mean Corpuscular Hemoglobin 18 pg (25-35) Mean Corpuscular Hemoglobin Concent 30 g/dL (31-37) Red Cell Distribution Width 19.1 % (11.5-14.5) Platelet Count 194 x10^3/uL (140-400) Neutrophils (%) (Auto) 70 % (31-73) Lymphocytes (%) (Auto) 17 % (24-48) Monocytes (%) (Auto) 11 % (0-9) Eosinophils (%) (Auto) 1 % (0-3) Basophils (%) (Auto) 1 % (0-3) Neutrophils # (Auto) 5.8 x10^3/uL (1.8-7.7) Lymphocytes # (Auto) 1.4 x10^3/uL (1.0-4.8) Monocytes # (Auto) 0.9 x10^3/uL (0.0-1.1) Eosinophils # (Auto) 0.1 x10^3/uL (0.0-0.7) Basophils # (Auto) 0.1 x10^3/uL (0.0-0.2) Platelet Estimate Adequate (ADEQUATE) Polychromasia Slight Hypochromasia Marked Anisocytosis Slight Microcytosis Marked Sodium Level 142 mmol/L (136-145) Potassium Level 4.2 mmol/L (3.5-5.1) Chloride Level 105 mmol/L (98-107) Carbon Dioxide Level 24 mmol/L (21-32) Anion Gap 13 (6-14) Blood Urea Nitrogen 21 mg/dL (7-20) Creatinine 0.8 mg/dL (0.6-1.0) Estimated GFR (Cockcroft-Gault) 69.7 Glucose Level 106 mg/dL (70-99) Calcium Level 8.7 mg/dL (8.5-10.1) Magnesium Level 2.2 mg/dL (1.8-2.4) Total Bilirubin 0.3 mg/dL (0.2-1.0) Direct Bilirubin 0.1 mg/dL (0.0-0.2) Aspartate Amino Transf (AST/SGOT) 17 U/L (15-37) Alanine Aminotransferase (ALT/SGPT) 24 U/L (14-59) Alkaline Phosphatase 124 U/L (46-116) Troponin I Quantitative < 0.017 ng/mL (0.000-0.055) < 0.017 ng/mL (0.000-0.055) OW-Fig-Q-Type Natriuretic Peptide 1154 pg/mL (0-449) Total Protein 7.0 g/dL (6.4-8.2) Albumin 3.5 g/dL (3.4-5.0) Lipase 201 U/L (73-393) Urine Collection Type Unknown Urine Color Yellow Urine Clarity Clear Urine pH 7.5 (<5.0-8.0) Urine Specific [place] 1.010 (1.000-1.030) Urine Protein Negative mg/dL (NEG-TRACE) Urine Glucose (UA) Negative mg/dL (NEG) Urine Ketones (Stick) Negative mg/dL (NEG) Urine Blood Negative (NEG) Urine Nitrite Negative (NEG) Urine Bilirubin Negative (NEG) Urine Urobilinogen Dipstick 0.2 mg/dL (0.2 mg/dL) Urine Leukocyte Esterase Moderate (NEG) Urine RBC 0 /HPF (0-2) Urine WBC 5-10 /HPF (0-4) Urine Squamous Epithelial Cells Mod /LPF Urine Bacteria 0 /HPF (0-FEW) Urine Mucus Slight /LPF Urine Opiates Screen Neg (NEG) Urine Methadone Screen Neg (NEG) Urine Barbiturates Neg (NEG) Urine Phencyclidine Screen Neg (NEG) Urine Amphetamine/Methamphetamine Neg (NEG) Urine Benzodiazepines Screen Neg (NEG) Urine Cocaine Screen Neg (NEG) Urine Cannabinoids Screen Neg (NEG) Urine Ethyl Alcohol Neg (NEG) Thyroid Stimulating Hormone (TSH) 2.071 uIU/mL (0.358-3.74) Brief Hospital Course Ms Lu is a 74-year-old female past medical history significant for CVA, A. fib on Eliquis (x2yrs) with aortic stenosis, hypertension, hyperlipidemia, presents the ED with her daughter, (patient consents to his/her/their knowledge and involvement in pts' medical care), with complaints of " he went to bed and did not feel right around 1030 11 PM with my TV on." States she was having "a lot of heartburn," and describes left-sided chest pressure with associated shaking, shortness of breath and "heart beating really fast." Patient states she is concerned because she saw Dr. Rubin a few weeks ago and was told her aortic valve is closing and would need "a stent" to open it. Is pending an appointment with a specialist at [facility]. Reports her symptoms resolved shortly after arriving to the emergency department-has no active chest pain. Chest radiograph no acute abnormalities. WBC 8.3, Hb 8.3 with MCV 60 platelets 194 NA 142, K4.2, BUN 21 CR 0.8 glucose 106 alk phos 124, troponin 0, NT proBNP 1154, UDS negative UA moderate LE and moderate squamous cells. EKG appears normal sinus rhythm 95 bpm with left axis deviation no ST segment abnormalities no T wave inversions, normal intervals Admitted for further care. Consults: Cardiology Patient comes symptomatically better after PPI and continue her blood pressure medications. No A. fib noted on quality assurance monitor final. She likely experienced worsening palpitations at home and paroxysmal atrial fibrillation that was not caught on monitor. She has outpatient TAVR referral and will follow up with cardiology. Problem list: Chest pain -likely symptomatic palpitations versus GERD AFIB; presently SR/ST. on Eliquis for stroke prophylaxis Shortness of breath/fatigue - symptomatic critical aortic stenosis, has outpatient TAVR referral S/p right TKA 01/31/20 Constipation - improved GERD - needs PPI while on eliquis CAD - CT chest with coronary calcifications. Will likely need repeat angiography outpatient prior to TAVR referral Hypertension - cont home meds Hyperlipidemia; statin Critical - has outpatient TAVR referral Anemia - microcytic, likely from slow GI bleed. Would transfuse if Hb < 8 Discharge Information Condition at Discharge: Improved Follow Up: Weeks (1) Disposition/Orders: D/C to Home Scheduled Apixaban (Eliquis) 5 Mg Tablet, 5 MG PO BID for Atrial fibrillation for 30 Days, #60 Ref 11 Prescribed by: MELVA ZUNIGA MD on 02/01/18 0757 Last Action: Continued on 08/10/20653 by MELVA ZUNIGA MD Aspirin (Aspir-Low) 81 Mg Tablet., 81 MG PO DAILY for TIA, (Reported) Entered as Reported by: JORGITO CHAMBERLAIN on 01/26/18 0950 Last Action: Continued on 08/10/20653 by MELVA ZUNIGA MD Cholecalciferol (Vitamin D3) (Vitamin D3) 5,000 Unit Tablet, 5,000 UNIT PO DAILY for low vit D level, (Reported) Entered as Reported by: CHAYO ARREOLA on 01/30/18 0604 Last Action: Converted on 08/10/20653 by MELVA ZUNIGA MD Dexlansoprazole (Dexilant) 60 Mg Jun., 60 MG PO BID for gerd, (Reported) Entered as Reported by: CHAYO ARREOLA on 08/10/20 0620 Last Action: Converted on 08/10/20653 by MELVA ZUNIGA MD Diltiazem HCl (Diltiazem 24Hr Cd) 240 Mg Cap.er.24h, 240 MG PO DAILY for blood pressure control, (Reported) Entered as Reported by: TORO FRAZIER on 01/06/19 0946 Last Action: Continued on 08/10/20653 by MELVA ZUNIGA MD Famotidine (Famotidine) 40 Mg Tablet, 1 TAB PO QHS for gerd, (Reported) Entered as Reported by: DOMINGO MATAMOROS on 02/07/20 1009 Last Action: Converted on 08/10/20653 by MELVA ZUNIGA MD Lactobacillus Acidophilus (Probiotic) 1 Each Capsule, 1 EACH PO DAILY for colon health, (Reported) Entered as Reported by: TORO FRAZIER on 01/06/19945 Last Action: Converted on 08/10/20653 by MELVA ZUNIGA MD Metoprolol Succinate (Toprol XL) 50 Mg Tab.er.24h, 25 MG PO DAILY for FOR HYPERTENSION, (Reported) Entered as Reported by: TORO FRAZIER on 01/06/19 0946 Last Action: Continued on 08/10/20653 by MELVA ZUNIGA MD Rosuvastatin Calcium (Crestor) 40 Mg Tablet, 20 MG PO HS for HLD, (Reported) Entered as Reported by: JORGITO CHAMBERLAIN on 04/27/15 1511 Last Action: Converted on 08/10/20653 by MELVA ZUNIGA MD [domperidone] , 10 MG PO BID for nausea/stomach upset, (Reported) Entered as Reported by: TORO FRAZIER on 01/06/19945 Last Action: Reviewed on 08/10/20619 by CHAYO ARREOLA Scheduled PRN Benazepril Hcl (Benazepril Hcl) 20 Mg Tablet, 20 MG PO DAILY PRN for HTN, (Reported) Entered as Reported by: JORGITO CHAMBERLAIN on 01/26/18 0950 Last Action: Converted on 08/10/20653 by MELVA ZUNIGA MD Polyethylene Glycol 3350 (Polyethylene Glycol 3350) 17 Gm Powd.pack, 17 GM PO PRN DAILY PRN for CONSTIPATION, #30 Prescribed by: GAURANG GARZA MD on 02/07/20 1541 Last Action: Continued on 08/10/20653 by MELVA ZUNIGA MD Discontinued Medications Dexlansoprazole (Dexilant) 60 Mg Jun., 60 MG PO DAILY for Gerd, (Reported) Entered as Reported by: JORGITO CHAMBERLAIN on 04/27/15 1506 Last Action: Discontinued on 08/10/20619 by CHAYO ARREOLA Justicifation of Admission Dx: Justifications for Admission: Justification of Admission Dx: Yes MELVA ZUNIGA MD Aug 10, 2020 14:00
--- NOTE | 2020-08-10 14:47 | NUR ---
Discharge Note: [facility] Discharge instructions and discharge home medications reviewed with Patient and a copy given. All questions have been answered and understanding verbalized. Need to follow up [facility] ([facility]) for TAVR per Dr. Patel discussed with patient. The following instructions and handouts were given: Discontinued iv line and catheter intact. Patient discharged to home with self-care.
[2020-08-10] MEDS ORDERED: ATORVASTATIN CALCIUM 40 MG TABLET. PO SCH (21:00)
[2020-08-10] MEDS ORDERED: FAMOTIDINE 20 MG TABLET. PO SCH (21:00)
== END 2020-08-10 14:57 | disposition home or self-care (01) | DRG 392 ==
LOC: ER 00:31 → 1 WEST ICU 04:01
PROVIDERS: ADMIT Family Medicine; ATTEND Family Medicine
DX: K21.9 Gastro-esophageal reflux disease without esophagitis (principal); K92.2 Gastrointestinal hemorrhage, unspecified; E78.00 Pure hypercholesterolemia, unspecified; I10 Essential (primary) hypertension; E78.5 Hyperlipidemia, unspecified; F41.9 Anxiety disorder, unspecified; K58.9 Irritable bowel syndrome, unspecified; M19.90 Unspecified osteoarthritis, unspecified site; K59.00 Constipation, unspecified; I25.10 Atherosclerotic heart disease of native coronary artery without angina pectoris; D50.9 Iron deficiency anemia, unspecified; Z96.653 Presence of artificial knee joint, bilateral; Z90.49 Acquired absence of other specified parts of digestive tract; Z90.711 Acquired absence of uterus with remaining cervical stump; Z88.2 Allergy status to sulfonamides; Z88.8 Allergy status to other drugs, medicaments and biological substances; Z79.01 Long term (current) use of anticoagulants; Z86.73 Personal history of transient ischemic attack (TIA), and cerebral infarction without residual deficits; Z82.49 Family history of ischemic heart disease and other diseases of the circulatory system
CPT/HCPCS: 36415; 71045; 80048; 80076; 80307; 81001; 83690; 83735; 83880; 84443; 84484; 85025; 87086; 93005; 96360; J7030; 99285-25; G0378

== ENCOUNTER 2020-09-12 06:59 | Observation (INO) | payer BC, MEDICARE ==
[2020-09-12] VITALS (14 sets, daily range): BP systolic 105–151; BP diastolic 37–69
[~2020-09-12] VITALS: Ht 163.8 cm; Wt 82.1 kg
[2020-09-12] MEDS ORDERED: IODIXANOL 320 MG/ML 100 ML VIAL. ONE ×3 (07:37→09:31)
[2020-09-12] MEDS ORDERED: LIDOCAINE 1% PF 2 ML VIAL. ONE (07:37)
[2020-09-12] MEDS ORDERED: LIDOCAINE 1% PF 2 ML VIAL. INJ ONE (08:00)
[2020-09-12] MEDS ORDERED: VERAPAMIL 5 MG/2 ML VIAL. IART ONE (08:00)
[2020-09-12] MEDS ORDERED: NITROGLYCERIN 200 MCG/2 ML SYRINGE FOR CATH/VASC LAB. IART ONE (08:00)
[2020-09-12] MEDS ORDERED: IODIXANOL 320 MG/ML 100 ML VIAL. IART ONE (08:00)
[2020-09-12] MEDS ORDERED: HEPARIN for IV BOLUS 10,000 UNIT/10 ML VIAL. IART ONE (08:00)
[2020-09-12] MEDS ORDERED: fentaNYL PF VIAL 100 MCG/2 ML VIAL IV ONE (08:00)
[2020-09-12] MEDS ORDERED: MIDAZOLAM HCL/PF 2 MG/2 ML VIAL. IV ONE (08:00)
[2020-09-12 08:07] LABS: CALCIUM 8.9 mg/dL (8.5-10.1); CREATININE 0.9 mg/dL (0.6-1.0); GFR 60.9; POTASSIUM 4.4 mmol/L (3.5-5.1)
[2020-09-12 08:12] LABS: PROTHROMBIN TIME PATIENT 13.3 SEC (11.7-14.0)
[2020-09-12 08:29] LABS: BASO # 0.1 x10^3/uL (0.0-0.2); BASO % 1 % (0-3); EOS # 0.2 x10^3/uL (0.0-0.7); EOS % 2 % (0-3); HEMATOCRIT 29.3 % (36.0-47.0); HEMOGLOBIN 8.8 g/dL (12.0-15.5); LYMPH # 1.2 x10^3/uL (1.0-4.8); LYMPH % 13 % (24-48); MEAN CORPUSCULAR HEMOGLOBIN 18 pg (25-35); MEAN CORPUSCULAR HGB CONC 30 g/dL (31-37); MEAN CORPUSCULAR VOLUME 61 fL (79-100); MONO # 0.7 x10^3/uL (0.0-1.1); MONO % 8 % (0-9); NEUT # 7.2 x10^3/uL (1.8-7.7); NEUT % 78 % (31-73); PLATELET COUNT 210 x10^3/uL (140-400); RED CELL DISTRIBUTION WIDTH 20.7 % (11.5-14.5); WHITE BLOOD COUNT 9.3 x10^3/uL (4.0-11.0)
[2020-09-12] MEDS ORDERED: ONDANSETRON PF 4 MG/2 ML VIAL. ONE (08:48)
[2020-09-12] MEDS ORDERED: MIDAZOLAM HCL/PF 2 MG/2 ML VIAL. ONE (08:50)
[2020-09-12] MEDS ORDERED: BIVALIRUDIN 250 MG VIAL. IV ONE ×2 (09:06→09:15)
[2020-09-12] MEDS ORDERED: ONDANSETRON PF 4 MG/2 ML VIAL. IVP ONE (09:30)
[2020-09-12] MEDS ORDERED: ASPIRIN 325 MG TABLET PO ONE (09:45)
[2020-09-12] MEDS ORDERED: CLOPIDOGREL BISULFATE 75 MG TABLET PO ONE (09:45)
--- NOTE | 2020-09-12 09:50 | PDOC ---
MODERATE SEDATION ASSESSMENT RISKS/ALTERNATIVES Risks/Alternatives Risks and alternatives of this type of sedation and procedure discussed with: RISK/ALTERNATIVES: Patient H & P ON CHART H & P H & P on chart and reviewed for co-morbid conditions and appropriate labs. H&P ON CHART: Yes STATUS PREG STATUS ASSESSED: N/A MEDS/ALLERGIES REVIEWED Meds/Allergies Reviewed Medications and Allergies including time and route of recently administered narcotics and sedatives. MEDS/ALLERGIES REVIEWED: Yes ASA RATING ASA RATING: III AIRWAY ASSESSMENT Airway Assessment Airway patency, oral function limitations, presence of caps, crowns, dentures, partials, and ability to extend neck assessed. AIRWAY ASSESSMENT: Yes MALLAMPATI SCORE MALLAMPATI SCORE: II PRE-SEDATION ASSESSMENT PRE-SEDATION ASSESSMENT: Yes CHRISTOPHER MARCELINO MD Sep 12, 2020 09:50
[2020-09-12 09:56] LABS: MICROCYTOSIS PRESENT; PLT ESTIMATE ADEQUATE (ADEQUATE)
[2020-09-12 09:57] LABS: POIKILOCYTOSIS MOD
[2020-09-12] MEDS ORDERED: ACETAMINOPHEN 325 MG TABLET. PO PRN (10:00)
[2020-09-12] MEDS ORDERED: fentaNYL PF VIAL 100 MCG/2 ML VIAL IV PRN (10:00)
[2020-09-12] MEDS ORDERED: NITROGLYCERIN SUBLINGUAL 0.4 MG BOTTLE OF 25. SL PRN (10:00)
[2020-09-12] MEDS ORDERED: 0.9 % SODIUM CHLORIDE 10 ML DISP.SYRIN. IV PRN (10:00)
--- NOTE | 2020-09-12 10:14 | CARD ---
MR#: [id number] Date of Study: 09/12/2020 Ordering Physician: CHRISTOPHER PATEL, Referring Physician: CHRISTOPHER PATEL, Tech: RT Melissa(R) APPROVED REPORT Technologist: RT Melissa(R) Nurse: Danae Salcido RN Procedure(s) performed: 1. Left heart catheterization and selective coronary angiography via right t ransradial approach 2. Successful complex PCI/drug-eluting stent placement to ostial/proximal segment of left circumflex artery Sedation Time: 65 Minutes Dose: 127 Gycm2 Fluoro Time: 17.3 minutes Contrast: 245 mL [id number] HISTORY : 74-year-old female with severe aortic stenosis was recently evaluated at the valve clinic and is pr esently scheduled for transcatheter aortic valve replacement (TAVR). She presented today for coronary angiography and possible PCI as part of pre-TAVR evaluation.. [facility] Clinical Frailty Scale [facility] Clinical Frailty Scale: Moderately Frail Heart Failure Heart Failure: No CASE TECHNIQUE IV conscious sedation was used throughout procedure with appropriate monitoring and was performed in the presence of a registered nurse who was an independent trained observer other than the physician p erforming the procedure. During this case, Fluoroscopy and low osmolar contrast were used for imaging . Specimen(s) Removed: No Estimated Blood loss: 15 cc's. PROCEDURE NARRATIVE After explaining the risk, benefits and alternative options, informed consent was obtained from patie nt. Patient was brought to the cardiac Location Manager and her right wrist was prepped and draped in the us ual fashion after confirming a positive modified Dilan's test. Arterial access was obtained in the [facility] and a 6 [place]ian sheath was inserted. After initial attempts to engage the left and right coronary arteries using 6 Jordanian Melo catheter were unsuccessful, these were engaged with a 6 Jordanian JL 3.5 and 6 Jordanian JR4 catheters and selective angiography was performed. Left ventriculogr aphy was not performed due to her known history of severe aortic stenosis and normal left ventricle s ystolic function on recent 2D echocardiogram. The following findings were noted: FINDINGS 1. The left main coronary artery arose from the left sinus of Valsalva, gave rise to the left anteri or descending and left circumflex arteries and did not show any significant stenosis. 2. The left anterior descending artery showed 30 to 40% stenosis in the proximal segment. 3. The left circumflex artery was a large-caliber vessel that showed 80% stenosis involving the osti um and proximal segment. 4. The right coronary artery was a dominant vessel arising from the right sinus of Valsalva that did not show any significant stenosis. INTERVENTION The left main coronary artery was engaged with a 6 Jordanian XB 3-1/2 guide catheter and the stenosis in the ostial/proximal segment of the left circumflex artery was crossed with a 0.014 inch Labtript er guidewire. A second Onevest guidewire was advanced into the left anterior descending artery sinc e we were intervening on ostial LCx. The stenosis in the ostial/proximal segment of LCx was predilat ed with a 3.5 x 12 mm Euphora balloon. The lesion was then successfully treated with a 4.0 x 12 mm r esolute Fuad drug-eluting stent. Patient had chest pain with EKG changes during balloon inflations w ithin the lesion confirming the significance of the stenosis. She was however chest pain-free at the end of procedure. Final angiography showed resolution of the stenosis to 0% with KRYSTAL-3 distal flow . Patient tolerated the procedure well. Hemostasis was achieved using TR band. There were no immed iate complications. KRYSTAL Flow KRYSTAL Flow (Pre-Intervention): KRYSTAL-3 KRYSTAL Flow (Post-Intervention): KRYSTAL-3 Conclusion 1. Severe single-vessel coronary artery disease 2. Successful PCI/drug-eluting stent placement to ostial/proximal segment of the left circumflex art liz followed Recommendations 1. Aspirin 81 mg daily for 1 month (patient on triple therapy) 2. Plavix 75 mg daily 3. Proceed with TAVR for severe aortic stenosis 4. Cardiovascular risk factor modification Signed by : Christopher Patel, Electronically Approved : 09/12/2020 10:13:58
[2020-09-12] MEDS: IV 1/2 NORMAL SALINE 1,000 ML IV SCH ×2 (11:12→20:00)
--- NOTE | 2020-09-12 13:14 | NUR ---
REPORT CALLED TO KELSE[address].PT IS STABLE, RIGHT RADIAL SITE, WITHOUT BLEEDING, DRESSING AND ARMBOARD INTACT. 1/2 NS @ 100CC/HR CONTINUES TO INFUSE PER LEFT FOREARM PIV. VSS- SLIGHTLY ENRIQUETA AT TIMES. DENIES PAIN OR ANY COMPLAINTS. STENT CARD SENT TO THE FLOOR AND GIVEN TO KELSEY LANE.
[2020-09-12] MEDS ORDERED: ATORVASTATIN CALCIUM 40 MG TABLET. PO SCH (21:00)
[2020-09-12] MEDS ORDERED: LISINOPRIL 20 MG TABLET PO PRN (21:30)
[2020-09-12] MEDS ORDERED: FAMOTIDINE 20 MG TABLET. PO SCH (22:00)
[2020-09-12] MEDS: APIXABAN 5 MG TABLET. PO SCH (22:13)
[2020-09-13 02:53] VITALS: BP 113/44
[2020-09-13] MEDS: IV 1/2 NORMAL SALINE 1,000 ML IV SCH (06:00)
[2020-09-13 07:00] VITALS: BP 120/82
[2020-09-13] MEDS ORDERED: ASPIRIN ENTERIC COATED 81 MG TABLET.DR. PO SCH (08:00)
[2020-09-13] MEDS ORDERED: CLOPIDOGREL BISULFATE 75 MG TABLET PO SCH (08:00)
[2020-09-13] MEDS ORDERED: ANTI-COAG MONITOR BY PHARMACY. MC PRN (08:30)
[2020-09-13 09:09] LABS: HEMATOCRIT 27.2 % (36.0-47.0); HEMOGLOBIN 8.2 g/dL (12.0-15.5); RED BLOOD COUNT 4.46 x10^6/uL (3.50-5.40); RED CELL DISTRIBUTION WIDTH 20.7 % (11.5-14.5); WHITE BLOOD COUNT 8.8 x10^3/uL (4.0-11.0)
--- NOTE | 2020-09-13 10:15 | PDOC3 ---
JULI GAUTAM PRECISION LENS CENTERER AND EDGER 09/13/20 1015: Discharge Summary Visit Information Date of Admission: Sep 12, 2020 Date of Discharge: Sep 13, 2020 Admitting Diagnosis: Severe , LHC pre TAVR, PAFIB, HTN, HLP, anemia Final Diagnosis Severe , LHC pre TAVR, PAFIB, HTN, HLP, CAD, S/P PCI, Microcytic hypochromic Anemia, Asymptomatic SB Brief Hospital Course Allergies Allergies Coded Allergies Type Severity Reaction Last Updated Verified ciprofloxacin Adverse Reaction Intermediate Nausea 01/31/20 Yes sulfamethoxazole Adverse Reaction Intermediate Nausea 01/31/20 Yes trimethoprim Adverse Reaction Intermediate Nausea 01/31/20 Yes Vital Signs Vital Signs Date Time Temp Pulse Resp B/P (MAP) Pulse Ox O2 Delivery O2 Flow Rate FiO2 09/13/20 07:00 97.9 63 16 120/82 (95) 97 Room Air 97.9 Lab Results Laboratory Tests Test 09/12/20 07:40 09/13/20 08:50 White Blood Count 9.3 x10^3/uL (4.0-11.0) 8.8 x10^3/uL (4.0-11.0) Red Blood Count 4.80 x10^6/uL (3.50-5.40) 4.46 x10^6/uL (3.50-5.40) Hemoglobin 8.8 g/dL (12.0-15.5) 8.2 g/dL (12.0-15.5) Hematocrit 29.3 % (36.0-47.0) 27.2 % (36.0-47.0) Mean Corpuscular Volume 61 fL (79-100) 61 fL (79-100) Mean Corpuscular Hemoglobin 18 pg (25-35) 18 pg (25-35) Mean Corpuscular Hemoglobin Concent 30 g/dL (31-37) 30 g/dL (31-37) Red Cell Distribution Width 20.7 % (11.5-14.5) 20.7 % (11.5-14.5) Platelet Count 210 x10^3/uL (140-400) 191 x10^3/uL (140-400) Neutrophils (%) (Auto) 78 % (31-73) Lymphocytes (%) (Auto) 13 % (24-48) Monocytes (%) (Auto) 8 % (0-9) Eosinophils (%) (Auto) 2 % (0-3) Basophils (%) (Auto) 1 % (0-3) Neutrophils # (Auto) 7.2 x10^3/uL (1.8-7.7) Lymphocytes # (Auto) 1.2 x10^3/uL (1.0-4.8) Monocytes # (Auto) 0.7 x10^3/uL (0.0-1.1) Eosinophils # (Auto) 0.2 x10^3/uL (0.0-0.7) Basophils # (Auto) 0.1 x10^3/uL (0.0-0.2) Platelet Estimate Adequate (ADEQUATE) Poikilocytosis Mod Microcytosis Present Prothrombin Time 13.3 SEC (11.7-14.0) Prothromb Time International Ratio 1.0 (0.8-1.1) Sodium Level 136 mmol/L (136-145) Potassium Level 4.4 mmol/L (3.5-5.1) Chloride Level 102 mmol/L (98-107) Carbon Dioxide Level 23 mmol/L (21-32) Anion Gap 11 (6-14) Blood Urea Nitrogen 19 mg/dL (7-20) Creatinine 0.9 mg/dL (0.6-1.0) Estimated GFR (Cockcroft-Gault) 60.9 Glucose Level 101 mg/dL (70-99) Calcium Level 8.9 mg/dL (8.5-10.1) Laboratory Tests Test 09/13/20 08:50 White Blood Count 8.8 x10^3/uL (4.0-11.0) Red Blood Count 4.46 x10^6/uL (3.50-5.40) Hemoglobin 8.2 g/dL (12.0-15.5) Hematocrit 27.2 % (36.0-47.0) Mean Corpuscular Volume 61 fL (79-100) Mean Corpuscular Hemoglobin 18 pg (25-35) Mean Corpuscular Hemoglobin Concent 30 g/dL (31-37) Red Cell Distribution Width 20.7 % (11.5-14.5) Platelet Count 191 x10^3/uL (140-400) Brief Hospital Course Ms Lu is a 74 yo female admitted for planned LHC pre TAVR. Her LAD showed 30 to 40% stenosis in the proximal segment. The left circumflex artery was a large- caliber vessel that showed 80% stenosis involving the ostium and proximal segment. She then had a successful PCI/drug-eluting stent placement to ostial/proximal segment of the left circumflex artery. She tolerated the procedure well. Denies any chest pain, or SOA. VSS. She has asymptomatic SB lowest upper 40s otherwise SR in the 70s. She also has microcytic hypochromic anemia with Hgb at 8.2 with no evidence of bleed but likely Fe defi anemia. This Hgb count is within her baseline by comparison. discussed with her PCP Brittany Tracy and will start her on bid kateryna supplement and will have H/H on September 18. Right radial arteriotomy site intact, neurovascualr status to RUE intact. LSCTA, no peripheral edema. Notable for 4-5/6 systolic murmur to ANALI border related to severe . She is ambulatory without difficulty. Continue eliquis for stroke prevention. baby ASA for 1 month and plavix indefinitely. She will have future TAVR at [facility]. Continue secondary prevention measures. Cardiac rehab. Follow up in office as scheduled. Discharge Information Condition at Discharge: Stable Follow Up: Weeks (2) Disposition/Orders: D/C to Home Scheduled Apixaban (Eliquis) 5 Mg Tablet, 5 MG PO BID for Atrial fibrillation for 30 Days, #60 Ref 11 Prescribed by: MELVA ZUNIGA MD on 02/01/18 0757 Last Action: Continued on 09/12/202138 by Rommel Leach Aspirin (Aspir-Low) 81 Mg Tablet.dr, 81 MG PO DAILY for TIA, (Reported) Entered as Reported by: JORGITO CHAMBERLAIN on 01/26/18 0950 Last Action: Reviewed on 09/12/20811 by Tayler Paz Cholecalciferol (Vitamin D3) (Vitamin D3) 5,000 Unit Tablet, 5,000 UNIT PO DAILY for low vit D level, (Reported) Entered as Reported by: CHAYO ARREOLA on 01/30/18 0604 Last Action: Reviewed on 09/12/20811 by Tayler Paz Clopidogrel Bisulfate (Clopidogrel) 75 Mg Tablet, 75 MG PO DAILYWBKFT for CAD for 30 Days, #30 Ref 3 Prescribed by: JULI GAUTAM on 09/13/20 1042 Dexlansoprazole (Dexilant) 60 Mg Cap., 60 MG PO BID for gerd, (Reported) Entered as Reported by: CHAYO ARREOLA on 08/10/2020 Last Action: Reviewed on 09/12/20811 by Tayler Paz Ferrous Sulfate (Ferrous Sulfate) 325 Mg Tablet, 1 TAB PO BID for anemia for 30 Days, #60 Ref 3 Prescribed by: JULI GAUTAM on 09/13/20 1042 Lactobacillus Acidophilus (Probiotic) 1 Each Capsule, 1 EACH PO DAILY for colon health, (Reported) Entered as Reported by: TORO FRAZIER on 01/06/19945 Last Action: Reviewed on 09/12/20811 by Tayler Paz Metoprolol Succinate (Toprol XL) 50 Mg Tab.er.24h, 25 MG PO DAILY for FOR HYPERTENSION, (Reported) Entered as Reported by: TORO FRAZIER on 01/06/19945 Last Action: Reviewed on 09/12/20811 by Tayler Paz Rosuvastatin Calcium (Crestor) 40 Mg Tablet, 20 MG PO HS for HLD, (Reported) Entered as Reported by: JORGITO CHAMBERLAIN on 04/27/15 151 Last Action: Converted on 09/12/201701 by DOMINGO MATAMOROS [domperidone] , 10 MG PO BID for nausea/stomach upset, (Reported) Entered as Reported by: TORO FRAZIER on 01/06/19945 Last Action: Converted on 09/12/202106 by Rommel Leach Scheduled PRN Benazepril Hcl (Benazepril Hcl) 20 Mg Tablet, 20 MG PO HS PRN for HTN, (Reported) Entered as Reported by: JORGITO CHAMBERLAIN on 01/26/18 0950 Last Action: Edited on 09/12/202133 by Rommel eLach Discontinued Medications Diltiazem HCl (Diltiazem 24Hr Cd) 240 Mg Cap.er.24h, 240 MG PO DAILY for blood pressure control, (Reported) Entered as Reported by: TORO FRAZIER on 01/06/19945 Last Action: Reviewed on 09/12/20811 by Tayler Paz Famotidine (Famotidine) 40 Mg Tablet, 1 TAB PO QHS for gerd, (Reported) Entered as Reported by: DOMINGO MATAMOROS on 02/07/20 1009 Last Action: Converted on 09/12/202106 by Rommel Leach Patient Instructions Patient Instructions GENERAL INSTRUCTIONS: 1. Your dressing should be removed prior to leaving the hospital. 2. It is OK to shower the day after your procedure. 3. If you received stents, be sure to carry your stent information card with you in your wallet/purse at all times. 4. Call the office immediately at [phone] if you notice any fever or if there is redness, worsening tenderness/pain, increased bruising, or drainage from the puncture site. 5. Should you have bleeding from the site, lie down immediately & put pressure on the site. The pressure should be hard enough to stop the bleeding. Have the nearest person call 911. DO NOT try to drive to the ER with active bleeding. 6. If you notice a change in color, coolness to touch, or loss of feeling in the affected extremity, come to the emergency room. Please have someone drive you or call 911 if no one is available. DO NOT drive yourself. 7. If you normally take glucophage (metformin), please do not take this medicine for 48 hours following your procedure. 8. DO NOT STOP TAKING YOUR PLAVIX OR ASPIRIN UNLESS IT IS CLEARED BY A OFFLINE CUTTER OF YOUR COOKING TEACHER AT OUR OFFICE. 9. QUIT SMOKING: the [place] [employer], [place] [employer], & [place] [employer] have cessation resources available on their websites 10. Please have someone available to drive you home from the hospital as you may be limited by sedation medications given during the procedure. Radial Artery (Wrist) access: 1. No pushing, pulling, lifting, typing, or anything that requires repetitive use/movement of the affected wrist for 3 days following your procedure. 2. OK to drive the day following your procedure. (This is because of effects of sedating medications.) Call the office at [phone] for any questions or concerns. Justicifation of Admission Dx: Justifications for Admission: Justification of Admission Dx: Yes CHRISTOPHER MARCELINO MD 09/13/202038: Discharge Summary Brief Hospital Course Brief Hospital Course Agree with LOGGING ENGINEER's assessment and plan. s/p PCI/MARLENY to LCX yesterday, presently stable and CP free. Continue ASA for one month and plavix and eliquis thereafter. Tele did not show any significant arrhythmias. Follow up with PCP for anemia and Valve clinic for TAVR/ Discharge Information Scheduled Apixaban (Eliquis) 5 Mg Tablet, 5 MG PO BID for Atrial fibrillation for 30 Days, #60 Ref 11 Prescribed by: MELVA ZUNIGA MD on 02/01/187 Last Action: Continued on 09/12/202138 by Rommel Leach Aspirin (Aspir-Low) 81 Mg Tablet., 81 MG PO DAILY for TIA, (Reported) Entered as Reported by: JORGITO CHAMBERLAIN on 01/26/18 0950 Last Action: Reviewed on 09/12/20811 by Tayler Paz Cholecalciferol (Vitamin D3) (Vitamin D3) 5,000 Unit Tablet, 5,000 UNIT PO DAILY for low vit D level, (Reported) Entered as Reported by: CHAYO ARREOLA on 01/30/18 0604 Last Action: Reviewed on 09/12/20811 by Tayler Paz Clopidogrel Bisulfate (Clopidogrel) 75 Mg Tablet, 75 MG PO DAILYWBKFT for CAD for 30 Days, #30 Ref 3 Prescribed by: JULI GAUTAM on 09/13/20 1042 Dexlansoprazole (Dexilant) 60 Mg Jun., 60 MG PO BID for gerd, (Reported) Entered as Reported by: CHAYO ARREOLA on 08/10/20 0620 Last Action: Reviewed on 09/12/20811 by Tayler Paz Ferrous Sulfate (Ferrous Sulfate) 325 Mg Tablet, 1 TAB PO BID for anemia for 30 Days, #60 Ref 3 Prescribed by: JULI GAUTAM on 09/13/20 1042 Lactobacillus Acidophilus (Probiotic) 1 Each Capsule, 1 EACH PO DAILY for colon health, (Reported) Entered as Reported by: TORO FRAZIER on 01/06/19 0946 Last Action: Reviewed on 09/12/20811 by Tayler Paz Metoprolol Succinate (Toprol XL) 50 Mg Tab.er.24h, 25 MG PO DAILY for FOR HYPERTENSION, (Reported) Entered as Reported by: TORO FRAZIER on 01/06/19945 Last Action: Reviewed on 09/12/20811 by Tayler Paz Rosuvastatin Calcium (Crestor) 40 Mg Tablet, 20 MG PO HS for HLD, (Reported) Entered as Reported by: JORGITO CHAMBERLAIN on 04/27/15 1511 Last Action: Converted on 09/12/201701 by DOMINGO MATAMOROS [domperidone] , 10 MG PO BID for nausea/stomach upset, (Reported) Entered as Reported by: TORO FRAZIER on 01/06/19945 Last Action: Converted on 09/12/202106 by Rommel Leach Scheduled PRN Benazepril Hcl (Benazepril Hcl) 20 Mg Tablet, 20 MG PO HS PRN for HTN, (Reported) Entered as Reported by: JORGITO CHAMBERLAIN on 01/26/18 0950 Last Action: Edited on 09/12/202133 by Rommel Leach Discontinued Medications Diltiazem HCl (Diltiazem 24Hr Cd) 240 Mg Cap.er.24h, 240 MG PO DAILY for blood pressure control, (Reported) Entered as Reported by: TORO FRAZIER on 01/06/19945 Last Action: Reviewed on 09/12/20811 by Tayler Paz Famotidine (Famotidine) 40 Mg Tablet, 1 TAB PO QHS for gerd, (Reported) Entered as Reported by: DOMINGO MATAMOROS on 02/07/20 1009 Last Action: Converted on 09/12/202106 by JULI Huynh APRN Sep 13, 2020 10:15 CHRISTOPHER MARCELINO MD Sep 13, 2020 20:39
--- NOTE | 2020-09-13 10:35 | NUR ---
SS following for discharge planning. SS reviewed pt chart and discussed with pt RN. Pt is from home with spouse and is currently on room air. Pt had heart cath on 09/12/2020. Discharge plan is to home when medically ready for discharge. SS will continue to follow for discharge planning.
[2020-09-13] MEDS ORDERED: CLOP75TA PO (10:42)
[2020-09-13] MEDS ORDERED: FERR325T14 PO (10:42)
[2020-09-13 11:00] VITALS: BP 139/44
[2020-09-13] MEDS: APIXABAN 5 MG TABLET. PO SCH (11:24)
--- NOTE | 2020-09-13 11:45 | NUR ---
Discharge Note: ANILA BATES Discharge instructions and discharge home medications reviewed with Patient and a copy given. All questions have been answered and understanding verbalized. Radial cath site dressing and armboard removed before discharge. No redness, swelling, or pain at site. Stent card given to patient at discharge. The following instructions and handouts were given: Angioplasty with stent, radial site care, plavix, ferrous sulfate, and cardiac rehab Discontinued lines and drains: Peripheral IV intact. Patient discharged to Home or Self Care with Spouse via Ambulated
[2020-09-13] MEDS ORDERED: FAMOTIDINE 20 MG TABLET. PO SCH (21:00)
== END 2020-09-13 11:45 | disposition home or self-care (01) ==
LOC: CCL 06:59 → 2 NORTH 09:35
PROVIDERS: ADMIT Internal Medicine Cardiovascular Disease; ATTEND Internal Medicine Cardiovascular Disease
DX: I25.10 Atherosclerotic heart disease of native coronary artery without angina pectoris (principal); I35.0 Nonrheumatic aortic (valve) stenosis; I48.0 Paroxysmal atrial fibrillation; D50.9 Iron deficiency anemia, unspecified; K21.9 Gastro-esophageal reflux disease without esophagitis; E78.5 Hyperlipidemia, unspecified; I10 Essential (primary) hypertension; Z79.01 Long term (current) use of anticoagulants; Z79.82 Long term (current) use of aspirin; Z95.5 Presence of coronary angioplasty implant and graft; Z79.899 Other long term (current) drug therapy
CPT/HCPCS: 36415; 80048; 85025; 85027; 85610; 92928; 93454; 96360; 96361; 99152; 99153; C1725; C1769; C1874; C1887; C1894; G0378; G0379; J0583; J1644; J2250; J2405; J3010; J3490; Q9967

== ENCOUNTER 2021-02-14 16:06 | Emergency (ER) | payer BC, MEDICARE ==
[~2021-02-14] VITALS: Ht 162.6 cm; Wt 76.8 kg
[~2021-02-14 16:06] MED LIST changes: -BENA20TA4 PO; +BENA20TA84 PO; +CLOP75TA PO; +FERR325T14 PO
[2021-02-14] MEDS ORDERED: ASPIRIN CHEWABLE 81 MG TABLET. PO ONE (17:15)
[2021-02-14] MEDS ORDERED: IV NORMAL SALINE 1000ML BAG 1,000 ML IV SCH (17:15)
[2021-02-14] MEDS ORDERED: NITROGLYCERIN SUBLINGUAL 0.4 MG BOTTLE OF 25. SL PRN (17:45)
--- NOTE | 2021-02-14 18:00 | RAD ---
Exam: Chest one view INDICATION: Chest pain TECHNIQUE: Frontal view of the chest Comparisons: 10/10/2020 FINDINGS: Pacer with leads remaining the right atrium and ventricle. Replaced cardiac valve is noted. The cardiomediastinal silhouette and pulmonary vessels are within normal limits. The lung and pleural spaces are clear. IMPRESSION: No acute pulmonary process. Electronically signed by: Lidia Machuca MD (02/14/2021 5:58 PM) [place]
[2021-02-14 18:20] LABS: BASO % 1 % (0-3); EOS # 0.1 x10^3/uL (0.0-0.7); EOS % 1 % (0-3); HEMATOCRIT 40.4 % (36.0-47.0); HEMOGLOBIN 13.1 g/dL (12.0-15.5); LYMPH % 12 % (24-48); MEAN CORPUSCULAR HEMOGLOBIN 25 pg (25-35); MEAN CORPUSCULAR HGB CONC 32 g/dL (31-37); MEAN CORPUSCULAR VOLUME 79 fL (79-100); MONO # 0.5 x10^3/uL (0.0-1.1); MONO % 7 % (0-9); NEUT # 6.4 x10^3/uL (1.8-7.7); NEUT % 79 % (31-73); PLATELET COUNT 149 x10^3/uL (140-400); RED BLOOD COUNT 5.13 x10^6/uL (3.50-5.40); RED CELL DISTRIBUTION WIDTH 16.5 % (11.5-14.5)
--- NOTE | 2021-02-14 18:37 | PHYS DOC ---
Past Medical History Past Medical History: Cancer, CVA, Diverticulitis, Diverticulosis, GERD, High Cholesterol, Hypertension, Other Additional Past Medical Histor: RT BREAST & RT EAR CA, AORTIC STENOSIS, OSTEOARTHRITIS (THOM MORALES APRN) Past Surgical History: Angioplasty, Appendectomy, Cancer Surgery, Rachael cystectomy, Hysterectomy, Other Additional Past Surgical Histo: BREAST LUMPECTOMY, EAR CA REMOVAL, EXP LAP, LEFT KNEE AND LEFT FOOT REPAIR (THOM MORALES APRN) Smoking Status: Never Smoker Alcohol Use: None Drug Use: None (THOM MORALES APRN) General Adult EDM: Chief Complaint: CHEST PAIN HPI: HPI: Patient is a 75 year old female who presents with epigastric burning, chest pressure. Pain radiates to patient's back and had dizziness. Patient states "the last time this happened I had to have a stent placed". Patient reports pain feels exactly the same. Reports one episode of vomiting. Symptoms started at 1430 while patient was sitting at home watching TV. Patient states that she called her director cpg, Dr. Patel who advised her to be seen in the ER. Patient been fully vaccinated for COVID-19. Reports history of (THOM MORALES WORD PROCESSING SPECIALIST) Review of Systems: Review of Systems: Constitutional: Denies fever or chills. [] Eyes: Denies change in visual acuity. [] HENT: Denies nasal congestion or sore throat. [] Respiratory: Denies cough or shortness of breath. [] Cardiovascular: Denies chest pain or edema. [] GI: Denies abdominal pain, nausea, vomiting, bloody stools or diarrhea. [] : Denies dysuria. [] Musculoskeletal: Denies back pain or joint pain. [] Integument: Denies rash. [] Neurologic: Denies headache, focal weakness or sensory changes. [] Endocrine: Denies polyuria or polydipsia. [] Lymphatic: Denies swollen glands. [] Psychiatric: Denies depression or anxiety. [] (THOM MORALES WORD PROCESSING SPECIALIST) Heart Score: C/O Chest Pain: Yes HEART Score for Chest Pain: HEART Score for Chest Pain Response (Comments) Value History Moderately Suspicious 1 ECG Normal 0 Age > 65 2 Risk Factors 1 or 2 Risk Factors 1 Troponin < Normal Limit 0 Total 4 Risk Factors: Risk Factors: DM, Current or recent (<one month) smoker, HTN, HLP, family history of CAD, obesity. Risk Scores: Score 0 - 3: 2.5% MACE over next 6 weeks - Discharge Home Score 4 - 6: 20.3% MACE over next 6 weeks - Admit for Clinical Observation Score 7 - 10: 72.7% MACE over next 6 weeks - Early Invasive Strategies (THOM MORALES APRN) Current Medications: Current Medications Medications (Trade) Dose Ordered Sig/S[place] Start Time Stop Time Status Last Admin Dose Admin Aspirin (Aspirin Chewable) 324 mg 1X ONCE 02/14/21 17:15 02/14/21 17:32 DC Nitroglycerin (Nitrostat) 0.4 mg PRN Q5MIN PRN 02/14/21 17:45 02/14/21 18:11 0.4 MG Sodium Chloride 1,000 ml @ 1,000 mls/hr Q1H 02/14/21 17:15 02/14/21 18:29 DC 02/14/21 18:10 1,000 MLS/HR (THOM MORALES APRN) Allergies: Allergies: Allergies Coded Allergies Type Severity Reaction Last Updated Verified codeine Allergy Intermediate 10/08/20 Yes ciprofloxacin Adverse Reaction Intermediate Nausea 01/31/20 Yes sulfamethoxazole Adverse Reaction Intermediate Nausea 01/31/20 Yes trimethoprim Adverse Reaction Intermediate Nausea 01/31/20 Yes (THOM MORALES APRN) Physical Exam: PE: Constitutional: Well developed, well nourished, no acute distress, non-toxic appearance. [] HENT: Normocephalic, atraumatic, bilateral external ears normal, oropharynx moist, no oral exudates, nose normal. [] Eyes: PERRLA, EOMI, conjunctiva normal, no discharge. [] Neck: Normal range of motion, no tenderness, supple, no stridor. [] Cardiovascular:Heart rate regular rhythm, no murmur [] Lungs & Thorax: Bilateral breath sounds clear to auscultation [] Abdomen: Bowel sounds normal, soft, no tenderness, no masses, no pulsatile masses. [] Skin: Warm, dry, no erythema, no rash. [] Back: No tenderness, no CVA tenderness. [] Extremities: No tenderness, no cyanosis, no clubbing, ROM intact, no edema. [] Neurologic: Alert and oriented X 3, normal motor function, normal sensory function, no focal deficits noted. [] Psychologic: Affect normal, judgement normal, mood normal. [] (THOM MORALES APRN) Current Patient Data: Labs: Laboratory Tests Test 02/14/21 18:00 White Blood Count 8.0 x10^3/uL (4.0-11.0) Red Blood Count 5.13 x10^6/uL (3.50-5.40) Hemoglobin 13.1 g/dL (12.0-15.5) Hematocrit 40.4 % (36.0-47.0) Mean Corpuscular Volume 79 fL (79-100) Mean Corpuscular Hemoglobin 25 pg (25-35) Mean Corpuscular Hemoglobin Concent 32 g/dL (31-37) Red Cell Distribution Width 16.5 % (11.5-14.5) H Platelet Count 149 x10^3/uL (140-400) Neutrophils (%) (Auto) 79 % (31-73) H Lymphocytes (%) (Auto) 12 % (24-48) L Monocytes (%) (Auto) 7 % (0-9) Eosinophils (%) (Auto) 1 % (0-3) Basophils (%) (Auto) 1 % (0-3) Neutrophils # (Auto) 6.4 x10^3/uL (1.8-7.7) Lymphocytes # (Auto) 1.0 x10^3/uL (1.0-4.8) Monocytes # (Auto) 0.5 x10^3/uL (0.0-1.1) Eosinophils # (Auto) 0.1 x10^3/uL (0.0-0.7) Basophils # (Auto) 0.0 x10^3/uL (0.0-0.2) Laboratory Tests 02/14/21 18:00 Vital Signs: Vital Signs Date Time Temp Pulse Resp B/P (MAP) Pulse Ox O2 Delivery O2 Flow Rate FiO2 02/14/21 18:11 70 185/79 02/14/21 16:50 98.2 18 99 Room Air 98.2 (THOM MORALES APRN) EKG: EKG: HR 73 BPM, Sinus Rhythm. No stemi[] (THOM MORALES APRN) Radiology/Procedures: Radiology/Procedures: []Exam: Chest one view INDICATION: Chest pain TECHNIQUE: Frontal view of the chest Comparisons: 10/10/2020 FINDINGS: Pacer with leads remaining the right atrium and ventricle. Replaced cardiac valve is noted. The cardiomediastinal silhouette and pulmonary vessels are within normal limits. The lung and pleural spaces are clear. IMPRESSION: No acute pulmonary process. Electronically signed by: Lidia Machuca MD (02/14/2021 5:58 PM) [facility] (THOM MORALES APRN) Course & Med Decision Making: Course & Med Decision Making Pertinent Labs and Imaging studies reviewed. (See chart for details) [] 75-year-old female who presents with epigastric chest pain since 1430. Work- up in ER consisted of labs, urinalysis, chest x-ray, EKG, troponin. All labs were unremarkable. Chest x-ray is unremarkable. Troponin that was drawn at 1800 was negative. No indication for second troponin needed due to onset time. Held aspirin due to patient being on blood thinners. Patient was given 1 nitro in the ER. Nitro did not affect or change discomfort. I discussed all results with patient. Patient was concerned about her blood pressure being in the 180s. Patient has not taken her blood pressure medication that is scheduled for this evening. Patient is asymptomatic. Advised patient to take her blood pressure medicine when she returns home. Patient is still reporting some epigastric discomfort. Patient given GI cocktail to help with symptoms. I spoke with Dr. Patel regarding patient's case. Dr. Patel recommended patient follow-up in the morning and patient was appropriate to be seen on an outpatient basis. Most likely is experiencing symptoms from GERD, which patient has a history of. I discussed with patient the importance of calling Dr. Patel in the morning and making sure keeps her follow-up appointment that is scheduled. Patient states that she understands discharge instructions. Discussed return precautions in length with patient. Advised patient to return if she has an increase in chest pain, shortness of breath, nausea and vomiting. Patient is hemodynamically stable upon disposition. (THOM MORALES APRN) Course & Med Decision Making Patients Care and treatment plan provided by ER Nurse Practitioner. I was available for consult. Patient's chart reviewed. (MARLENY ZULUAGA DO) Morales Disclaimer: Morales Disclaimer: This electronic medical record was generated, in whole or in part, using a voice recognition dictation system. (THOM MORALES APRN) Departure Departure Impression: Primary Impression: Chest pain Qualified Codes: R07.9 - Chest pain, unspecified Disposition: HOME / SELF CARE / HOMELESS Condition: STABLE Referrals: ADÁN MCMAHON APRN (PCP) Patient Instructions: Chest Pain (Nonspecific), [id number], Diet for Gastroesophageal Reflux Disease, Adult, [id number] Additional Instructions: You are seen in the emergency room for epigastric pain. All of your labs were unremarkable. I spoke with Dr. Patel your director cpg who wants to see you in his office first thing in the morning. Please make sure that you keep your appointment for the morning. Make sure that you take your blood pressure medication that is scheduled for this evening when you return home. Please return to the emergency room if you have worsening symptoms or concerns such as increase in chest pain, shortness of breath. EMERGENCY DEPARTMENT GENERAL DISCHARGE INSTRUCTIONS Thank you for coming to [facility] Emergency Department (ED) today and trusting us with you care. We trust that you had a positive experience in our Emergency Department. If you wish to speak to the department management, you may call the Director at [phone]. YOUR FOLLOW UP INSTRUCTIONS ARE FOLLOWS: 1. Do you have a private Doctor? If you do not have a private doctor, please ask for a resource list of physicians or clinics that may be able to assist you with follow up care. 2. The Emergency Physicain has interpreted your x-rays. The X-Ray specialist will also review them. If there is a change in the findings, you will be notified in 48 hours when at all possible. 3. A lab test or culture has been done, your results will be reviewed and you will be notified if you need a change in treatment. ADDITIONAL INSTRUCTIONS AND INFORMATION: 1. Your care today has been supervised by a physician who is specially trained in emergency care. Many problems require more than one evaluation for a complete diagnosis and treatment. We recommend that you schedule your follow up appointment as recommended to ensure complete treatment of you illness or injury. If you are unable to obtain follow up care and continue to have a problem, or if your condition worsens, we recommend that you return to the ED. 2. We are not able to safely determine your condition over the phone nor are we able to give sound medical advice over the phone. For these safety reasons, if you call for medical advice we will ask you to come to the ED for further evaluation. 3. If you have any questions regarding these discharge instructions please call the ED at [phone]. SAFETY INFORMATION: In the interest of safety, wellness, and injury prevention; we encourage you to wear your sealbelt, if you smoke; quite smoking, and we encourage family to use a protective helmet for bicycling and other sporting events that present an increased risk for head injury. IF YOUR SYMPTOMS WORSEN OR NEW SYMPTOMS DEVELOP, OR YOU HAVE CONCERNS ABOUT YOUR CONDITION; OR IF YOUR CONDITION WORSENS WHILE YOU ARE WAITING FOR YOUR FOLLOW UP APPOINTMENT; EITHER CONTACT YOUR PRIMARY CARE DOCTOR, THE PHYSICIAN WHOSE NAME AND NUMBER YOU WERE GIVEN, OR RETURN TO THE ED IMMEDIATELY. THOM MORALES APRN Feb 14, 2021 18:37 MARLENY ZULUAGA DO Feb 15, 2021 06:06
[2021-02-14 19:01] LABS: CALCIUM 9.4 mg/dL (8.5-10.1); CREATININE 0.7 mg/dL (0.6-1.0); GFR 81.1; POTASSIUM 3.7 mmol/L (3.5-5.1)
[2021-02-14 19:06] LABS: ALBUMIN 3.9 g/dL (3.4-5.0); ALBUMIN/GLOBULIN RATIO 1.1 (1.0-1.7); MAGNESIUM 2.3 mg/dL (1.8-2.4); TOTAL BILIRUBIN 0.9 mg/dL (0.2-1.0); TOTAL PROTEIN 7.5 g/dL (6.4-8.2)
--- NOTE | 2021-02-14 19:21 | EKG ---
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
[2021-02-14] MEDS ORDERED: LIDO:MAALOX 1:1 20 ML SINGLE DOSE. SWSW ONE ×2 (20:00)
[2021-02-14 20:30] VITALS: BP 187/78
== END 2021-02-14 20:40 | disposition home or self-care (01) ==
LOC: ER 16:06
DX: R07.89 Other chest pain (principal); R10.13 Epigastric pain; R42 Dizziness and giddiness; K21.9 Gastro-esophageal reflux disease without esophagitis; E78.00 Pure hypercholesterolemia, unspecified; I10 Essential (primary) hypertension; Z86.73 Personal history of transient ischemic attack (TIA), and cerebral infarction without residual deficits; Z95.5 Presence of coronary angioplasty implant and graft; Z90.89 Acquired absence of other organs; Z90.49 Acquired absence of other specified parts of digestive tract; Z90.710 Acquired absence of both cervix and uterus; Z88.5 Allergy status to narcotic agent; Z88.1 Allergy status to other antibiotic agents; Z88.2 Allergy status to sulfonamides
CPT/HCPCS: 36415; 71045; 80053; 83690; 83735; 83880; 84484; 85025; 93005; 96360; 99285; J7030

== ENCOUNTER → 2021-05-21 | Outpatient (CLI) | payer BC, MEDICARE ==
--- NOTE | 2021-05-21 15:03 | CARD ---
MR#: [id number] Date of Study: 05/21/2021 Ordering Physician: CHRISTOPHER PATEL, Referring Physician: Shan BOYKIN: Aroldo Ortiz [facility] APPROVED REPORT EXAM: Two-dimensional and M-mode echocardiogram with Doppler and color Doppler. Other Information Quality : FairHR: 74bpm Rhythm : NSR INDICATION Atrial Fibrillation Surgery/Intervention Status/Post Aortic Valve Replacement: Bioprosthetic ICD/Pacemaker: S/P aortic root and valve replacement. RISK FACTORS Hypertension Obesity Hyperlipidemia 2D DIMENSIONS Left Atrium(2D)5.6 (1.6-4.0cm)IVSd1.3 (0.7-1.1cm) Aortic Root(2D)2.8 (2.0-3.7cm)LVDd4.4 (3.9-5.9cm) LVOT Diameter1.9 (1.8-2.4cm)PWd1.2 (0.7-1.1cm) LA Aktymm20 (18-58mL)LVDs2.2 (2.5-4.0cm) FS (%) 48.8 %SV68.8 ml LVEF(%)80.4 (>50%) Aortic Valve AoV Peak Aubrey.198.6cm/sAoV VTI48.4cm AO Peak GR.15.8mmHgLVOT Peak Aubrey.104.6cm/s LVOT VTI 26.99cmAO Mean GR.9mmHg ELI (VMAX)1.35or4KBC (VTI)1.64cm2 Mitral Valve MV E Prsadmru33.1cm/sMV DECEL [id number] MV A Xfogsoaj439.7cm/sMV E Mean Gr.4mmHg MV [id number]/A Ratio0.6 MVA (PHT)1.88cm2 TDI E/Lateral E'12.6E/Medial E'15.7 Pulmonary Valve PV Peak Mgvguzon229.2cm/sPV Peak Grad.4mmHg Tricuspid Valve TR P. Lpzkxsaf686os/sTR Peak Gr.31mmHg Pulmonary Vein S1 Eapweqkl03.0cm/sD2 Taaygfth83.3cm/s LEFT VENTRICLE The left ventricle is normal size. There is mild concentric left ventricular hypertrophy. The left ve ntricular systolic function is normal. The ejection fraction is 60-65%. There is normal LV segmental wall motion. Transmitral Doppler flow pattern is Grade I-abnormal relaxation pattern. No left ventric le thrombus noted on this study. There is no ventricular septal defect visualized. There is no left v entricular aneurysm. There is no mass noted in the left ventricle. RIGHT VENTRICLE The right ventricle is normal size. There is normal right ventricular wall thickness. The right ventr icular systolic function is normal. ATRIA The left atrium is moderately dilated. The right atrium size is normal. The interatrial septum is int act with no evidence for an atrial septal defect or patent foramen ovale as noted on 2-D or Doppler i maging. AORTIC VALVE Doppler and Color Flow revealed trace aortic regurgitation. There is no significant aortic valvular s tenosis. The prosthetic aortic valve appears well seated. MITRAL VALVE The mitral valve is thickened but opens well. Mitral annular calcification is mild. There is no evide nce of mitral valve prolapse. There is no mitral valve stenosis. Doppler and Color-flow revealed trac e mitral regurgitation. TRICUSPID VALVE The tricuspid valve is normal in structure and function. Doppler and Color Flow revealed trace tricus pid regurgitation. The PA pressure was estimated at 32 mmHg. There is no tricuspid valve prolapse or vegetation. There is no tricuspid valve stenosis. PULMONIC VALVE The pulmonary valve is normal in structure and function. Doppler and Color Flow revealed no pulmonic valvular regurgitation. There is no pulmonic valvular stenosis. GREAT VESSELS The aortic root is normal in size. The ascending aorta is normal in size. The pulmonary artery is nor mal. The IVC is not well seen. Difficult subcostal views. PERICARDIAL EFFUSION There is no pleural effusion. There is no evidence of significant pericardial effusion. Critical Notification Critical Value: No <Conclusion> The left ventricular systolic function is normal. The ejection fraction is 60-65%. There is normal LV segmental wall motion. Transmitral Doppler flow pattern is Grade I-abnormal relaxation pattern. The bioprosthetic aortic valve appears well seated and functiong well. Mean gradient 9 mmHg. Trace mitral regurgitation. Trace tricuspid regurgitation. The PA pressure was estimated at 32 mmHg. There is no evidence of significant pericardial effusion. Signed by : Christpoher Patel, Electronically Approved : 05/21/2021 15:03:23
== END ==
LOC: ECHO 10:12
PROVIDERS: ATTEND Internal Medicine Cardiovascular Disease
DX: I34.0 Nonrheumatic mitral (valve) insufficiency (principal); I51.7 Cardiomegaly; Z95.2 Presence of prosthetic heart valve; I48.91 Unspecified atrial fibrillation
CPT/HCPCS: 93306; C8929

== ENCOUNTER 2021-06-30 08:43 | Emergency (ER) | payer BC, MEDICARE ==
[~2021-06-30] VITALS: Ht 162.6 cm; Wt 2.0 kg
[2021-06-30] MEDS ORDERED: KETOROLAC 15 MG/ML VIAL. IVP ONE (10:00)
[2021-06-30] MEDS ORDERED: IV NORMAL SALINE 1000ML BAG 1,000 ML IV ONE (10:00)
--- NOTE | 2021-06-30 10:05 | RAD ---
Abdominal and Pelvis CT, Without Contrast: History: Reason: LLQ abdominal pain / Spl. Instructions: / History: Comparison: None. Procedure: Axial images are obtained of the abdomen and pelvis, without IV or oral contrast. Oral Contrast: No Findings: Evaluation of solid organs is limited without contrast. The gallbladder isn't seen and likely removed. The appendix is not visualized. The colon is partially collapsed limiting its evaluation. Liver: Normal. Spleen: Normal. Pancreas: Normal. Adrenal Glands: Normal. Kidneys: There is a small cortical calcification in the upper pole on the right. There is no free air or free fluid. There is no lymphadenopathy. The urinary bladder appears normal. There is no pericolonic inflammation identified. Impression: No acute findings. End impression PQRS Compliance Statement: One or more of the following individualized dose reduction techniques were utilized for this examinat ion: 1. Automated exposure control 2. Adjustment of the mA and/or kV according to patient size 3. Use of iterative reconstruction technique Electronically signed by: Aroldo Lezama III, MD (06/30/2021 10:03 AM) [facility]
[2021-06-30 10:09] LABS: BASO # 0.1 x10^3/uL (0.0-0.2); BASO % 1 % (0-3); EOS # 0.1 x10^3/uL (0.0-0.7); EOS % 1 % (0-3); HEMATOCRIT 37.9 % (36.0-47.0); HEMOGLOBIN 12.5 g/dL (12.0-15.5); LYMPH % 16 % (24-48); MEAN CORPUSCULAR HEMOGLOBIN 26 pg (25-35); MEAN CORPUSCULAR HGB CONC 33 g/dL (31-37); MEAN CORPUSCULAR VOLUME 79 fL (79-100); MONO # 0.5 x10^3/uL (0.0-1.1); MONO % 7 % (0-9); NEUT # 4.7 x10^3/uL (1.8-7.7); NEUT % 75 % (31-73); PLATELET COUNT 144 x10^3/uL (140-400); RED BLOOD COUNT 4.82 x10^6/uL (3.50-5.40); WHITE BLOOD COUNT 6.3 x10^3/uL (4.0-11.0)
--- NOTE | 2021-06-30 10:19 | PHYS DOC ---
Past Medical History Past Medical History: Cancer, CVA, Diverticulitis, Diverticulosis, GERD, High Cholesterol, Hypertension, Other Additional Past Medical Histor: RT BREAST & RT EAR CA, AORTIC STENOSIS, OSTEOARTHRITIS Past Surgical History: Coronary Bypass Surgery, Knee Replacement, Pacemaker Additional Past Surgical Histo: aortic valve Smoking Status: Never Smoker Alcohol Use: None Drug Use: None General Adult EDM: Chief Complaint: BACK PAIN OR INJURY HPI: HPI: Patient is a 75-year-old female who presents today with left back and abdominal pain. Patient states the pain has been ongoing for the past 10 to 14 days she saw her primary care physician, she states that she was given a prescription for an antibiotic for her urinary tract infection, she states the pain has not improved and she presents here today for further evaluation and management. Patient denies chest pain, shortness of breath, fever but does state that she has had chills, denies nausea, vomiting, and diarrhea. Patient states she does have a history of diverticulosis and approximately 2 weeks ago she ate raspberries, strawberries, and cherries which she has been told to avoid due to the diverticulosis. Review of Systems: Review of Systems: Constitutional: chills. [] Eyes: Denies change in visual acuity. [] HENT: Denies nasal congestion or sore throat. [] Respiratory: Denies cough or shortness of breath. [] Cardiovascular: Denies chest pain or edema. [] GI: left abdominal pain, denies nausea, vomiting, bloody stools or diarrhea. [] : Denies dysuria. [] Musculoskeletal: Left back pain Integument: Denies rash. [] Neurologic: Denies headache, focal weakness or sensory changes. [] Endocrine: Denies polyuria or polydipsia. [] Lymphatic: Denies swollen glands. [] Psychiatric: Denies depression or anxiety. [] Heart Score: C/O Chest Pain: No Risk Factors: Risk Factors: DM, Current or recent (<one month) smoker, HTN, HLP, family hi story of CAD, obesity. Risk Scores: Score 0 - 3: 2.5% MACE over next 6 weeks - Discharge Home Score 4 - 6: 20.3% MACE over next 6 weeks - Admit for Clinical Observation Score 7 - 10: 72.7% MACE over next 6 weeks - Early Invasive Strategies Current Medications: Current Medications Medications (Trade) Dose Ordered Sig/[place] Start Time Stop Time Status Last Admin Dose Admin Ketorolac Tromethamine (Toradol 15mg Vial) 15 mg 1X ONCE 06/30/21 10:00 06/30/21 10:01 DC 06/30/21 10:00 15 MG Sodium Chloride 1,000 ml @ 999 mls/hr 1X ONCE 06/30/21 10:00 06/30/21 11:00 06/30/21 10:00 999 MLS/HR Allergies: Allergies: Allergies Coded Allergies Type Severity Reaction Last Updated Verified codeine Allergy Intermediate 10/08/20 Yes ciprofloxacin Adverse Reaction Intermediate Nausea 01/31/20 Yes sulfamethoxazole Adverse Reaction Intermediate Nausea 01/31/20 Yes trimethoprim Adverse Reaction Intermediate Nausea 01/31/20 Yes Physical Exam: PE: Constitutional: Well developed, well nourished, moderate distress, non-toxic appearance. [] HENT: Normocephalic, atraumatic, bilateral external ears normal, oropharynx moist, no oral exudates, nose normal. [] Eyes: PERRLA, EOMI, conjunctiva normal, no discharge. [] Neck: Normal range of motion, no tenderness, supple, no stridor. [] Cardiovascular:Heart rate regular rhythm, no murmur [] Lungs & Thorax: Bilateral breath sounds clear to auscultation [] Abdomen: Bowel sounds normal, soft, tenderness in LLQ and LUQ with palpation no masses, no pulsatile masses. [] Skin: Warm, dry, no erythema, no rash. [] Back: Left hip and Back pain with palpation, straight leg raise is negative, no radiculopathy noted, Extremities: Left leg neurovascular intact, dorsalis pedis is 2+, no edema no tenderness with palpation Neurologic: Alert and oriented X 3, normal motor function, normal sensory function, no focal deficits noted. [] Psychologic: Affect normal, judgement normal, mood normal. [] Current Patient Data: Labs: Laboratory Tests Test 06/30/21 10:00 06/30/21 11:15 White Blood Count 6.3 x10^3/uL Red Blood Count 4.82 x10^6/uL Hemoglobin 12.5 g/dL Hematocrit 37.9 % Mean Corpuscular Volume 79 fL Mean Corpuscular Hemoglobin 26 pg Mean Corpuscular Hemoglobin Concent 33 g/dL Red Cell Distribution Width 16.0 % Platelet Count 144 x10^3/uL Neutrophils (%) (Auto) 75 % Lymphocytes (%) (Auto) 16 % Monocytes (%) (Auto) 7 % Eosinophils (%) (Auto) 1 % Basophils (%) (Auto) 1 % Neutrophils # (Auto) 4.7 x10^3/uL Lymphocytes # (Auto) 1.0 x10^3/uL Monocytes # (Auto) 0.5 x10^3/uL Eosinophils # (Auto) 0.1 x10^3/uL Basophils # (Auto) 0.1 x10^3/uL Sodium Level 139 mmol/L Potassium Level 4.3 mmol/L Chloride Level 105 mmol/L Carbon Dioxide Level 26 mmol/L Anion Gap 8 Blood Urea Nitrogen 12 mg/dL Creatinine 0.8 mg/dL Estimated GFR (Cockcroft-Gault) 69.6 BUN/Creatinine Ratio 15 Glucose Level 96 mg/dL Calcium Level 9.1 mg/dL Total Bilirubin 1.1 mg/dL Aspartate Amino Transf (AST/SGOT) 27 U/L Alanine Aminotransferase (ALT/SGPT) 29 U/L Alkaline Phosphatase 81 U/L Total Protein 7.7 g/dL Albumin 3.6 g/dL Albumin/Globulin Ratio 0.9 Lipase 79 U/L Urine Collection Type Unknown Urine Color (Auto) Yellow Urine Turbidity Clear Urine pH (Auto) 6.0 Urine Specific [place] 1.015 Urine Protein (Auto) Negative mg/dL Urine Glucose (Auto)(UA) Negative mg/dL Urine Ketones (Auto) Negative mg/dL Urine Blood (Auto) Negative Urine Nitrite Negative Urine Bilirubin (Auto) Negative Urine Urobilinogen (Auto) Normal mg/dL Urine Leukocyte Esterase (Auto) Large Urine RBC 0 /HPF Urine WBC 5-10 /HPF Urine Squamous Epithelial Cells Few /LPF Urine Bacteria Few /HPF Urine Mucus Slight /LPF Current Medications Medications (Trade) Dose Ordered Sig/[place] Route PRN Reason Start Time Stop Time Status Last Admin Dose Admin Sodium Chloride 1,000 ml @ 999 mls/hr 1X ONCE IV 06/30/21 10:00 06/30/21 11:00 DC 06/30/21 10:00 Ketorolac Tromethamine (Toradol 15mg Vial) 15 mg 1X ONCE IVP 06/30/21 10:00 06/30/21 10:01 DC 06/30/21 10:00 Vital Signs: Vital Signs Date Time Temp Pulse Resp B/P (MAP) Pulse Ox O2 Delivery O2 Flow Rate FiO2 06/30/21 12:16 84 20 157/78 (104) 98 06/30/21 08:54 98.0 78 20 202/86 (124) 98 Room Air 98.0 Vital Signs Date Time Temp Pulse Resp B/P (MAP) Pulse Ox O2 Delivery O2 Flow Rate FiO2 06/30/21 08:54 98.0 78 20 202/86 (124) 98 Room Air 98.0 EKG: EKG: [] Radiology/Procedures: Radiology/Procedures: REASON: LLQ abdominal pain PROCEDURE: CT ABDOMEN PELVIS WO CONTRAST Abdominal and Pelvis CT, Without Contrast: History: Reason: LLQ abdominal pain / Spl. Instructions: / History: Comparison: None. Procedure: Axial images are obtained of the abdomen and pelvis, without IV or oral contrast. Oral Contrast: No Findings: Evaluation of solid organs is limited without contrast. The gallbladder isn't seen and likely removed. The appendix is not visualized. The colon is partially collapsed limiting its evaluation. Liver: Normal. Spleen: Normal. Pancreas: Normal. Adrenal Glands: Normal. Kidneys: There is a small cortical calcification in the upper pole on the right. There is no free air or free fluid. There is no lymphadenopathy. The urinary bladder appears normal. There is no pericolonic inflammation identified. Impression: No acute findings. End impression PQRS Compliance Statement: One or more of the following individualized dose reduction techniques were utilized for this examination: 1. Automated exposure control 2. Adjustment of the mA and/or kV according to patient size 3. Use of iterative reconstruction technique Electronically signed by: Abril Lezama III, MD (06/30/2021 10:03 AM) [facility] DICTATED and SIGNED BY: ABRIL LEZAMA III, MD DATE: 06/30/21 0958[] Course & Med Decision Making: Course & Med Decision Making Pertinent Labs and Imaging studies reviewed. (See chart for details) 0620 patient appears nontoxic and in no acute distress, states her pain has improved greatly with the Toradol, I reviewed radiological and laboratory results with patient I did inform her that she continues to still have a urinary tract infection, we did find out that she took Macrobid previously for her UTI, I will give her a dose here of Rocephin and placed her on cephalexin 500 mg twice daily for 7 days, and I will have her follow-up with her primary care physician this week for further evaluation and management of her pain. I did offer the patient some outpatient opioid pain medication she declined at this time. Patient is encouraged to take [id number] Tylenol and/or ibuprofen as needed for her pain. Dragon Disclaimer: Dragon Disclaimer: This electronic medical record was generated, in whole or in part, using a voice recognition dictation system. Departure Departure Impression: Primary Impression: Urinary tract infection Qualified Codes: N30.00 - Acute cystitis without hematuria Additional Impression: Back pain Qualified Codes: M54.50 - Low back pain, unspecified Disposition: HOME / SELF CARE / HOMELESS Condition: STABLE Referrals: ADÁN MCMAHON APRN (PCP) Patient Instructions: Urinary Tract Infection Additional Instructions: Cephalexin take 1 tablet twice daily for 7 full days Increase by mouth fluid avoiding alcohol and caffeine products which may irritate the bladder Tylenol and/or ibuprofen as needed for pain Follow-up with your primary care physician this week for further evaluation and management of your low back pain Return here to the emergency department should you have increased pain, you have loss of bowel or bladder control, you develop a fever, or you are unable to take any by mouth medications due to nausea and vomiting. Scripts Cephalexin (CEPHALEXIN) 500 Mg Tablet 1 CAP PO BID, #[id number] CAP Prov: PATRICIA PERLA APRN 06/30/21 PATRICIA PERLA APRN June 30, 2021 10:19
[2021-06-30 10:27] LABS: CALCIUM 9.1 mg/dL (8.5-10.1); CREATININE 0.8 mg/dL (0.6-1.0); GFR 69.6; POTASSIUM 4.3 mmol/L (3.5-5.1)
[2021-06-30 10:30] LABS: ALBUMIN 3.6 g/dL (3.4-5.0); ALBUMIN/GLOBULIN RATIO 0.9 (1.0-1.7); TOTAL BILIRUBIN 1.1 mg/dL (0.2-1.0); TOTAL PROTEIN 7.7 g/dL (6.4-8.2)
[2021-06-30 11:34] LABS: BACTERIA,URINE FEW /HPF (0-FEW); RBC,URINE 0 /HPF (0-2)
[2021-06-30] MEDS ORDERED: CEPH500T PO (11:52)
[2021-06-30 12:16] VITALS: BP 157/78
[2021-06-30] MEDS ORDERED: cefTRIAXone IV Push 1 GM VIAL. IVP ONE (12:30)
== END 2021-06-30 12:17 | disposition home or self-care (01) ==
LOC: ER 08:43
DX: N30.00 Acute cystitis without hematuria (principal); M54.50 Low back pain, unspecified; K21.9 Gastro-esophageal reflux disease without esophagitis; E78.00 Pure hypercholesterolemia, unspecified; I10 Essential (primary) hypertension; Z86.73 Personal history of transient ischemic attack (TIA), and cerebral infarction without residual deficits; Z95.1 Presence of aortocoronary bypass graft; Z95.0 Presence of cardiac pacemaker; Z88.2 Allergy status to sulfonamides; Z88.5 Allergy status to narcotic agent; Z88.1 Allergy status to other antibiotic agents
CPT/HCPCS: 36415; 74176; 80053; 81001; 83690; 85025; 87086; 96361; 96374; 96375; 99284; J0696; J1885; J7030